=== PATIENT | female | born 1935 | race Caucasian/White ===

== ENCOUNTER 2017-10-01 16:18 | Emergency (ER) | payer MEDICARE, OTHER ==
[2017-10-01 16:29] VITALS: TEMP 97.4
--- NOTE | 2017-10-01 17:11 | RAD ---
PROCEDURE: CHEST RADIOGRAPH, 1 VIEW HISTORY: SOB COMPARISON: Comparison is made to 09/17/2013 FINDINGS: LUNGS: Prominent lung markings is seen. Hyperinflation of the lungs is again noted suspicious for emphysema. PLEURA: No pneumothorax or pleural fluid seen. CARDIOVASCULAR: The cardiac silhouette is mildly enlarged. OSSEOUS STRUCTURES: No significant abnormalities. VISUALIZED UPPER ABDOMEN: Normal. OTHER FINDINGS: None. IMPRESSION: Emphysema versus COPD again noted.
--- NOTE | 2017-10-01 17:12 | RAD ---
PROCEDURE: Radiographs of the Lumbar Spine. HISTORY: LBP s/p slip and fall 3 days ago COMPARISON: No prior. FINDINGS: BONES: Age-indeterminate moderate to severe compression deformity of T12 moderate compression deformity of L2 L4 and L5 are noted. DISC SPACES: Moderate degenerative disc changes associated with multilevel disc is space narrowing and marginal osteophyte formation. OTHER FINDINGS: None. IMPRESSION: Age indeterminate multiple compression deformities in the lumbar spine and lower thoracic spine more prominent at T12, L2, L4 and L5. Moderate degenerative disc changes.
[2017-10-01 17:15] LABS: BASO # 0.1 K/uL (0.0-0.2); BASO % 0.9 % (0.0-2.0); EOS # 0.3 K/uL (0.0-0.7); EOS % 2.6 % (0.0-4.0); HEMOGLOBIN 13.8 g/dL (11.0-16.0); LYMPH # 1.6 K/uL (1.0-4.3); LYMPH % 16.2 % (20.0-40.0); MEAN CELL VOLUME 80.7 fL (81.0-99.0); MEAN CORPUSCULAR HEMOGLOBIN 27.1 pg (27.0-31.0); MEAN CORPUSCULAR HGB CONC 33.6 g/dL (33.0-37.0); MEAN PLATELET VOLUME 8.3 fL (7.2-11.7); MONO # 0.7 K/uL (0.0-0.8); MONO % 6.7 % (0.0-10.0); NEUT # 7.4 K/uL (1.8-7.0); NEUT % 73.6 % (50.0-75.0); NRBC % 0.1 % (0.0-2.0); RBC 5.1 Mil/uL (3.80-5.20); RED CELL DISTRIBUTION WIDTH 14.2 % (11.5-14.5)
[2017-10-01 17:23] LABS: ALB/GLOB RATIO 0.9 (1.0-2.1); ALBUMIN 3.7 g/dL (3.5-5.0); ALT/SGPT 25 U/L (9-52); AST/SGOT 17 U/L (14-36); BLOOD UREA NITROGEN 24 mg/dL (7-17); CALCIUM 9.6 mg/dl (8.6-10.4); GFR AFRICAN-AMERICAN > 60; GFR NON-AFRICAN AMERICAN 53
--- NOTE | 2017-10-01 17:23 | RAD ---
PROCEDURE: Radiographs of the pelvis and bilateral hips HISTORY: R hip pain x 3 days COMPARISON: None. FINDINGS: BONES: Pelvis: No evidence of acute displaced fracture. Right hip:Status post internal fixation through the right femoral neck and shaft likely due to prior intertrochanteric or neck femur fracture. The hardware are seen at appropriate position without evidence of loosening Left hip:Unremarkable. JOINTS: Right hip: Mild osteoarthritic changes Left hip: Mild osteoarthritic changes. Sacroiliac Joints: It arthritic changes. Pubic symphysis: Nxel-[id number] arthritic changes SOFT TISSUES: Normal. OTHER FINDINGS: Diffuse osteopenia noted. IMPRESSION: No evidence of acute displaced fracture.
[2017-10-01] MEDS ORDERED: Sodium Chloride 0.9% 500 ML IV ONE (17:39)
--- NOTE | 2017-10-01 17:41 | C.PDOC ---
History Of Present Illness Patient is an 81 y/o female who presents to the ED with a complaint of right hip pain for the last 3 days. Patient reports she slipped, prompting the onset of the pain, but denies falling. Admits to applying heating pad, worsening pain. Patient has a Hx of right hip surgery with hardware. No other physical complaints at this time. Time Seen by Provider: 10/01/17 16:26 Chief Complaint (Nursing): Lower Extremity Problem/Injury History Per: Patient History/Exam Limitations: no limitations Onset/Duration Of Symptoms: Days (3 days) Current Symptoms Are (Timing): Still Present Recent travel outside of the [place]: No - Hip Description Of Injury: Other (slipped). denies: Fell Past Medical History Reviewed: Historical Data, Nursing Documentation, Vital Signs Vital Signs: Last Vital Signs Temp 97.4 F L 10/01/17 16:26 Pulse 79 10/01/17 19:57 Resp 18 10/01/17 19:57 BP 174/70 H 10/01/17 19:57 Pulse Ox 99 10/01/17 23:44 - Medical History PMH: No Chronic Diseases Other Surgeries: right hip surgery with hardware Family History: States: No Known Family Hx Review Of Systems Except As Marked, All Systems Reviewed And Found Negative. Musculoskeletal: Positive for: Other (right hip pain) Physical Exam - Physical Exam Appears: Well, Non-toxic, In Acute Distress (moderate) Skin: Normal Color, Warm, Dry Head: Atraumatic, Normacephalic Oral Mucosa: Moist Chest: Symmetrical Cardiovascular: Rhythm Regular, No Murmur Respiratory: Normal Breath Sounds, No Rales, No Rhonchi, No Wheezing Back: Normal Inspection, No Vertebral Tenderness, No Paraspinal Tenderness, Other (negative pain in mid spine or lower back) Extremity: Other (pain to right hip ) Neurological/Psych: Oriented x3, Normal Speech, Normal Cognition, Normal Motor, Normal Sensation, Normal Reflexes, Other (no focal deficits) ED Course And Treatment - Laboratory Results Result Diagrams: 10/01/17 17:05 10/01/17 17:05 Lab Interpretation: Abnormal (+ mild hyponatremia) ECG: Interpreted By Me ECG Rhythm: Atrial Fibrillation ECG Interpretation: No Changes From Prior Rate From EC O2 Sat by Pulse Oximetry: 99 Pulse Ox Interpretation: Normal - Radiology CXR: Interpreted by Me, Viewed By Me CXR Interpretation: Yes: Other (IMPRESSION: emphysema veresus COPD again noted. ) - Other Rad LS spine X-Ray: Interpreted by Me, Viewed By Me Interpretation: IMPRESSION: Age indeterminate multiple compression deformities in the lumbar spine and lower thoracic spine more prominent at T12, L2, L4, and L5. Moderate degenerateive disc changes. Hip w/ pelvis gurmeet X-Ray: Interpreted by Me, Viewed By Me Interpretation: IMPRESSION: No evidence of acute displaced fracture. - CT Scan/US CT LS Spine Other Rad Studies (CT/US): Radiology Report Reviewed (Comp Fx's T12, L2, L4, L5 , no sig neurologcal pathology.) Progress Note: ice packs, toradol, Tramadol Reevaluation Time: 19:12 Reassessment Condition: Improved - Physician Consult Information Outcome Of Conversation: 1630 and 1900:d/w Dr. Sharon Stanley, ok to d/c home. Medical Decision Making Medical Decision Making: Lumbar spine CT, EKG, and UA ordered. Toradol, Ultram, and IV fluids administered. R hip strain/sprain w h/o old fx with internal hardware, no new fx., prob strain /sprain 3 days ago, worse with heat therapies, and now improved with ice, NSAIDS , Tramadol. Improved gait, ok for d/c per PMD Mild hyponatramia improved with IVF and should improved with better nutrition. Atrial Fibrillation- chronic- PMD following. Eliquis 2.5 ordered and prescribed. Disposition Doctor Will See Patient In The: Office Counseled Patient/Family Regarding: Studies Performed, Diagnosis - Disposition Referrals: Jelena Stanley MD [Staff Provider] - Disposition: HOME/ ROUTINE Disposition Time: 19:14 Condition: GOOD Additional Instructions: ice therapy 1/2 hour per hour, nothing hot Motrin 400-600 mg every 6 hours as needed Tramadol 50 mg (narcotic pain reliever) 1 tablet every 6 hours as needed Follow-up with Orthopedics or Dr. Sharon Stanley as needed Atrial Fibrillation: Eliquis 2.5 mg tab twice a day. Prescriptions: Apixaban [Eliquis] 2.5 mg PO BID #60 tablet traMADol [Ultram] 50 mg PO Q6H PRN #20 tab PRN Reason: pain Instructions: Atrial Fibrillation (ED), Vertebral Compression Fracture (ED), Arthralgia (ED) Forms: [employer] (Bel[place]ian) - Clinical Impression Clinical Impression: Right hip pain, Chronic lower back pain - Scribe Statement The provider has reviewed the documentation as recorded by the Scribe Charlee Moe All medical record entries made by the Scribe were at my direction and personally dictated by me. I have reviewed the chart and agree that the record accurately reflects my personal performance of the history, physical exam, medical decision making, and the department course for this patient. I have also personally directed, reviewed, and agree with the discharge instructions and disposition.
--- NOTE | 2017-10-01 19:05 | CT ---
EXAM: CT Lumbar Spine Without Intravenous Contrast EXAM DATE/TIME: 10/01/2017 5:39 PM CLINICAL HISTORY: 81 years old, female; Pain; Low back pain; Additional info: T12, l2, l4, l5 comp fx's TECHNIQUE: Axial computed tomography images of the lumbar spine without intravenous contrast. All CT scans at this facility use one or more dose reduction techniques, viz.: automated exposure control; ma/kV adjustment per patient size (including targeted exams where dose is matched to indication; i.e. head); or iterative reconstruction technique. Coronal and sagittal reformatted images were created and reviewed. COMPARISON: There are no prior studies for comparison. FINDINGS: Vertebrae: Bony structures are osteopenic. There are degenerative changes at all levels. There is a mild convex left curve. There degenerative osteophytes at all levels. There is compression fracture of T12 with deformity of superior and inferior endplates. There is associated deformity of the T11-T12 and T12-L1 disc spaces. There are anterior bridging osteophytes T11-T12 and T12-L1. L1 vertebral body is normal in height. There is a compression fracture of L2 with endplate deformity greatest superiorly there is posterior disc space narrowing L1-L2 and L2-L3. There is mild disc bulging L2-L3.. There is mild bowing of the inferior endplate. L3 is normal in height. There is compression fracture of L4 with deformity of superior endplate. There is deformity of the L3-L4 disc space. Compression fracture L5 with deformity of superior endplate. There is L4-L5 disc space narrowing greatest posteriorly. There is L5-S1 disc space narrowing greatest posteriorly. There are no sacral fractures.Posterior elements are intact at all levels. There is degenerative facet disease.Spinous processes align in the expected fashion. Sacroiliac joints are patent. Discs/spinal canal/neural foramina: See above. Soft tissues: Psoas and paraspinous muscles are symmetric. Vasculature: There are vascular calcifications. Stomach and bowel: There is diverticulosis. There is a fecal ball within the rectum. IMPRESSION: Compression fractures T12, L 2, L4 and L5, correlate with history provided; osteopenia degenerative change
[2017-10-01 19:15] LABS: SQUAMOUS EPITHIAL 4 /hpf (0-5); URINE BILIRUBIN NEGATIVE (NEGATIVE); URINE BLOOD NEGATIVE (NEGATIVE); URINE CLARITY Clear (Clear); URINE COLOR Yellow (YELLOW); URINE GLUCOSE (UA) NORMAL (Normal); URINE LEUKOCYTE ESTERASE NEG Leu/uL (Negative); URINE NITRATE NEGATIVE (NEGATIVE); URINE PROTEIN NEGATIVE (NEGATIVE); URINE UROBILINOGEN NORMAL mg/dL (0.2-1.0)
[2017-10-01 19:58] VITALS: BP 174/70; PULSE 79; RESP 18
[2017-10-01 23:44] VITALS: O2SAT 99
--- NOTE | 2017-10-04 12:50 | CARD ---
APPROVED REPORT EKG Measurement Heart [id number] <Conclusion> Atrial fibrillation Septal infarct, age undetermined ST & T wave abnormality, consider inferior ischemia ST & T wave abnormality, consider anterolateral ischemia Abnormal ECG
== END 2017-10-01 19:58 | disposition home or self-care (01) ==
LOC: C.ER 16:18
DX: G89.29 Other chronic pain (principal); M54.5 Low back pain; M25.551 Pain in right hip
CPT/HCPCS: 71010; 72100; 72131; 73521; 80053; 81001; 84484; 85025; 93005; 96372; 99285; J1885; J7040

== ENCOUNTER 2017-11-07 13:57 | Inpatient (IN) | payer MEDICARE, OTHER ==
[2017-11-07 14:04] VITALS: BMI 26.4
[2017-11-07] MEDS ORDERED: Morphine 4 MG/ML VIAL ONE (14:28)
[2017-11-07 15:01] LABS: BASO # 0.1 K/uL (0.0-0.2); BASO % 0.8 % (0.0-2.0); EOS # 0.3 K/uL (0.0-0.7); EOS % 2.7 % (0.0-4.0); HEMOGLOBIN 12.2 g/dL (11.0-16.0); LYMPH % 9.8 % (20.0-40.0); MEAN CELL VOLUME 78.9 fL (81.0-99.0); MEAN CORPUSCULAR HEMOGLOBIN 27.1 pg (27.0-31.0); MEAN CORPUSCULAR HGB CONC 34.3 g/dL (33.0-37.0); MEAN PLATELET VOLUME 9.4 fL (7.2-11.7); MONO # 0.6 K/uL (0.0-0.8); NEUT # 7.9 K/uL (1.8-7.0); NEUT % 80.7 % (50.0-75.0); PLATELET COUNT 316 K/uL (130-400); RBC 4.51 Mil/uL (3.80-5.20); WHITE BLOOD COUNT 9.8 K/uL (4.8-10.8)
[2017-11-07 15:07] LABS: INR 1.7; PROTHROMBIN TIME 18.9 SECONDS (9.7-12.2)
[2017-11-07 15:09] LABS: ALB/GLOB RATIO 1.1 (1.0-2.1); ALBUMIN 3.8 g/dL (3.5-5.0); ALT/SGPT 31 U/L (9-52); AST/SGOT 35 U/L (14-36); BLOOD UREA NITROGEN 18 mg/dL (7-17); CALCIUM 8.7 mg/dl (8.6-10.4); GFR AFRICAN-AMERICAN > 60; GFR NON-AFRICAN AMERICAN > 60
[2017-11-07 15:23] LABS: EOSINOPHIL 3 % (0-4); LYMPHOCYTE 12 % (20-40); MONOCYTE 3 % (0-10); NEUTROPHIL 82 % (50-75); TOTAL CELLS COUNTED 100
[2017-11-07 15:25] LABS: PLATELET ESTIMATE NORMAL (NORMAL)
--- NOTE | 2017-11-07 15:40 | RAD ---
HISTORY: s/p fall COMPARISON: Chest x-ray performed 10/01/17 TECHNIQUE: Chest, one view. FINDINGS: LUNGS: Biapical pleural thickening. Right hilar prominence. Please note that chest x-ray has limited sensitivity for the detection of pulmonary masses. PLEURA: No significant pleural effusion identified. No definite pneumothorax . CARDIOVASCULAR: Cardiomegaly. Dense atherosclerotic calcifications of the aortic knob. OSSEOUS STRUCTURES: Osseous demineralization. Degenerative changes. VISUALIZED UPPER ABDOMEN: Unremarkable. OTHER FINDINGS: None. IMPRESSION: Biapical pleural thickening. Right hilar prominence. Cardiomegaly. Dense atherosclerotic calcifications of the aortic knob.
--- NOTE | 2017-11-07 15:43 | RAD ---
PROCEDURE: Radiographs of the Right Shoulder HISTORY: Pain s/p fall COMPARISON: None available. FINDINGS: BONES: Osseous demineralization. Degenerative changes. No acute displaced fracture. The distal clavicle and underlying ribs appear intact. JOINTS: No acute dislocation. SOFT TISSUES: Soft tissues appear unremarkable. No evidence of radiopaque foreign body. Partially imaged dense atherosclerotic calcifications of the aortic knob. Biapical pleural thickening. IMPRESSION: No acute displaced fracture or dislocation evident. If symptoms persist or if there is continued clinical concern, x-ray follow-up in 7-10 days should be considered.
--- NOTE | 2017-11-07 15:52 | RAD ---
Indication: Pain s/p fall, h/o ORIF Right hip with pelvis radiographs Comparison: Bilateral hips with pelvis performed 10/01/17 Findings: Osseous demineralization limits evaluation for acute fracture lines. Status post internal fixation of the right femoral neck with metallic carlos and screw fixation partially imaged. No acute displaced fracture identified. No dislocation identified. Dense vascular calcifications. Extensive degenerative changes of the lower lumbar spine. Nonspecific bowel gas pattern. Mild to moderate constipation partially imaged. Impression: Osseous demineralization. Degenerative changes. Status post fixation right femoral neck. No acute displaced fracture or dislocation evident. If high clinical index of suspicion, suggest cross-sectional imaging for further evaluation. Otherwise, if symptoms persist or if there is continued clinical concern, x-ray follow-up in 7-10 days should be considered.
--- NOTE | 2017-11-07 16:24 | C.PDOC ---
History Of Present Illness Pt has been having generalized weakness for several days and then she fell today. Time Seen by Provider: 11/07/17 14:01 Chief Complaint (Nursing): Trauma History Per: Patient, Family Current Symptoms Are (Timing): Still Present Current Symptoms: Generalized weakness Fall Associated With With Symptoms: Yes, Positive Injury (right side of body) Severity: Moderate Additional History Per: Prior Records - Symptoms Of CVA Recent Head Trauma: No Past Medical History Reviewed: Historical Data, Nursing Documentation, Vital Signs Vital Signs: Last Vital Signs Temp 98.1 F 11/07/17 14:00 Pulse 74 11/07/17 16:06 Resp 18 11/07/17 16:06 BP 150/74 11/07/17 16:06 Pulse Ox 100 11/07/17 16:06 - Medical History PMH: CHF, HTN Other Surgeries: ORIF of right hip Family History: States: Unknown Family Hx - Social History Hx Alcohol Use: No Hx Substance Use: No - Immunization History Hx Tetanus Toxoid Vaccination: No Hx Influenza Vaccination: No Hx Pneumococcal Vaccination: No Review Of Systems Constitutional: Positive for: Weakness. Negative for: Fever Cardiovascular: Negative for: Chest Pain Respiratory: Negative for: Shortness of Breath Gastrointestinal: Negative for: Vomiting, Abdominal Pain Musculoskeletal: Positive for: Shoulder Pain (right). Negative for: Neck Pain Neurological: Negative for: Seizures, Headache Physical Exam - Physical Exam Appears: Chronically Ill Skin: Normal Color, Warm, Dry Head: Atraumatic Eye(s): bilateral: PERRL, EOMI Neck: Normal ROM, No Midline Cervical Tenderness, No Step Off Deformity, Supple Chest: Symmetrical, No Deformity Cardiovascular: Rhythm Irregular Respiratory: Normal Breath Sounds, No Accessory Muscle Use Gastrointestinal/Abdominal: Soft, No Tenderness Extremity: Tenderness (right hip area and right shoulder area), No Deformity Neurological/Psych: Oriented x3, Normal Motor, Normal Sensation ED Course And Treatment - Laboratory Results Result Diagrams: 11/07/17 14:47 11/07/17 14:47 Lab Interpretation: Abnormal Interpretation Of Abnormal: Hyponatremia ECG: Interpreted By Me, Viewed By Me ECG Rhythm: Atrial Flutter, Nonspecific Changes Rate From EC O2 Sat by Pulse Oximetry: 100 Pulse Ox Interpretation: Normal - Radiology CXR: Viewed By Me, Read By Radiologist CXR Interpretation: Yes: No Acute Disease, Cardiomegaly Progress - Interventions Interventions:: Observation - Medications Administered Intravenous: Opiate - Data Reviewed Data Reviewed: Lab, Diagnostic imaging, EKG, Old records - Patient Status Patient status: Partially improved - Continuity of Care Discussed patient case with:: Patient, Family-HIPPA compliant, ED Nurse, PMD - Patient Plan Patient Plan: Admission, Telemetry Disposition Discussed With : Jelena Stanley Comment: He accepted pt on his service. Doctor Will See Patient In The: Hospital Counseled Patient/Family Regarding: Studies Performed, Diagnosis - Disposition Disposition: HOSPITALIZED Disposition Time: 16:26 Condition: GUARDED - Clinical Impression Clinical Impression: Hyponatremia, Fall at home, Generalized weakness
--- NOTE | 2017-11-07 19:34 | CP.PCM.HP ---
Past Patient History - Past Social History Smoking Status: Never Smoked - CARDIAC Hx Congestive Heart Failure: Yes Hx Hypertension: Yes - ENDOCRINE/METABOLIC Hx Endocrine Disorders: Yes Hx Diabetes Mellitus Type 2: Yes - PSYCHIATRIC Hx Substance Use: No - SURGICAL HISTORY Hx Surgeries: Yes Hx Cataract Extraction: Yes Hx Hysterectomy: Yes Meds Allergies/Adverse Reactions: Allergies Allergy/AdvReac Type Severity Reaction Status Date / Time No Known Allergies Allergy Verified 10/01/17 16:28 Physical Exam - Constitutional Appears: Well - Head Exam Head Exam: ATRAUMATIC, NORMAL INSPECTION, NORMOCEPHALIC - Eye Exam Eye Exam: EOMI, Normal appearance, PERRL Pupil Exam: NORMAL ACCOMODATION, PERRL - ENT Exam ENT Exam: Mucous Membranes Moist, Normal Exam - Neck Exam Neck exam: Positive for: Normal Inspection - Respiratory Exam Respiratory Exam: Decreased Breath Sounds - Cardiovascular Exam Cardiovascular Exam: REGULAR RHYTHM, +S1, +S2 - GI/Abdominal Exam GI & Abdominal Exam: Diminished Bowel Sounds, Soft - Rectal Exam Rectal Exam: Deferred Results - Vital Signs Recent Vital Signs: Last Vital Signs Temp 98.1 F 11/07/17 14:00 Pulse 75 11/07/17 18:30 Resp 12 11/07/17 18:30 BP 140/63 11/07/17 18:30 Pulse Ox 97 11/07/17 18:02 - Labs Result Diagrams: 11/07/17 14:47 11/07/17 14:47 Labs: Laboratory Results - last 24 hr 11/07/17 11/07/17 11/07/17 14:47 14:47 14:47 WBC 9.8 RBC 4.51 Hgb 12.2 Hct 35.6 MCV 78.9 L MCH 27.1 MCHC 34.3 RDW 14.0 Plt Count 316 MPV 9.4 Neut % (Auto) 80.7 H Lymph % (Auto) 9.8 L [place] % (Auto) 6.0 Eos % (Auto) 2.7 Baso % (Auto) 0.8 Neut # (Auto) 7.9 H Lymph # (Auto) 1.0 [place] # (Auto) 0.6 Eos # (Auto) 0.3 Baso # (Auto) 0.1 Neutrophils % (Manual) 82 H Lymphocytes % (Manual) 12 L Monocytes % (Manual) 3 Eosinophils % (Manual) 3 Platelet Estimate Normal RBC Morphology Normal PT 18.9 H INR 1.7 APTT 38 H Sodium 117 L* Potassium 3.6 Chloride 79 L Carbon Dioxide 28 Anion Gap 14 BUN 18 H Creatinine 0.8 Est GFR ( Amer) > 60 Est GFR (Non-Af Amer) > 60 Random Glucose 141 H Calcium 8.7 Total Bilirubin 1.0 AST 35 ALT 31 Alkaline Phosphatase 125 Total Protein 7.2 Albumin 3.8 Globulin 3.4 Albumin/Globulin Ratio 1.1 Urine Osmolality 11/07/17 19:23 WBC RBC Hgb Hct MCV MCH MCHC RDW Plt Count MPV Neut % (Auto) Lymph % (Auto) [place] % (Auto) Eos % (Auto) Baso % (Auto) Neut # (Auto) Lymph # (Auto) [place] # (Auto) Eos # (Auto) Baso # (Auto) Neutrophils % (Manual) Lymphocytes % (Manual) Monocytes % (Manual) Eosinophils % (Manual) Platelet Estimate RBC Morphology PT INR APTT Sodium Potassium Chloride Carbon Dioxide Anion Gap BUN Creatinine Est GFR ( Amer) Est GFR (Non-Af Amer) Random Glucose Calcium Total Bilirubin AST ALT Alkaline Phosphatase Total Protein Albumin Globulin Albumin/Globulin Ratio Urine Osmolality 204 L
[2017-11-07] MEDS: (Novolog) Insulin Aspart, Recombinant 100 u/ml 10 ml vial SC SCH (23:06)
[2017-11-08] MEDS: Morphine 4 MG/ML VIAL IVP PRN ×2 (01:08→21:08)
[2017-11-08 06:34] LABS: BASO # 0.1 K/uL (0.0-0.2); BASO % 1.4 % (0.0-2.0); EOS # 0.4 K/uL (0.0-0.7); EOS % 4.7 % (0.0-4.0); HEMOGLOBIN 12.2 g/dL (11.0-16.0); LYMPH # 1.3 K/uL (1.0-4.3); LYMPH % 15.6 % (20.0-40.0); MEAN CORPUSCULAR HEMOGLOBIN 27.1 pg (27.0-31.0); MEAN CORPUSCULAR HGB CONC 34.3 g/dL (33.0-37.0); MEAN PLATELET VOLUME 9.3 fL (7.2-11.7); MONO # 0.6 K/uL (0.0-0.8); MONO % 7.5 % (0.0-10.0); NEUT # 5.9 K/uL (1.8-7.0); NEUT % 70.8 % (50.0-75.0); NRBC % 0.1 % (0.0-2.0); RBC 4.49 Mil/uL (3.80-5.20); RED CELL DISTRIBUTION WIDTH 14.5 % (11.5-14.5); WHITE BLOOD COUNT 8.3 K/uL (4.8-10.8)
[2017-11-08] MEDS: (Novolog) Insulin Aspart, Recombinant 100 u/ml 10 ml vial SC SCH ×4 (07:13→21:13)
[2017-11-08 07:41] LABS: ALB/GLOB RATIO 1.1 (1.0-2.1); ALBUMIN 3.5 g/dL (3.5-5.0); ALT/SGPT 25 U/L (9-52); AST/SGOT 25 U/L (14-36); BLOOD UREA NITROGEN 14 mg/dL (7-17); CALCIUM 8.7 mg/dl (8.6-10.4); GFR AFRICAN-AMERICAN > 60; GFR NON-AFRICAN AMERICAN > 60
[2017-11-08] MEDS: Metoprolol Succinate 12.5 mg XL PO SCH (09:31)
[2017-11-08] MEDS: Enoxaparin 40 mg Syringe SC SCH (09:31)
[2017-11-08] MEDS: Pantoprazole 40 mg EC Tab PO SCH (09:31)
[2017-11-08] MEDS: Lidocaine 5% Patch TD SCH (11:25)
[2017-11-08 11:26] LABS: URINE BACTERIA RARE (<OCC); URINE BILIRUBIN NEGATIVE (NEGATIVE); URINE BLOOD NEGATIVE (NEGATIVE); URINE CLARITY Clear (Clear); URINE COLOR Straw (YELLOW); URINE GLUCOSE (UA) NORMAL (Normal); URINE LEUKOCYTE ESTERASE NEG Leu/uL (Negative); URINE NITRATE NEGATIVE (NEGATIVE); URINE PROTEIN NEGATIVE (NEGATIVE); URINE UROBILINOGEN NORMAL mg/dL (0.2-1.0)
--- NOTE | 2017-11-08 12:00 | CARD ---
APPROVED REPORT EKG Measurement Heart [id number] NM P-70 [id number] <Conclusion> Atrial flutter with variable AV block ST & T wave abnormality, consider inferior ischemia Abnormal ECG
--- NOTE | 2017-11-08 16:40 | CP.PCM.PN ---
Subjective - Date & Time of Evaluation Date of Evaluation: 11/08/17 Time of Evaluation: 13:00 - Subjective Subjective: clinically same Objective - Vital Signs/Intake and Output Vital Signs (last 24 hours): Temp Pulse Resp BP Pulse Ox 97.6 F 110 H 20 99/63 L 98 11/08/17 15:58 11/08/17 15:58 11/08/17 15:58 11/08/17 15:58 11/08/17 15:58 Intake and Output: 11/08/17 11/08/17 06:59 18:59 Intake Total 540 Output Total 400 Balance 140 - Medications Medications: Current Medications Cyclobenzaprine HCl (Flexeril) 10 mg PO DAILY [facility] Last Admin: 11/08/17 09:31 Dose: 10 mg Enoxaparin Sodium (Lovenox) 40 mg SC DAILY [facility] Last Admin: 11/08/17 09:31 Dose: 40 mg Insulin Aspart (Novolog) 0 unit SC [facility] PRN Reason: Protocol Last Admin: 11/08/17 12:23 Dose: Not Given Lidocaine (Lidoderm) 2 ea TD DAILY [facility] Last Admin: 11/08/17 11:25 Dose: 2 ea Metformin HCl (Glucophage) 500 mg PO BID [facility] Last Admin: 11/08/17 09:31 Dose: 500 mg Metoprolol Succinate (Toprol Xl) 12.5 mg PO DAILY [facility] Last Admin: 11/08/17 09:31 Dose: 12.5 mg Montelukast Sodium (Singulair) 10 mg PO HS [facility] Last Admin: 11/07/17 21:20 Dose: 10 mg Morphine Sulfate (Morphine) 2 mg IVP Q4 PRN PRN Reason: Pain, moderate (4-7) Last Admin: 11/08/17 01:08 Dose: 2 mg Pantoprazole Sodium (Protonix Ec Tab) 40 mg PO DAILY [facility] Last Admin: 11/08/17 09:31 Dose: 40 mg Pneumococcal Polyvalent Vaccine (Pneumovax 23 Vaccine) 0.5 ml IM .ONCE ONE Stop: 11/09/17 10:01 Rosuvastatin Calcium (Crestor) 10 mg PO HS [facility] Last Admin: 11/07/17 21:20 Dose: 10 mg Sitagliptin Phosphate (Januvia) 50 mg PO DAILY [facility] Last Admin: 11/08/17 09:31 Dose: 50 mg Sodium Chloride (Sodium Chloride Tab) 1 gm PO BID [facility] Last Admin: 11/08/17 09:31 Dose: 1 gm - Labs Labs: 11/08/17 06:21 11/08/17 06:21 PT 18.9 SECONDS (9.7-12.2) H 11/07/17 14:47 INR 1.7 11/07/17 14:47 APTT 38 SECONDS (21-34) H 11/07/17 14:47 - Constitutional Appears: Well - Head Exam Head Exam: ATRAUMATIC, NORMAL INSPECTION, NORMOCEPHALIC - Eye Exam Eye Exam: EOMI, Normal appearance, PERRL Pupil Exam: NORMAL ACCOMODATION, PERRL - ENT Exam ENT Exam: Mucous Membranes Moist, Normal Exam - Neck Exam Neck Exam: Full ROM, Normal Inspection. absent: Lymphadenopathy - Respiratory Exam Respiratory Exam: Decreased Breath Sounds - Cardiovascular Exam Cardiovascular Exam: REGULAR RHYTHM, +S1, +S2 - GI/Abdominal Exam GI & Abdominal Exam: Soft, Diminished Bowel Sounds - Rectal Exam Rectal Exam: Deferred
--- NOTE | 2017-11-08 21:02 | CON ---
DATE: HISTORY OF PRESENT ILLNESS: The patient was admitted by Dr. Danielle Stanley with a diagnosis of hyponatremia, generalized weakness and fall. The patient was seen by me in my office recently. Previously, she had a fracture of the right hip - intertrochanteric fracture, treated with open reduction and internal fixation with intramedullary nail. When she fell, she started complaining of pain in the right hip and right shoulder. She was seen by me recently for severe low back pain. She has evidence of lumbar spinal stenosis. Tenderness from L1 to S1 noted. Bilateral sciatic notch tenderness. Kyphosis deformity noted. PHYSICAL EXAMINATION: EXTREMITIES: Examination of the right shoulder reveals tenderness over the anterior aspect of the shoulder. No crepitus noted. Range of motion in shoulder is painful. Tenderness also noted over the acromioclavicular joint. Examination of the right tip revealed a well healed surgical scars. Prominence noted below the greater trochanter. The range of motion of the hip is painful in the extremes. No evidence of loosening of the intramedullary fixation noted. RADIOLOGIC DATA: X-rays of the right shoulder revealed degenerative joint disease changes. No evidence of fractures or dislocations noted. X-rays of the right hip revealed intramedullary carlos in place with prominence of the lag screw. DIAGNOSES: 1. Contusion of the right hip status post open reduction and internal fixation with intramedullary carlos. 2. Contusion of the right shoulder and sprain of the right shoulder. 3. Lumbar spinal stenosis. PLAN: 1. The patient was supposed to get lumbar epidural injection, but could not be get them due to insurance issues and she being on anticoagulants. Currently, the anticoagulants will be discontinued. We will try to administer lumbar epidural injection in [facility]3]. 2. We will start the patient on physical therapy. Ambulation and weightbearing as tolerated. 3. Lidoderm patches to be applied to the right shoulder and right hip 12 hours a day. We will follow the patient. Case was discussed with Dr. Danielle Stanley. Wale Martinez MD
--- NOTE | 2017-11-09 02:24 | CON ---
DATE: 11/08/2017 REFERRING PHYSICIAN: Danielle Stanley MD HISTORY OF PRESENT ILLNESS: An 81-year-old female, who was brought in with a history of fall, hurt her back and hip. The patient has been seen and evaluated by orthopedic Dr. Martinez and Dr. Sharon Stanley. The patient is scheduled for epidural in coming few days. The patient has a history of diabetes, hypertension, high cholesterol, atrial fibrillation. She came in after a fall, so essentially she is bed to chair ridden. HOME MEDICATIONS: She was maintained on digoxin 0.125, metformin 750, Januvia, metoprolol 25 mg p.o. daily, and simvastatin. PERSONAL HISTORY: Does not smoke. Does not drink. ALLERGIES: DENIED. PAST SURGICAL HISTORY: Cataract surgery, hysterectomy, right hip surgery for replacement, also fracture of right wrist. FAMILY HISTORY: Positive for hypertension. REVIEW OF SYSTEMS: CONSTITUTIONAL: Generalized weakness is noted, SKIN: No rashes. HEAD: No headaches. EYES: No visual disturbances. NECK: No swollen glands. PULMONARY: Denies any cough. Shortness of breath is noted. CARDIAC: She does have occasional chest discomfort, shortness of breath, history of hypertension, history of atrial fibrillation on Xarelto, which was started about two days ago. GI: Negative for abdominal pain. : Negative for dysuria. MUSCULOSKELETAL: Severe back pain and multiple joint pains. NEUROLOGICALLY: Dizziness is noted, questionable syncope. PHYSICAL EXAMINATION: GENERAL: Shows elderly female, chronically sick, in no acute distress. VITAL SIGNS: She is 5 feet, weighs 135 pounds. Her blood pressure is 108/75, heart rate of 88, AFib on the monitor, respiratory rate of 20, temperature of 97.6, O2 sat is 98 on room air. HEENT: Head is normocephalic. Eyes; no pallor, no icterus. Mouth, absence of multiple teeth. LUNGS: Clear to auscultation bilaterally. HEART: PMI is not localized. S1 and S2 is distant and irregular. Grade 2/6 holosystolic murmur mitral. ABDOMEN: Soft and nontender. EXTREMITIES: No cyanosis, clubbing or edema. Distal pulses are intact. LABORATORY DATA: Hemoglobin is 12.2, platelet counts are normal, Sodium was 117, today is 122. EKG has atrial fibrillation, nonspecific ST-T changes. Telemetry has AFib. ASSESSMENT: An 81-year-old female with history of hypertension, history of diabetes, has presented with severe back pains. The patient recommendation is the patient to be off Xarelto and all blood thinners for 5 days prior to epidural intervention. We will continue with beta-blockers to control the heart rate along with digoxin 0.125 1 a day. We will obtain echocardiogram with Doppler studies to evaluate the left ventricular size and function. We will follow as needed. I thank you kindly. Lopez Alejandro MD
[2017-11-09 06:35] LABS: INR 1.1; PROTHROMBIN TIME 12.4 SECONDS (9.7-12.2)
[2017-11-09] MEDS: (Novolog) Insulin Aspart, Recombinant 100 u/ml 10 ml vial SC SCH ×4 (07:47→22:31)
[2017-11-09] MEDS ORDERED: Pneumococcal 23-Valent Vaccine IM ONE (10:00)
[2017-11-09] MEDS: Lidocaine 5% Patch TD SCH (10:35)
[2017-11-09] MEDS: Enoxaparin 40 mg Syringe SC SCH (10:36)
[2017-11-09] MEDS: Pantoprazole 40 mg EC Tab PO SCH (10:37)
[2017-11-09] MEDS: Metoprolol Succinate 12.5 mg XL PO SCH ×2 (10:38→18:28)
[2017-11-09] MEDS ORDERED: Influenza Vaccine 60 mcg/0.5 mL SYR (4YR UP) IM ONE (12:00)
--- NOTE | 2017-11-09 12:14 | CARD ---
APPROVED REPORT EXAM: Two-dimensional and M-mode echocardiogram with Doppler and color Doppler. Other Information Quality : [employer] : INDICATION Atrial Fibrillation M-Mode DIMENSIONS RVDd1.25 (2.1-3.2cm)Left Atrium (MM)3.94 (2.5-4.0cm) IVSd1.17 (0.7-1.1cm)Aortic Root2.96 (2.2-3.7cm) LVDd4.11 (4.0-5.6cm)Aortic Cusp Exc.1.43 (1.5-2.0cm) PWd1.17 (0.7-1.1cm)FS (%) 28 % LVDs2.97 (2.0-3.8cm)LVEF (%)54 (>50%) Mitral Valve MV E Tgadwwxb68.1cm/sMV A Lpokefeq42.5cm/sE/A ratio2.5 TDI E/Lateral E'0.0E/Medial E'0.0 Tricuspid Valve TR Peak [id number]/sTR Peak Gr.[id number] <Conclusion> pt appears in a,fib. normal size lv,ra & rv. la is mildly dilated. lvh with lvef of 30-35%. probably normal lv diastolic funciton. normal mitral,aortic,tv & pv. mild mr,tr with normal pulmonary systolic pressures of 32 mm of hg. normal size sclerotic aortic root. no pericardial effusion.
--- NOTE | 2017-11-09 12:42 | CP.PCM.PN ---
Subjective - Date & Time of Evaluation Date of Evaluation: 11/09/17 Time of Evaluation: 12:40 - Subjective Subjective: pains all over. rapid a,fib.vital noted. Objective - Vital Signs/Intake and Output Vital Signs (last 24 hours): Temp Pulse Resp BP Pulse Ox 97.8 F 115 H 20 130/78 99 11/09/17 08:19 11/09/17 08:19 11/09/17 08:19 11/09/17 08:19 11/09/17 08:19 Intake and Output: 11/09/17 11/09/17 06:59 18:59 Intake Total 240 Balance 240 - Medications Medications: Current Medications Cyclobenzaprine HCl (Flexeril) 10 mg PO DAILY [facility] Last Admin: 11/09/17 10:35 Dose: 10 mg Digoxin (Lanoxin) 0.125 mg PO DAILY@1800 [facility] Enoxaparin Sodium (Lovenox) 40 mg SC DAILY [facility] Last Admin: 11/09/17 10:36 Dose: 40 mg Insulin Aspart (Novolog) 0 unit SC [facility] PRN Reason: Protocol Last Admin: 11/09/17 07:47 Dose: Not Given Lidocaine (Lidoderm) 2 ea TD DAILY [facility] Last Admin: 11/09/17 10:35 Dose: 2 ea Metformin HCl (Glucophage) 500 mg PO BID [facility] Last Admin: 11/09/17 10:35 Dose: 500 mg Metoprolol Succinate (Toprol Xl) 12.5 mg PO BID [facility] Montelukast Sodium (Singulair) 10 mg PO HS [facility] Last Admin: 11/08/17 21:24 Dose: Not Given Morphine Sulfate (Morphine) 2 mg IVP Q4 PRN PRN Reason: Pain, moderate (4-7) Last Admin: 11/08/17 21:08 Dose: 2 mg Pantoprazole Sodium (Protonix Ec Tab) 40 mg PO DAILY [facility] Last Admin: 11/09/17 10:37 Dose: 40 mg Rosuvastatin Calcium (Crestor) 10 mg PO HS [facility] Last Admin: 11/08/17 21:23 Dose: 10 mg Sitagliptin Phosphate (Januvia) 50 mg PO DAILY [facility] Last Admin: 11/09/17 10:35 Dose: 50 mg Sodium Chloride (Sodium Chloride Tab) 1 gm PO BID [facility] Last Admin: 11/09/17 10:37 Dose: 1 gm - Labs Labs: 11/08/17 06:21 11/08/17 06:21 PT 12.4 SECONDS (9.7-12.2) H D 11/09/17 06:20 INR 1.1 D 11/09/17 06:20 APTT 38 SECONDS (21-34) H 11/07/17 14:47 - Constitutional Appears: Chronically Ill - Head Exam Head Exam: NORMOCEPHALIC - Eye Exam Eye Exam: Normal appearance - Respiratory Exam Respiratory Exam: Clear to Ausculation Bilateral - Cardiovascular Exam Cardiovascular Exam: Tachycardia, Irregular Rhythm - GI/Abdominal Exam GI & Abdominal Exam: Soft - Extremities Exam Extremities Exam: absent: Pedal Edema - Neurological Exam Neurological Exam: Alert, Oriented x3 Assessment and Plan - Assessment and Plan (Free Text) Assessment: echo noted.lvef of 30-345%. will increase toprol bid.add dig.inr noted.
--- NOTE | 2017-11-09 13:03 | CP.PCM.PN ---
Subjective - Date & Time of Evaluation Date of Evaluation: 11/16/17 Time of Evaluation: 10:40 - Subjective Subjective: clinically same Objective - Vital Signs/Intake and Output Vital Signs (last 24 hours): Temp Pulse Resp BP Pulse Ox 97.8 F 115 H 20 130/78 99 11/09/17 08:19 11/09/17 08:19 11/09/17 08:19 11/09/17 08:19 11/09/17 08:19 Intake and Output: 11/09/17 11/09/17 06:59 18:59 Intake Total 240 Balance 240 - Medications Medications: Current Medications Cyclobenzaprine HCl (Flexeril) 10 mg PO DAILY [facility] Last Admin: 11/09/17 10:35 Dose: 10 mg Digoxin (Lanoxin) 0.125 mg PO DAILY@1800 [facility] Enoxaparin Sodium (Lovenox) 40 mg SC DAILY [facility] Last Admin: 11/09/17 10:36 Dose: 40 mg Insulin Aspart (Novolog) 0 unit SC [facility] PRN Reason: Protocol Last Admin: 11/09/17 07:47 Dose: Not Given Lidocaine (Lidoderm) 2 ea TD DAILY [facility] Last Admin: 11/09/17 10:35 Dose: 2 ea Metformin HCl (Glucophage) 500 mg PO BID [facility] Last Admin: 11/09/17 10:35 Dose: 500 mg Metoprolol Succinate (Toprol Xl) 12.5 mg PO BID [facility] Montelukast Sodium (Singulair) 10 mg PO HS [facility] Last Admin: 11/08/17 21:24 Dose: Not Given Morphine Sulfate (Morphine) 2 mg IVP Q4 PRN PRN Reason: Pain, moderate (4-7) Last Admin: 11/08/17 21:08 Dose: 2 mg Pantoprazole Sodium (Protonix Ec Tab) 40 mg PO DAILY [facility] Last Admin: 11/09/17 10:37 Dose: 40 mg Rosuvastatin Calcium (Crestor) 10 mg PO HS [facility] Last Admin: 11/08/17 21:23 Dose: 10 mg Sitagliptin Phosphate (Januvia) 50 mg PO DAILY [facility] Last Admin: 11/09/17 10:35 Dose: 50 mg Sodium Chloride (Sodium Chloride Tab) 1 gm PO BID [facility] Last Admin: 11/09/17 10:37 Dose: 1 gm - Labs Labs: 11/08/17 06:21 11/08/17 06:21 PT 12.4 SECONDS (9.7-12.2) H D 11/09/17 06:20 INR 1.1 D 11/09/17 06:20 APTT 38 SECONDS (21-34) H 11/07/17 14:47 - Constitutional Appears: Well - Head Exam Head Exam: ATRAUMATIC, NORMAL INSPECTION, NORMOCEPHALIC - Eye Exam Eye Exam: EOMI, Normal appearance, PERRL Pupil Exam: NORMAL ACCOMODATION, PERRL - ENT Exam ENT Exam: Mucous Membranes Moist, Normal Exam - Neck Exam Neck Exam: Full ROM, Normal Inspection. absent: Lymphadenopathy - Respiratory Exam Respiratory Exam: Decreased Breath Sounds - Cardiovascular Exam Cardiovascular Exam: REGULAR RHYTHM, +S1, +S2 - GI/Abdominal Exam GI & Abdominal Exam: Soft, Diminished Bowel Sounds - Rectal Exam Rectal Exam: Deferred
--- NOTE | 2017-11-09 17:19 | CT ---
PROCEDURE: CT Cervical Spine without contrast HISTORY: Upper neck pain COMPARISON: None available. TECHNIQUE: Axial computed tomography images were obtained of the cervical spine without the use of intravenous contrast. Coronal and sagittal reformatted images were created and reviewed. Radiation dose: Total exam DLP = 290.45 mGy-cm. This CT exam was performed using one or more of the following dose reduction techniques: Automated exposure control, adjustment of the mA and/or kV according to patient size, and/or use of iterative reconstruction technique. FINDINGS: VERTEBRAE: No evidence of acute fracture or destructive bony lesion. Normal alignment of the cervical vertebrae without evidence of significant subluxation. DISCS/SPINAL CANAL/NEURAL FORAMINA: There are advanced degenerative changes at the cervical spine associated with large bridging anterior osteophyte formation. There are multilevel posterior osteophyte lipping and osteophyte disc bulge complex more prominent at C4-C5 C6-C7 and C7-T1. There is large partially calcified soft tissue density posterior to the dental process likely represent advanced arthritic and hypertrophic arthritic changes. PARASPINAL SOFT TISSUES: Unremarkable. OTHER FINDINGS: None. IMPRESSION: No evidence of acute fracture or subluxation. No evidence of destructive bony lesion. Advanced disc and endplate changes associated with large osteophyte formation. Multilevel posterior osteophyte disc bulge complex more prominent at C4-C5, C6-7 and C7-T1 which resulting in multilevel spinal and neural foraminal narrowing. Advanced arthritic changes at the C1-C2 articulation with partially calcified density posterior to the indolent toilet process which resulting in mild upper spine stenosis. If indicated further assessment by MRI may be obtained.
[2017-11-09] MEDS: Digoxin 125 mcg (0.125 mg) Tab PO SCH (17:32)
--- NOTE | 2017-11-09 17:58 | CT ---
PROCEDURE: CT Thoracic Spine without contrast HISTORY: upper neck pain COMPARISON: Comparison is made with the previous CT of the chest dated 01/18/2014 TECHNIQUE: Axial computed tomography images were obtained of the thoracic spine without intravenous contrast. Coronal and sagittal reformatted images were created and reviewed. Radiation dose: Total exam DLP = 402.88 mGy-cm. This CT exam was performed using one or more of the following dose reduction techniques: Automated exposure control, adjustment of the mA and/or kV according to patient size, and/or use of iterative reconstruction technique. FINDINGS: VERTEBRAE: There is a moderate to mildly severe compression deformity of T12 vertebral body. Diffuse osteopenia is noted. There is also moderate compression deformity of L2 vertebral body. DISCS/SPINAL CANAL/NEURAL FORAMINA: Vswb-fm-xhwuitty degenerative disc changes. Bony retropulsion at T12 associated with fmvx-ma-vzaceivo spinal stenosis.. PARASPINAL SOFT TISSUES: Unremarkable. OTHER FINDINGS: Subacute or chronic fracture at the posterior aspect of right 9th rib. There is adjacent heterogeneous sclerotic changes at the posterior portion of the right 9th rib of uncertain etiology.. IMPRESSION: Moderate to mildly severe compression deformity of T12 vertebral body associated with bony retropulsion and gllf-bj-soehanzo spinal stenosis at this level. Moderate compression deformity of L2 vertebral body. Subacute or old right 9th rib fracture. Abnormal appearing of the visualized portion of the right 9th rib and the possibility of infiltrative neoplasm process is not totally excluded.
--- NOTE | 2017-11-09 18:19 | RAD ---
PROCEDURE: Radiographs of the Right Shoulder HISTORY: right shoulder pain COMPARISON: No prior. FINDINGS: BONES: No radiographic evidence of acute displaced fracture. Diffuse osteopenia JOINTS: Normal. Glenohumeral and acromioclavicular joints preserved. No osteoarthritis. SOFT TISSUES: Normal. OTHER FINDINGS: None. IMPRESSION: No radiographic evidence of acute fracture or dislocation.
[2017-11-10] MEDS: (Novolog) Insulin Aspart, Recombinant 100 u/ml 10 ml vial SC SCH ×4 (07:32→21:48)
[2017-11-10 08:38] LABS: BLOOD UREA NITROGEN 13 mg/dL (7-17); GFR AFRICAN-AMERICAN > 60; GFR NON-AFRICAN AMERICAN 60
[2017-11-10 08:39] LABS: ALB/GLOB RATIO 1.1 (1.0-2.1); ALBUMIN 3.3 g/dL (3.5-5.0); ALT/SGPT 26 U/L (9-52); AST/SGOT 19 U/L (14-36); CALCIUM 8.8 mg/dl (8.6-10.4)
[2017-11-10 08:50] LABS: HEMOGLOBIN 11.4 g/dL (11.0-16.0); MEAN CORPUSCULAR HEMOGLOBIN 27.2 pg (27.0-31.0); MEAN CORPUSCULAR HGB CONC 33.5 g/dL (33.0-37.0); MEAN PLATELET VOLUME 9.7 fL (7.2-11.7); RBC 4.19 Mil/uL (3.80-5.20); RED CELL DISTRIBUTION WIDTH 14.1 % (11.5-14.5)
[2017-11-10 08:52] LABS: MEAN CELL VOLUME 81.3 fL (81.0-99.0)
[2017-11-10] MEDS: Enoxaparin 40 mg Syringe SC SCH (09:23)
[2017-11-10] MEDS: Lidocaine 5% Patch TD SCH (09:24)
[2017-11-10] MEDS: Pantoprazole 40 mg EC Tab PO SCH (09:24)
[2017-11-10] MEDS: Metoprolol Succinate 12.5 mg XL PO SCH ×2 (09:24→17:41)
--- NOTE | 2017-11-10 13:13 | CP.PCM.PN ---
Subjective - Date & Time of Evaluation Date of Evaluation: 11/10/17 Time of Evaluation: 13:12 - Subjective Subjective: pain.a,fib.v rate is controlled. Objective - Vital Signs/Intake and Output Vital Signs (last 24 hours): Temp Pulse Resp BP Pulse Ox 97.6 F 69 20 140/89 99 11/10/17 08:09 11/10/17 08:09 11/10/17 08:09 11/10/17 08:09 11/10/17 08:09 Intake and Output: 11/10/17 11/10/17 06:59 18:59 Intake Total 240 Output Total 2 Balance 238 - Medications Medications: Current Medications Cyclobenzaprine HCl (Flexeril) 10 mg PO DAILY [facility] Last Admin: 11/10/17 09:24 Dose: 10 mg Digoxin (Lanoxin) 0.125 mg PO DAILY@1800 [facility] Last Admin: 11/09/17 17:32 Dose: 0.125 mg Enoxaparin Sodium (Lovenox) 40 mg SC DAILY [facility] Last Admin: 11/10/17 09:23 Dose: 40 mg Insulin Aspart (Novolog) 0 unit SC [facility] PRN Reason: Protocol Last Admin: 11/10/17 12:15 Dose: 2 unit Lidocaine (Lidoderm) 2 ea TD DAILY [facility] Last Admin: 11/10/17 09:24 Dose: 2 ea Metformin HCl (Glucophage) 500 mg PO BID [facility] Last Admin: 11/10/17 09:24 Dose: 500 mg Metoprolol Succinate (Toprol Xl) 12.5 mg PO BID [facility] Last Admin: 11/10/17 09:24 Dose: 12.5 mg Morphine Sulfate (Morphine) 2 mg IVP Q4 PRN PRN Reason: Pain, moderate (4-7) Last Admin: 11/10/17 01:16 Dose: 2 mg Pantoprazole Sodium (Protonix Ec Tab) 40 mg PO DAILY [facility] Last Admin: 11/10/17 09:24 Dose: 40 mg Rosuvastatin Calcium (Crestor) 10 mg PO HS [facility] Last Admin: 11/09/17 21:45 Dose: 10 mg Sitagliptin Phosphate (Januvia) 50 mg PO DAILY [facility] Last Admin: 11/10/17 09:24 Dose: 50 mg Sodium Chloride (Sodium Chloride Tab) 1 gm PO BID [facility] Last Admin: 11/10/17 09:24 Dose: 1 gm - Labs Labs: 02/08/18 08:02 11/10/17 08:02 PT 12.4 SECONDS (9.7-12.2) H D 11/09/17 06:20 INR 1.1 D 11/09/17 06:20 APTT 38 SECONDS (21-34) H 11/07/17 14:47 - Constitutional Appears: Chronically Ill - Head Exam Head Exam: NORMOCEPHALIC - Neck Exam Neck Exam: Normal Inspection - Respiratory Exam Respiratory Exam: Clear to Ausculation Bilateral - Cardiovascular Exam Cardiovascular Exam: Irregular Rhythm, REGULAR RHYTHM, Murmur - GI/Abdominal Exam GI & Abdominal Exam: Soft - Extremities Exam Extremities Exam: absent: Pedal Edema - Neurological Exam Neurological Exam: Alert, Oriented x3 Assessment and Plan - Assessment and Plan (Free Text) Assessment: a.,fib.off xarelto .ok for epidural after 5 days off.
--- NOTE | 2017-11-10 14:45 | CP.PCM.PN ---
Subjective - Date & Time of Evaluation Date of Evaluation: 11/10/17 Time of Evaluation: 14:43 - Subjective Subjective: PT TO BE SEEN BY DR. Terrie BERNSTEIN DURING ROUNDS. DR. BERNSTEIN REQUESTING A CONSULT WITH DR. Andrew BRITTON FOR EPIDURAL TOMORROW MORNING. PER DR BERNSTEIN PT TO BE NPO PAST MIDNIGHT FOR EPIDURAL TOMORROW MORNING. HOLD LOVENOX. NOTIFIED PRIMARY RN. NO FURTHER ORDERS. Objective - Vital Signs/Intake and Output Vital Signs (last 24 hours): Temp Pulse Resp BP Pulse Ox 97.6 F 69 20 140/89 99 11/10/17 08:09 11/10/17 08:09 11/10/17 08:09 11/10/17 08:09 11/10/17 08:09 Intake and Output: 11/10/17 11/10/17 06:59 18:59 Intake Total 240 Output Total 2 Balance 238 - Medications Medications: Current Medications Cyclobenzaprine HCl (Flexeril) 10 mg PO DAILY [facility] Last Admin: 11/10/17 09:24 Dose: 10 mg Digoxin (Lanoxin) 0.125 mg PO DAILY@1800 [facility] Last Admin: 11/09/17 17:32 Dose: 0.125 mg Insulin Aspart (Novolog) 0 unit SC ACHS [facility] PRN Reason: Protocol Last Admin: 11/10/17 12:15 Dose: 2 unit Lidocaine (Lidoderm) 2 ea TD DAILY [facility] Last Admin: 11/10/17 09:24 Dose: 2 ea Metformin HCl (Glucophage) 500 mg PO BID [facility] Last Admin: 11/10/17 09:24 Dose: 500 mg Metoprolol Succinate (Toprol Xl) 12.5 mg PO BID [facility] Last Admin: 11/10/17 09:24 Dose: 12.5 mg Morphine Sulfate (Morphine) 2 mg IVP Q4 PRN PRN Reason: Pain, moderate (4-7) Last Admin: 11/10/17 01:16 Dose: 2 mg Pantoprazole Sodium (Protonix Ec Tab) 40 mg PO DAILY [facility] Last Admin: 11/10/17 09:24 Dose: 40 mg Rosuvastatin Calcium (Crestor) 10 mg PO HS [facility] Last Admin: 11/09/17 21:45 Dose: 10 mg Sitagliptin Phosphate (Januvia) 50 mg PO DAILY [facility] Last Admin: 11/10/17 09:24 Dose: 50 mg Sodium Chloride (Sodium Chloride Tab) 1 gm PO BID [facility] Last Admin: 11/10/17 09:24 Dose: 1 gm - Labs Labs: 11/10/17 08:02 11/10/17 08:02 PT 12.4 SECONDS (9.7-12.2) H D 11/09/17 06:20 INR 1.1 D 11/09/17 06:20 APTT 38 SECONDS (21-34) H 11/07/17 14:47
[2017-11-10] MEDS: Digoxin 125 mcg (0.125 mg) Tab PO SCH (17:41)
--- NOTE | 2017-11-10 18:32 | CP.PCM.PN ---
Subjective - Date & Time of Evaluation Date of Evaluation: 11/10/17 Time of Evaluation: 11:20 - Subjective Subjective: clinically same Objective - Vital Signs/Intake and Output Vital Signs (last 24 hours): Temp Pulse Resp BP Pulse Ox 97.8 F 102 H 20 118/72 96 11/10/17 16:00 11/10/17 16:17 11/10/17 16:00 11/10/17 16:00 11/10/17 16:00 Intake and Output: 11/10/17 11/10/17 06:59 18:59 Intake Total 240 480 Output Total 2 Balance 238 480 - Medications Medications: Current Medications Cyclobenzaprine HCl (Flexeril) [address] [facility] Last Admin: 11/10/17 09:24 Dose: 10 mg Digoxin (Lanoxin) 0.125 mg PO DAILY@1800 [facility] Last Admin: 11/10/17 17:41 Dose: 0.125 mg Insulin Aspart (Novolog) [address] [facility] PRN Reason: Protocol Last Admin: 11/10/17 17:19 Dose: Not Given Lidocaine (Lidoderm) [address] [facility] Last Admin: 11/10/17 09:24 Dose: 2 ea Metformin HCl (Glucophage) [address] [facility] Last Admin: 11/10/17 17:40 Dose: 500 mg Metoprolol Succinate (Toprol Xl) 12.[address] [facility] Last Admin: 11/10/17 17:41 Dose: 12.5 mg Morphine Sulfate (Morphine) 2 mg IVP Q4 PRN PRN Reason: Pain, moderate (4-7) Last Admin: 11/10/17 01:16 Dose: 2 mg Pantoprazole Sodium (Protonix Ec Tab) [address] [facility] Last Admin: 11/10/17 09:24 Dose: 40 mg Rosuvastatin Calcium (Crestor) [address] [facility] Last Admin: 11/09/17 21:45 Dose: 10 mg Sitagliptin Phosphate (Januvia) [address] [facility] Last Admin: 11/10/17 09:24 Dose: 50 mg Sodium Chloride (Sodium Chloride Tab) [address] [facility] Last Admin: 11/10/17 17:41 Dose: 1 gm - Labs Labs: 11/10/17 08:02 11/10/17 08:02 PT 12.4 SECONDS (9.7-12.2) H D 11/09/17 06:20 INR 1.1 D 11/09/17 06:20 APTT 38 SECONDS (21-34) H 11/07/17 14:47 - Constitutional Appears: Well - Head Exam Head Exam: ATRAUMATIC, NORMAL INSPECTION, NORMOCEPHALIC - Eye Exam Eye Exam: EOMI, Normal appearance, PERRL Pupil Exam: NORMAL ACCOMODATION, PERRL - ENT Exam ENT Exam: Mucous Membranes Moist, Normal Exam - Neck Exam Neck Exam: Full ROM, Normal Inspection. absent: Lymphadenopathy - Respiratory Exam Respiratory Exam: Decreased Breath Sounds - Cardiovascular Exam Cardiovascular Exam: REGULAR RHYTHM, +S1, +S2 - GI/Abdominal Exam GI & Abdominal Exam: Soft, Diminished Bowel Sounds - Rectal Exam Rectal Exam: Deferred
--- NOTE | 2017-11-10 20:24 | CT ---
EXAM: CT Lumbar Spine Without Intravenous Contrast CLINICAL HISTORY: 81 years old, female; Pain; Low back pain; Additional info: Chronic back pain TECHNIQUE: Axial computed tomography images of the lumbar spine without intravenous contrast. All CT scans at this facility use one or more dose reduction techniques, viz.: automated exposure control; ma/kV adjustment per patient size (including targeted exams where dose is matched to indication; i.e. head); or iterative reconstruction technique. Coronal and sagittal reformatted images were created and reviewed. COMPARISON: CT - LUMBAR SPINE W/O CONTRAST 2017-10-01 18:04 FINDINGS: Vertebrae: Moderate to severe compression fracture T12, L2 vertebral bodies, chronic. Moderate compression fracture L4 vertebral body, chronic. Severe compression fracture L5 vertebral body, acute or subacute. Mild levoscoliosis. Facet osteoarthrosis. Sacrum/coccyx: Mildly displaced sacral fracture, acute or subacute. Discs/spinal canal/neural foramina: Mild degenerative disc disease throughout lumbar spine. Moderate indentation thecal sac/cord upper lumbar spine. Severe indentation thecal sac/cord mid lumbar spine. Severe indentation thecal sac/cord lower lumbar spine. Neuroforaminal narrowing within lower lumbar spine. Other bones/joints: Mild degenerative changes of sacroiliac joints. Soft tissues: Unremarkable. Vasculature: Extensive atherosclerotic disease. Lungs: Few calcified granulomas. Mild atelectasis/scarring. Kidneys and ureters: Lobulation/scarring of kidneys. Few small vascular calcifications vs calculi within left kidney. Stomach and bowel: Moderate to large stool within rectum. Colonic diverticula. Bladder: Bladder distention. Reproductive: Hysterectomy. IMPRESSION: 1. L5 compression fracture, acute or subacute. 2. Sacral fracture, acute or subacute. 3. Incidental/non-acute findings are described above.
[2017-11-11] MEDS: (Novolog) Insulin Aspart, Recombinant 100 u/ml 10 ml vial SC SCH ×4 (08:06→21:48)
[2017-11-11] MEDS: Lidocaine 5% Patch TD SCH (10:04)
[2017-11-11] MEDS: Pantoprazole 40 mg EC Tab PO SCH (10:05)
[2017-11-11] MEDS: Metoprolol Succinate 12.5 mg XL PO SCH ×2 (10:05→17:30)
[2017-11-11] MEDS ORDERED: Triamcinolone Acetonide 40 mg/mL Inj ONE (11:23)
[2017-11-11] MEDS ORDERED: Bupivacaine HCl 0.25% PF (10 ml) Inj ONE ×2 (11:23)
[2017-11-11] MEDS ORDERED: MethylPREDNISolone Depo 40 mg/ml Inj ONE (11:23)
[2017-11-11] MEDS ORDERED: Lidocaine 1% Inj (20ml) ONE (11:24)
[2017-11-11] MEDS ORDERED: Iohexol 240 (50 ml) ONE (11:24)
--- NOTE | 2017-11-11 11:46 | CP.PCM.PN ---
Subjective - Date & Time of Evaluation Date of Evaluation: 11/11/17 Time of Evaluation: 11:45 - Subjective Subjective: back pains & pains all over.for epidural. Objective - Vital Signs/Intake and Output Vital Signs (last 24 hours): Temp Pulse Resp BP Pulse Ox 98.1 F 98 H 20 135/70 98 11/11/17 08:36 11/11/17 08:36 11/11/17 08:36 11/11/17 08:36 11/11/17 08:36 - Medications Medications: Current Medications Cyclobenzaprine HCl (Flexeril) 10 mg PO DAILY [facility] Last Admin: 11/11/17 10:04 Dose: Not Given Digoxin (Lanoxin) 0.125 mg PO DAILY@1800 [facility] Last Admin: 11/10/17 17:41 Dose: 0.125 mg Insulin Aspart (Novolog) 0 unit SC ACHS [facility] PRN Reason: Protocol Last Admin: 11/11/17 08:06 Dose: Not Given Lactulose (Enulose) 20 gm PO HS [facility] Last Admin: 11/10/17 22:31 Dose: 20 gm Lidocaine (Lidoderm) 2 ea TD DAILY [facility] Last Admin: 11/11/17 10:04 Dose: Not Given Metformin HCl (Glucophage) 500 mg PO BID [facility] Last Admin: 11/11/17 10:04 Dose: Not Given Metoprolol Succinate (Toprol Xl) 12.5 mg PO BID [facility] Last Admin: 11/11/17 10:05 Dose: Not Given Morphine Sulfate (Morphine) 1 mg IVP Q4 PRN PRN Reason: Pain, moderate (4-7) Morphine Sulfate (Morphine) 1 mg IVP Q10M PRN PRN Reason: Pain, moderate (4-7) Stop: 11/11/17 13:09 Pantoprazole Sodium (Protonix Ec Tab) 40 mg PO DAILY [facility] Last Admin: 11/11/17 10:05 Dose: Not Given Rosuvastatin Calcium (Crestor) 10 mg PO HS [facility] Last Admin: 11/10/17 21:26 Dose: 10 mg Sitagliptin Phosphate (Januvia) 50 mg PO DAILY [facility] Last Admin: 11/11/17 10:04 Dose: Not Given Sodium Chloride (Sodium Chloride Tab) 1 gm PO BID [facility] Last Admin: 11/11/17 10:05 Dose: Not Given - Labs Labs: 11/10/17 08:02 11/10/17 08:02 PT 12.4 SECONDS (9.7-12.2) H D 11/09/17 06:20 INR 1.1 D 11/09/17 06:20 APTT 38 SECONDS (21-34) H 11/07/17 14:47 - Constitutional Appears: Chronically Ill - Head Exam Head Exam: NORMOCEPHALIC - Respiratory Exam Respiratory Exam: Clear to Ausculation Bilateral - Cardiovascular Exam Cardiovascular Exam: Irregular Rhythm, Murmur - GI/Abdominal Exam GI & Abdominal Exam: Soft - Extremities Exam Extremities Exam: absent: Pedal Edema - Neurological Exam Neurological Exam: Alert, Oriented x3 Assessment and Plan - Assessment and Plan (Free Text) Assessment: a,fib,chf both controlled.
[2017-11-11] MEDS ORDERED: Lactated Ringer's 1,000 ML IV ONE (12:00)
[2017-11-11] MEDS: Digoxin 125 mcg (0.125 mg) Tab PO SCH (17:28)
--- NOTE | 2017-11-11 17:55 | CP.PCM.PN ---
Subjective - Date & Time of Evaluation Date of Evaluation: 11/11/17 Time of Evaluation: 12:40 - Subjective Subjective: clinically same Objective - Vital Signs/Intake and Output Vital Signs (last 24 hours): Temp Pulse Resp BP Pulse Ox 98.1 F 110 H 20 151/79 H 100 11/11/17 15:00 11/11/17 16:26 11/11/17 15:00 11/11/17 15:00 11/11/17 15:00 Intake and Output: 11/11/17 11/11/17 06:59 18:59 Intake Total 120 Balance 120 - Medications Medications: Current Medications Cyclobenzaprine HCl (Flexeril) 10 mg PO DAILY [facility] Last Admin: 11/11/17 10:04 Dose: Not Given Digoxin (Lanoxin) 0.125 mg PO DAILY@1800 [facility] Last Admin: 11/11/17 17:28 Dose: 0.125 mg Insulin Aspart (Novolog) 0 unit SC ACHS [facility] PRN Reason: Protocol Last Admin: 11/11/17 17:30 Dose: Not Given Lactulose (Enulose) 20 gm PO HS [facility] Last Admin: 11/10/17 22:31 Dose: 20 gm Lidocaine (Lidoderm) 2 ea TD DAILY [facility] Last Admin: 11/11/17 10:04 Dose: Not Given Metformin HCl (Glucophage) 500 mg PO BID [facility] Last Admin: 11/11/17 17:29 Dose: 500 mg Metoprolol Succinate (Toprol Xl) 12.5 mg PO BID [facility] Last Admin: 11/11/17 17:30 Dose: 12.5 mg Morphine Sulfate (Morphine) 1 mg IVP Q4 PRN PRN Reason: Pain, moderate (4-7) Pantoprazole Sodium (Protonix Ec Tab) 40 mg PO DAILY [facility] Last Admin: 11/11/17 10:05 Dose: Not Given Rosuvastatin Calcium (Crestor) 10 mg PO HS [facility] Last Admin: 11/10/17 21:26 Dose: 10 mg Sitagliptin Phosphate (Januvia) 50 mg PO DAILY [facility] Last Admin: 11/11/17 10:04 Dose: Not Given Sodium Chloride (Sodium Chloride Tab) 1 gm PO BID [facility] Last Admin: 11/11/17 17:30 Dose: 1 gm - Labs Labs: 11/10/17 08:02 11/10/17 08:02 PT 12.4 SECONDS (9.7-12.2) H D 11/09/17 06:20 INR 1.1 D 11/09/17 06:20 APTT 38 SECONDS (21-34) H 11/07/17 14:47 - Constitutional Appears: Well - Head Exam Head Exam: ATRAUMATIC, NORMAL INSPECTION, NORMOCEPHALIC - Eye Exam Eye Exam: EOMI, Normal appearance, PERRL Pupil Exam: NORMAL ACCOMODATION, PERRL - ENT Exam ENT Exam: Mucous Membranes Moist, Normal Exam - Neck Exam Neck Exam: Full ROM, Normal Inspection. absent: Lymphadenopathy - Respiratory Exam Respiratory Exam: Decreased Breath Sounds - Cardiovascular Exam Cardiovascular Exam: REGULAR RHYTHM, +S1, +S2 - GI/Abdominal Exam GI & Abdominal Exam: Soft, Diminished Bowel Sounds - Rectal Exam Rectal Exam: Deferred Assessment and Plan (1) Fall at home Status: Acute (2) Generalized weakness Status: Acute (3) Hyponatremia Status: Acute (4) Chronic lower back pain Status: Acute (5) Right hip pain Status: Acute - Assessment and Plan (Free Text) Plan: Patient seen and discuss with the staff and the family at length more than 1 hour spent with the patient All the films reviewed with Dr. gan the pain management doctor who is going to give you outpatient epidural patient received epidural today patient is much much better patient at best patient is significantly reduced pain Patient may need a kyphoplasty Deborah Discussed with skills auditor Chip Blevins We will resume the Lovenox from tomorrow CBC CMP to check the sodium Continue same Management as ordered
[2017-11-12 06:56] LABS: BASO # 0.1 K/uL (0.0-0.2); BASO % 0.7 % (0.0-2.0); EOS # 0.1 K/uL (0.0-0.7); EOS % 0.9 % (0.0-4.0); HEMOGLOBIN 11.5 g/dL (11.0-16.0); LYMPH % 10.3 % (20.0-40.0); MEAN CELL VOLUME 80.7 fL (81.0-99.0); MEAN CORPUSCULAR HGB CONC 33.5 g/dL (33.0-37.0); MEAN PLATELET VOLUME 9.4 fL (7.2-11.7); MONO # 0.6 K/uL (0.0-0.8); MONO % 5.6 % (0.0-10.0); NEUT # 8.4 K/uL (1.8-7.0); NEUT % 82.5 % (50.0-75.0); RBC 4.26 Mil/uL (3.80-5.20); RED CELL DISTRIBUTION WIDTH 14.2 % (11.5-14.5); WHITE BLOOD COUNT 10.2 K/uL (4.8-10.8)
[2017-11-12 07:13] LABS: ALBUMIN 3.3 g/dL (3.5-5.0); ALT/SGPT 17 U/L (9-52); AST/SGOT 15 U/L (14-36); BLOOD UREA NITROGEN 11 mg/dL (7-17); CALCIUM 9.1 mg/dl (8.6-10.4); GFR AFRICAN-AMERICAN > 60; GFR NON-AFRICAN AMERICAN > 60; MAGNESIUM 1.6 mg/dL (1.6-2.3)
[2017-11-12] MEDS: (Novolog) Insulin Aspart, Recombinant 100 u/ml 10 ml vial SC SCH ×4 (08:46→22:00)
[2017-11-12] MEDS: Metoprolol Succinate 12.5 mg XL PO SCH ×2 (10:28→19:02)
[2017-11-12] MEDS: Lidocaine 5% Patch TD SCH (10:28)
[2017-11-12] MEDS: Pantoprazole 40 mg EC Tab PO SCH (10:28)
[2017-11-12] MEDS: Enoxaparin 40 mg Syringe SC SCH (10:31)
--- NOTE | 2017-11-12 14:53 | CP.PCM.PN ---
Subjective - Date & Time of Evaluation Date of Evaluation: 11/12/17 Time of Evaluation: 14:52 - Subjective Subjective: pains much less.s/p epidural. Objective - Vital Signs/Intake and Output Vital Signs (last 24 hours): Temp Pulse Resp BP Pulse Ox 97.9 F 112 H 18 135/72 98 11/12/17 08:57 11/12/17 08:57 11/12/17 08:57 11/12/17 08:57 11/12/17 08:57 Intake and Output: 11/12/17 11/12/17 06:59 18:59 Intake Total 600 Output Total 300 500 Balance -300 100 - Medications Medications: Current Medications Cyclobenzaprine HCl (Flexeril) 10 mg PO DAILY [facility] Last Admin: 11/12/17 10:28 Dose: 10 mg Digoxin (Lanoxin) 0.125 mg PO DAILY@1800 [facility] Last Admin: 11/11/17 17:28 Dose: 0.125 mg Enoxaparin Sodium (Lovenox) 40 mg SC DAILY [facility] Last Admin: 11/12/17 10:31 Dose: 40 mg Insulin Aspart (Novolog) 0 unit SC [facility] PRN Reason: Protocol Last Admin: 11/12/17 12:22 Dose: Not Given Lactulose (Enulose) 20 gm PO HS PRN PRN Reason: Constipation Lidocaine (Lidoderm) 2 ea TD DAILY [facility] Last Admin: 11/12/17 10:28 Dose: 2 ea Metformin HCl (Glucophage) 500 mg PO BID [facility] Last Admin: 11/12/17 10:28 Dose: 500 mg Metoprolol Succinate (Toprol Xl) 12.5 mg PO BID [facility] Last Admin: 11/12/17 10:28 Dose: 12.5 mg Morphine Sulfate (Morphine) 1 mg IVP Q4 PRN PRN Reason: Pain, moderate (4-7) Pantoprazole Sodium (Protonix Ec Tab) 40 mg PO DAILY [facility] Last Admin: 11/12/17 10:28 Dose: 40 mg Rosuvastatin Calcium (Crestor) 10 mg PO HS [facility] Last Admin: 11/11/17 21:46 Dose: 10 mg Sitagliptin Phosphate (Januvia) 50 mg PO DAILY [facility] Last Admin: 11/12/17 10:27 Dose: 50 mg Sodium Chloride (Sodium Chloride Tab) 1 gm PO BID [facility] Last Admin: 11/12/17 10:27 Dose: 1 gm - Labs Labs: 11/12/17 06:37 11/12/17 06:37 PT 12.4 SECONDS (9.7-12.2) H D 11/09/17 06:20 INR 1.1 D 11/09/17 06:20 APTT 38 SECONDS (21-34) H 11/07/17 14:47 - Constitutional Appears: Chronically Ill - Eye Exam Eye Exam: Normal appearance - Neck Exam Neck Exam: Normal Inspection - Respiratory Exam Respiratory Exam: Clear to Ausculation Bilateral - Cardiovascular Exam Cardiovascular Exam: Irregular Rhythm, Murmur - GI/Abdominal Exam GI & Abdominal Exam: Soft - Neurological Exam Neurological Exam: Alert, Oriented x3 Assessment and Plan - Assessment and Plan (Free Text) Assessment: a,fib.rate controlled.chf better.cpm
--- NOTE | 2017-11-12 16:35 | CP.PCM.PN ---
Subjective - Date & Time of Evaluation Date of Evaluation: 11/12/17 Time of Evaluation: 10:20 - Subjective Subjective: clinically same Objective - Vital Signs/Intake and Output Vital Signs (last 24 hours): Temp Pulse Resp BP Pulse Ox 97.9 F 112 H 18 135/72 98 11/12/17 08:57 11/12/17 08:57 11/12/17 08:57 11/12/17 08:57 11/12/17 08:57 Intake and Output: 11/12/17 11/12/17 06:59 18:59 Intake Total 600 Output Total 300 500 Balance -300 100 - Medications Medications: Current Medications Cyclobenzaprine HCl (Flexeril) 10 mg PO DAILY [facility] Last Admin: 11/12/17 10:28 Dose: 10 mg Digoxin (Lanoxin) 0.125 mg PO DAILY@1800 [facility] Last Admin: 11/11/17 17:28 Dose: 0.125 mg Enoxaparin Sodium (Lovenox) 40 mg SC DAILY [facility] Last Admin: 11/12/17 10:31 Dose: 40 mg Insulin Aspart (Novolog) 0 unit SC [facility] PRN Reason: Protocol Last Admin: 11/12/17 12:22 Dose: Not Given Lactulose (Enulose) 20 gm PO HS PRN PRN Reason: Constipation Lidocaine (Lidoderm) 2 ea TD DAILY [facility] Last Admin: 11/12/17 10:28 Dose: 2 ea Metformin HCl (Glucophage) 500 mg PO BID [facility] Last Admin: 11/12/17 10:28 Dose: 500 mg Metoprolol Succinate (Toprol Xl) 12.5 mg PO BID [facility] Last Admin: 11/12/17 10:28 Dose: 12.5 mg Morphine Sulfate (Morphine) 1 mg IVP Q4 PRN PRN Reason: Pain, moderate (4-7) Pantoprazole Sodium (Protonix Ec Tab) 40 mg PO DAILY [facility] Last Admin: 11/12/17 10:28 Dose: 40 mg Rosuvastatin Calcium (Crestor) 10 mg PO HS [facility] Last Admin: 11/11/17 21:46 Dose: 10 mg Sitagliptin Phosphate (Januvia) 50 mg PO DAILY [facility] Last Admin: 11/12/17 10:27 Dose: 50 mg Sodium Chloride (Sodium Chloride Tab) 1 gm PO BID [facility] Last Admin: 11/12/17 10:27 Dose: 1 gm - Labs Labs: 11/12/17 06:37 11/12/17 06:37 PT 12.4 SECONDS (9.7-12.2) H D 11/09/17 06:20 INR 1.1 D 11/09/17 06:20 APTT 38 SECONDS (21-34) H 11/07/17 14:47 - Constitutional Appears: Well - Head Exam Head Exam: ATRAUMATIC, NORMAL INSPECTION, NORMOCEPHALIC - Eye Exam Eye Exam: EOMI, Normal appearance, PERRL Pupil Exam: NORMAL ACCOMODATION, PERRL - ENT Exam ENT Exam: Mucous Membranes Moist, Normal Exam - Neck Exam Neck Exam: Full ROM, Normal Inspection. absent: Lymphadenopathy - Respiratory Exam Respiratory Exam: Decreased Breath Sounds - Cardiovascular Exam Cardiovascular Exam: REGULAR RHYTHM, +S1, +S2 - GI/Abdominal Exam GI & Abdominal Exam: Soft, Diminished Bowel Sounds - Rectal Exam Rectal Exam: Deferred Assessment and Plan (1) Fall at home Status: Acute (2) Generalized weakness Status: Acute (3) Hyponatremia Status: Acute (4) Chronic lower back pain Status: Acute (5) Right hip pain Status: Acute
[2017-11-12] MEDS: Digoxin 125 mcg (0.125 mg) Tab PO SCH (18:58)
[2017-11-13] MEDS: (Novolog) Insulin Aspart, Recombinant 100 u/ml 10 ml vial SC SCH ×4 (07:59→22:24)
[2017-11-13] MEDS: Pantoprazole 40 mg EC Tab PO SCH (10:27)
[2017-11-13] MEDS: Metoprolol Succinate 12.5 mg XL PO SCH ×2 (10:27→19:12)
[2017-11-13] MEDS: Enoxaparin 40 mg Syringe SC SCH (10:27)
[2017-11-13] MEDS: Lidocaine 5% Patch TD SCH (10:29)
--- NOTE | 2017-11-13 14:34 | CP.PCM.PN ---
Subjective - Date & Time of Evaluation Date of Evaluation: 11/13/17 Time of Evaluation: 11:00 - Subjective Subjective: clinically same Objective - Vital Signs/Intake and Output Vital Signs (last 24 hours): Temp Pulse Resp BP Pulse Ox 98.2 F 115 H 18 136/75 97 11/13/17 09:00 11/13/17 09:00 11/13/17 09:00 11/13/17 09:00 11/13/17 09:00 - Medications Medications: Current Medications Cyclobenzaprine HCl (Flexeril) 10 mg PO DAILY [facility] Last Admin: 11/13/17 10:27 Dose: 10 mg Digoxin (Lanoxin) 0.125 mg PO DAILY@1800 [facility] Last Admin: 11/12/17 18:58 Dose: 0.125 mg Enoxaparin Sodium (Lovenox) 40 mg SC DAILY [facility] Last Admin: 11/13/17 10:27 Dose: 40 mg Insulin Aspart (Novolog) 0 unit SC [facility] PRN Reason: Protocol Last Admin: 11/13/17 12:30 Dose: 1 unit Lactulose (Enulose) 20 gm PO HS PRN PRN Reason: Constipation Lidocaine (Lidoderm) 2 ea TD DAILY [facility] Last Admin: 11/13/17 10:29 Dose: 2 ea Metformin HCl (Glucophage) 500 mg PO BID [facility] Last Admin: 11/13/17 10:27 Dose: 500 mg Metoprolol Succinate (Toprol Xl) 12.5 mg PO BID [facility] Last Admin: 11/13/17 10:27 Dose: 12.5 mg Morphine Sulfate (Morphine) 1 mg IVP Q4 PRN PRN Reason: Pain, moderate (4-7) Pantoprazole Sodium (Protonix Ec Tab) 40 mg PO DAILY [facility] Last Admin: 11/13/17 10:27 Dose: 40 mg Rosuvastatin Calcium (Crestor) 10 mg PO HS [facility] Last Admin: 11/12/17 21:47 Dose: 10 mg Sitagliptin Phosphate (Januvia) 50 mg PO DAILY [facility] Last Admin: 11/13/17 10:27 Dose: 50 mg Sodium Chloride (Sodium Chloride Tab) 1 gm PO BID [facility] Last Admin: 11/13/17 10:27 Dose: 1 gm - Labs Labs: 11/12/17 06:37 11/12/17 06:37 PT 12.4 SECONDS (9.7-12.2) H D 11/09/17 06:20 INR 1.1 D 11/09/17 06:20 APTT 38 SECONDS (21-34) H 11/07/17 14:47 - Constitutional Appears: Well - Head Exam Head Exam: ATRAUMATIC, NORMAL INSPECTION, NORMOCEPHALIC - Eye Exam Eye Exam: EOMI, Normal appearance, PERRL Pupil Exam: NORMAL ACCOMODATION, PERRL - ENT Exam ENT Exam: Mucous Membranes Moist, Normal Exam - Neck Exam Neck Exam: Full ROM, Normal Inspection. absent: Lymphadenopathy - Respiratory Exam Respiratory Exam: Decreased Breath Sounds - Cardiovascular Exam Cardiovascular Exam: REGULAR RHYTHM, +S1, +S2 - GI/Abdominal Exam GI & Abdominal Exam: Soft, Diminished Bowel Sounds - Rectal Exam Rectal Exam: Deferred Assessment and Plan (1) Fall at home Status: Acute (2) Generalized weakness Status: Acute (3) Hyponatremia Status: Acute (4) Chronic lower back pain Status: Acute (5) Right hip pain Status: Acute
[2017-11-13] MEDS: Digoxin 125 mcg (0.125 mg) Tab PO SCH (19:10)
[2017-11-14] MEDS: (Novolog) Insulin Aspart, Recombinant 100 u/ml 10 ml vial SC SCH ×4 (07:48→21:37)
[2017-11-14] MEDS: Pantoprazole 40 mg EC Tab PO SCH (10:15)
[2017-11-14] MEDS: Metoprolol Succinate 12.5 mg XL PO SCH ×2 (10:15→17:50)
[2017-11-14] MEDS: Enoxaparin 40 mg Syringe SC SCH (10:15)
[2017-11-14] MEDS: Lidocaine 5% Patch TD SCH (12:19)
--- NOTE | 2017-11-14 13:21 | CP.PCM.PN ---
Subjective - Date & Time of Evaluation Date of Evaluation: 11/14/17 Time of Evaluation: 13:20 - Subjective Subjective: much better with pains. Objective - Vital Signs/Intake and Output Vital Signs (last 24 hours): Temp Pulse Resp BP Pulse Ox 97.0 F L 114 H 20 161/95 H 96 11/14/17 08:20 11/14/17 12:00 11/14/17 08:20 11/14/17 10:14 11/14/17 08:20 - Medications Medications: Current Medications Cyclobenzaprine HCl (Flexeril) 10 mg PO DAILY [facility] Last Admin: 11/14/17 10:15 Dose: 10 mg Digoxin (Lanoxin) 0.125 mg PO DAILY@1800 [facility] Last Admin: 11/13/17 19:10 Dose: 0.125 mg Enoxaparin Sodium (Lovenox) 40 mg SC DAILY [facility] Last Admin: 11/14/17 10:15 Dose: 40 mg Insulin Aspart (Novolog) 0 unit SC [facility] PRN Reason: Protocol Last Admin: 11/14/17 11:34 Dose: Not Given Lactulose (Enulose) 20 gm PO HS PRN PRN Reason: Constipation Lidocaine (Lidoderm) 2 ea TD DAILY [facility] Last Admin: 11/14/17 12:19 Dose: 2 ea Metformin HCl (Glucophage) 500 mg PO BID [facility] Last Admin: 11/14/17 10:15 Dose: 500 mg Metoprolol Succinate (Toprol Xl) 12.5 mg PO BID [facility] Last Admin: 11/14/17 10:15 Dose: 12.5 mg Morphine Sulfate (Morphine) 1 mg IVP Q4 PRN PRN Reason: Pain, moderate (4-7) Pantoprazole Sodium (Protonix Ec Tab) 40 mg PO DAILY [facility] Last Admin: 11/14/17 10:15 Dose: 40 mg Rosuvastatin Calcium (Crestor) 10 mg PO HS [facility] Last Admin: 11/13/17 22:29 Dose: 10 mg Sitagliptin Phosphate (Januvia) 50 mg PO DAILY [facility] Last Admin: 11/14/17 10:15 Dose: 50 mg Sodium Chloride (Sodium Chloride Tab) 1 gm PO BID [facility] Last Admin: 11/14/17 10:15 Dose: 1 gm - Labs Labs: 11/12/17 06:37 11/12/17 06:37 PT 12.4 SECONDS (9.7-12.2) H D 11/09/17 06:20 INR 1.1 D 11/09/17 06:20 APTT 38 SECONDS (21-34) H 11/07/17 14:47 - Constitutional Appears: No Acute Distress, Chronically Ill - Head Exam Head Exam: NORMOCEPHALIC - Neck Exam Neck Exam: Normal Inspection - Respiratory Exam Respiratory Exam: Clear to Ausculation Bilateral - Cardiovascular Exam Cardiovascular Exam: Irregular Rhythm - GI/Abdominal Exam GI & Abdominal Exam: Soft - Extremities Exam Extremities Exam: absent: Pedal Edema - Neurological Exam Neurological Exam: Alert, Oriented x3 Assessment and Plan - Assessment and Plan (Free Text) Assessment: a,fib.chf.stable overall.if needs or cleared at high risk.ct mediical rx pre op.
[2017-11-14] MEDS: Digoxin 125 mcg (0.125 mg) Tab PO SCH (17:50)
--- NOTE | 2017-11-14 19:32 | CP.PCM.PN ---
Subjective - Date & Time of Evaluation Date of Evaluation: 11/14/17 Time of Evaluation: 09:40 - Subjective Subjective: clinically same Objective - Vital Signs/Intake and Output Vital Signs (last 24 hours): Temp Pulse Resp BP Pulse Ox 97.2 F L 94 H 20 133/84 98 11/14/17 16:00 11/14/17 16:00 11/14/17 16:00 11/14/17 16:00 11/14/17 16:00 Intake and Output: 11/14/17 11/15/17 18:59 06:59 Intake Total 300 Balance 300 - Medications Medications: Current Medications Cyclobenzaprine HCl (Flexeril) 10 mg PO DAILY [facility] Last Admin: 11/14/17 10:15 Dose: 10 mg Digoxin (Lanoxin) 0.125 mg PO DAILY@1800 [facility] Last Admin: 11/14/17 17:50 Dose: 0.125 mg Enoxaparin Sodium (Lovenox) 40 mg SC DAILY [facility] Last Admin: 11/14/17 10:15 Dose: 40 mg Insulin Aspart (Novolog) 0 unit SC [facility] PRN Reason: Protocol Last Admin: 11/14/17 16:52 Dose: Not Given Lactulose (Enulose) 20 gm PO HS PRN PRN Reason: Constipation Lidocaine (Lidoderm) 2 ea TD DAILY [facility] Last Admin: 11/14/17 12:19 Dose: 2 ea Metformin HCl (Glucophage) 500 mg PO BID [facility] Last Admin: 11/14/17 17:52 Dose: Not Given Metoprolol Succinate (Toprol Xl) 12.5 mg PO BID [facility] Last Admin: 11/14/17 17:50 Dose: 12.5 mg Morphine Sulfate (Morphine) 1 mg IVP Q4 PRN PRN Reason: Pain, moderate (4-7) Pantoprazole Sodium (Protonix Ec Tab) 40 mg PO DAILY [facility] Last Admin: 11/14/17 10:15 Dose: 40 mg Rosuvastatin Calcium (Crestor) 10 mg PO HS [facility] Last Admin: 11/13/17 22:29 Dose: 10 mg Sitagliptin Phosphate (Januvia) 50 mg PO DAILY [facility] Last Admin: 11/14/17 10:15 Dose: 50 mg Sodium Chloride (Sodium Chloride Tab) 1 gm PO BID [facility] Last Admin: 11/14/17 17:51 Dose: 1 gm - Labs Labs: 11/12/17 06:37 02/10/18 06:37 PT 12.4 SECONDS (9.7-12.2) H D 11/09/17 06:20 INR 1.1 D 11/09/17 06:20 APTT 38 SECONDS (21-34) H 11/07/17 14:47 Assessment and Plan (1) Fall at home Status: Acute (2) Generalized weakness Status: Acute (3) Hyponatremia Status: Acute (4) Chronic lower back pain Status: Acute (5) Right hip pain Status: Acute
[2017-11-15 07:03] LABS: ALBUMIN 3.4 g/dL (3.5-5.0); ALT/SGPT 17 U/L (9-52); AST/SGOT 14 U/L (14-36); BLOOD UREA NITROGEN 16 mg/dL (7-17); CALCIUM 9.3 mg/dl (8.6-10.4); GFR AFRICAN-AMERICAN > 60; GFR NON-AFRICAN AMERICAN > 60
[2017-11-15 07:20] LABS: BASO # 0.1 K/uL (0.0-0.2); BASO % 1.4 % (0.0-2.0); EOS # 0.4 K/uL (0.0-0.7); EOS % 4.9 % (0.0-4.0); HEMOGLOBIN 12.3 g/dL (11.0-16.0); LYMPH # 1.4 K/uL (1.0-4.3); LYMPH % 16.2 % (20.0-40.0); MEAN CELL VOLUME 80.3 fL (81.0-99.0); MEAN CORPUSCULAR HEMOGLOBIN 27.2 pg (27.0-31.0); MEAN CORPUSCULAR HGB CONC 33.9 g/dL (33.0-37.0); MEAN PLATELET VOLUME 8.9 fL (7.2-11.7); MONO # 0.6 K/uL (0.0-0.8); MONO % 6.9 % (0.0-10.0); NEUT # 6.2 K/uL (1.8-7.0); NEUT % 70.6 % (50.0-75.0); NRBC % 0.1 % (0.0-2.0); RBC 4.52 Mil/uL (3.80-5.20); RED CELL DISTRIBUTION WIDTH 14.1 % (11.5-14.5); WHITE BLOOD COUNT 8.8 K/uL (4.8-10.8)
[2017-11-15] MEDS: (Novolog) Insulin Aspart, Recombinant 100 u/ml 10 ml vial SC SCH ×4 (07:35→22:01)
[2017-11-15] MEDS: Pantoprazole 40 mg EC Tab PO SCH (10:06)
[2017-11-15] MEDS: Metoprolol Succinate 12.5 mg XL PO SCH ×2 (10:07→18:01)
[2017-11-15] MEDS: Enoxaparin 40 mg Syringe SC SCH (10:07)
[2017-11-15] MEDS: Lidocaine 5% Patch TD SCH (10:08)
--- NOTE | 2017-11-15 13:43 | CP.PCM.PN ---
Subjective - Date & Time of Evaluation Date of Evaluation: 11/15/17 Time of Evaluation: 13:41 - Subjective Subjective: pains are better.not going for or/. Objective - Vital Signs/Intake and Output Vital Signs (last 24 hours): Temp Pulse Resp BP Pulse Ox 98.8 F 101 H 20 132/84 100 11/15/17 08:11 11/15/17 10:06 11/15/17 08:11 11/15/17 10:06 11/15/17 08:11 Intake and Output: 11/15/17 11/15/17 06:59 18:59 Intake Total 600 Balance 600 - Medications Medications: Current Medications Acetaminophen (Tylenol 325mg Tab) 650 mg PO Q6 PRN PRN Reason: Pain, Mild (1-3) Cyclobenzaprine HCl (Flexeril) 10 mg PO DAILY [facility] Last Admin: 11/15/17 10:07 Dose: 10 mg Digoxin (Lanoxin) 0.125 mg PO DAILY@1800 [facility] Last Admin: 11/14/17 17:50 Dose: 0.125 mg Enoxaparin Sodium (Lovenox) 40 mg SC DAILY [facility] Last Admin: 11/15/17 10:07 Dose: 40 mg Insulin Aspart (Novolog) 0 unit SC ACHS [facility] PRN Reason: Protocol Last Admin: 11/15/17 11:59 Dose: 1 unit Lactulose (Enulose) 20 gm PO HS PRN PRN Reason: Constipation Lidocaine (Lidoderm) 2 ea TD DAILY [facility] Last Admin: 11/15/17 10:08 Dose: 2 ea Metformin HCl (Glucophage) 500 mg PO BID [facility] Last Admin: 11/15/17 10:07 Dose: 500 mg Metoprolol Succinate (Toprol Xl) 12.5 mg PO BID [facility] Last Admin: 11/15/17 10:07 Dose: 12.5 mg Morphine Sulfate (Morphine) 1 mg IVP Q4 PRN PRN Reason: Pain, moderate (4-7) Pantoprazole Sodium (Protonix Ec Tab) 40 mg PO DAILY [facility] Last Admin: 11/15/17 10:06 Dose: 40 mg Rosuvastatin Calcium (Crestor) 10 mg PO HS [facility] Last Admin: 11/14/17 21:14 Dose: 10 mg Sitagliptin Phosphate (Januvia) 50 mg PO DAILY [facility] Last Admin: 11/15/17 10:07 Dose: 50 mg Sodium Chloride (Sodium Chloride Tab) 1 gm PO BID [facility] Last Admin: 11/15/17 10:06 Dose: 1 gm - Labs Labs: 11/15/17 06:45 11/15/17 06:45 PT 12.4 SECONDS (9.7-12.2) H D 11/09/17 06:20 INR 1.1 D 11/09/17 06:20 APTT 38 SECONDS (21-34) H 11/07/17 14:47 - Constitutional Appears: No Acute Distress, Chronically Ill - Head Exam Head Exam: NORMOCEPHALIC - ENT Exam ENT Exam: Normal Exam - Respiratory Exam Respiratory Exam: Clear to Ausculation Bilateral - Cardiovascular Exam Cardiovascular Exam: Irregular Rhythm - GI/Abdominal Exam GI & Abdominal Exam: Soft - Neurological Exam Neurological Exam: Alert, Oriented x3 Assessment and Plan - Assessment and Plan (Free Text) Assessment: a,fib,controlled.chf stable. ct medical rx., will sign off. thanks
--- NOTE | 2017-11-15 14:49 | RAD ---
PROCEDURE: Intraoperative Fluoroscopy. HISTORY: LUMBAR RADICULOPATHY FINDINGS: Fluoroscopic assistance was provided Total fluoroscopic time (continuous mode) utilized during the procedure: 18.3 seconds. Please refer to the operative report from MAXINE Burns, , MD JACQUI.
--- NOTE | 2017-11-15 16:53 | CP.PCM.PN ---
Subjective - Date & Time of Evaluation Date of Evaluation: 11/15/17 Time of Evaluation: 09:40 - Subjective Subjective: clinically same Objective - Vital Signs/Intake and Output Vital Signs (last 24 hours): Temp Pulse Resp BP Pulse Ox 97.7 F 102 H 20 135/87 100 11/15/17 15:00 11/15/17 16:00 11/15/17 15:00 11/15/17 15:00 11/15/17 15:00 Intake and Output: 11/15/17 11/15/17 06:59 18:59 Intake Total 600 300 Balance 600 300 - Medications Medications: Current Medications Acetaminophen (Tylenol 325mg Tab) 650 mg PO Q6 PRN PRN Reason: Pain, Mild (1-3) Cyclobenzaprine HCl (Flexeril) 10 mg PO DAILY [facility] Last Admin: 11/15/17 10:07 Dose: 10 mg Digoxin (Lanoxin) 0.125 mg PO DAILY@1800 [facility] Last Admin: 11/14/17 17:50 Dose: 0.125 mg Enoxaparin Sodium (Lovenox) 40 mg SC DAILY [facility] Last Admin: 11/15/17 10:07 Dose: 40 mg Insulin Aspart (Novolog) 0 unit SC ACHS [facility] PRN Reason: Protocol Last Admin: 11/15/17 11:59 Dose: 1 unit Lactulose (Enulose) 20 gm PO HS PRN PRN Reason: Constipation Lidocaine (Lidoderm) 2 ea TD DAILY [facility] Last Admin: 11/15/17 10:08 Dose: 2 ea Metformin HCl (Glucophage) 500 mg PO BID [facility] Last Admin: 11/15/17 10:07 Dose: 500 mg Metoprolol Succinate (Toprol Xl) 12.5 mg PO BID [facility] Last Admin: 11/15/17 10:07 Dose: 12.5 mg Morphine Sulfate (Morphine) 1 mg IVP Q4 PRN PRN Reason: Pain, moderate (4-7) Pantoprazole Sodium (Protonix Ec Tab) 40 mg PO DAILY [facility] Last Admin: 11/15/17 10:06 Dose: 40 mg Rosuvastatin Calcium (Crestor) 10 mg PO HS [facility] Last Admin: 11/14/17 21:14 Dose: 10 mg Sitagliptin Phosphate (Januvia) 50 mg PO DAILY [facility] Last Admin: 11/15/17 10:07 Dose: 50 mg Sodium Chloride (Sodium Chloride Tab) 1 gm PO BID [facility] Last Admin: 11/15/17 10:06 Dose: 1 gm - Labs Labs: 11/15/17 06:45 11/15/17 06:45 PT 12.4 SECONDS (9.7-12.2) H D 11/09/17 06:20 INR 1.1 D 11/09/17 06:20 APTT 38 SECONDS (21-34) H 11/07/17 14:47 - Constitutional Appears: Well - Head Exam Head Exam: ATRAUMATIC, NORMAL INSPECTION, NORMOCEPHALIC - Eye Exam Eye Exam: EOMI, Normal appearance, PERRL Pupil Exam: NORMAL ACCOMODATION, PERRL - ENT Exam ENT Exam: Mucous Membranes Moist, Normal Exam - Neck Exam Neck Exam: Full ROM, Normal Inspection. absent: Lymphadenopathy - Respiratory Exam Respiratory Exam: Decreased Breath Sounds - Cardiovascular Exam Cardiovascular Exam: REGULAR RHYTHM, +S1, +S2 - GI/Abdominal Exam GI & Abdominal Exam: Soft, Diminished Bowel Sounds - Rectal Exam Rectal Exam: Deferred Assessment and Plan (1) Fall at home Status: Acute (2) Generalized weakness Status: Acute (3) Hyponatremia Status: Acute (4) Chronic lower back pain Status: Acute (5) Right hip pain Status: Acute
[2017-11-15] MEDS: Digoxin 125 mcg (0.125 mg) Tab PO SCH (18:01)
--- NOTE | 2017-11-16 07:02 | CON ---
DATE: HISTORY OF PRESENT ILLNESS: This is an 81-year-old lady admitted to the hospital for various reasons, started to have some low back pain. CT was performed of the thoracolumbar spine, which showed multiple chronic compression fractures at various degrees including a probably new one at the L5-1 level. PAST MEDICAL HISTORY, MEDICATIONS, ALLERGIES: Reviewed in the chart. Speaking with her today, she really report almost no pain. She is actually sitting upright in the chair. No discomfort. I interviewed her with an hose turner. PHYSICAL EXAMINATION: She does demonstrate 5/5 strength in the lower extremities. Sensory exam is grossly intact. She really has minimal with any pain to palpation along the thoracolumbar spine. CT again shows multiple various compression fractures at L5, probably is an acute to subacute fracture, but there is no significant instability or canal compromise. IMPRESSION AND PLAN: The patient really did not have any pain. I would not even recommend a TLSO brace. I would recommend mobilizing her and physiotherapy. If and only if she has severe incapacitating pain upon ambulation, would I order a TLSO brace. Blane Santiago MD
[2017-11-16] MEDS ORDERED: Lidocaine Hydrochloride 5 ML INJ ONE (07:23)
[2017-11-16] MEDS ORDERED: Iohexol 240 (50 ml) ONE (07:23)
[2017-11-16] MEDS ORDERED: Propofol 10 mg/ml Inj (20 ML) ONE (07:41)
[2017-11-16] MEDS: (Novolog) Insulin Aspart, Recombinant 100 u/ml 10 ml vial SC SCH ×3 (07:44→21:47)
[2017-11-16] MEDS: Bupivacaine HCl 0.25% PF (10 ml) Inj ONE ×2 (08:05→08:12)
[2017-11-16] MEDS: MethylPREDNISolone Depo 40 mg/ml Inj ONE ×2 (08:05→08:12)
[2017-11-16] MEDS ORDERED: Labetalol 25mg/5ml Syringe ONE (08:09)
[2017-11-16] MEDS: Metoprolol Succinate 12.5 mg XL PO SCH ×2 (10:18→20:40)
[2017-11-16] MEDS: Pantoprazole 40 mg EC Tab PO SCH (10:19)
[2017-11-16] MEDS: Lidocaine 5% Patch TD SCH (10:19)
--- NOTE | 2017-11-16 13:05 | OP ---
PROCEDURE DATE: 11/11/2017. PREOPERATIVE DIAGNOSIS: Lumbar radiculopathy. POSTOPERATIVE DIAGNOSIS: Lumbar radiculopathy. PROCEDURE: Lumber epidural steroid injection L4-L5. SURGEON: Eloise Suarez MD COMPLICATIONS: None. BLOOD LOSS: 1 mL. ANESTHESIA: Local MAC sedation. 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 PROCEDURE IN DETAIL: The patient was given informed consent with the patient's son. The patient was brought back to the operating room, placed in prone position. Routine monitors were applied. She was prepped and draped in sterile fashion. X-ray guidance was used to identify the L4-L5 interlaminar space. Skin was injected with lidocaine 1% 2 mL to anesthetize the overlying entry area. Subsequently, a Tuohy needle 18-gauge, 3.5 inch was entered into the L4-L5 interlaminar space. Loss of resistance technique was used to identify epidural space using air. IV contrast was injected 1 mL showing good epidurogram into the L4-L5 and L5-S1 interspace. Subsequently, 80 mg Depo-Medrol mixed with bupivacaine 0.25% total volume of 4 mL was injected with negative intermittent aspiration. No heme or CSF was aspirated throughout. No paresthesias were elicited throughout. The patient tolerated the procedure well. Vital signs remained stable. Epidurogram showed good sterile IV contrast dye into the L4-L5, L5-S1, and L3-L4 interspace showing some slight bulging at the L4-L5 disc as well as the L5-S1 disc. Foramens were patent but stenotic. DISPOSITION: Patient was brought back to the recovery room in stable condition. Was sent back to the floor and will be followed up later in few days. The patient may return for a repeat injection and lumbar medial branch blocks later next week. Eloise Suarez MD
--- NOTE | 2017-11-16 13:47 | RAD ---
PROCEDURE: Intraoperative Fluoroscopy. HISTORY: LUMBAR SPONDYLOSIS FINDINGS: Fluoroscopic assistance was provided for lumbar block. Please refer to the operative report from MIMA Cheng. Total fluoroscopic time (continuous mode) utilized during the procedure: 27.2 seconds. Submitted images from the current procedure: 4.0. Total exam DLP: 2.29 (mGy)
--- NOTE | 2017-11-16 18:35 | CP.PCM.PN ---
Subjective - Date & Time of Evaluation Date of Evaluation: 11/16/17 Time of Evaluation: 13:20 - Subjective Subjective: clinically same Objective - Vital Signs/Intake and Output Vital Signs (last 24 hours): Temp Pulse Resp BP Pulse Ox 97.8 F 88 21 124/72 100 11/16/17 15:16 11/16/17 15:16 11/16/17 15:16 11/16/17 15:16 11/16/17 15:16 Intake and Output: 11/16/17 11/16/17 06:59 18:59 Intake Total 400 205 Balance 400 205 - Medications Medications: Current Medications Acetaminophen (Tylenol 325mg Tab) 650 mg PO Q6 PRN PRN Reason: Pain, Mild (1-3) Cyclobenzaprine HCl (Flexeril) 10 mg PO DAILY [facility] Last Admin: 11/16/17 10:19 Dose: 10 mg Digoxin (Lanoxin) 0.125 mg PO DAILY@1800 [facility] Last Admin: 11/15/17 18:01 Dose: 0.125 mg Insulin Aspart (Novolog) 0 unit SC ACHS [facility] PRN Reason: Protocol Last Admin: 11/16/17 17:53 Dose: Not Given Lactulose (Enulose) 20 gm PO HS PRN PRN Reason: Constipation Lidocaine (Lidoderm) 2 ea TD DAILY [facility] Last Admin: 11/16/17 10:19 Dose: 2 ea Metformin HCl (Glucophage) 500 mg PO BID [facility] Last Admin: 11/16/17 10:19 Dose: 500 mg Metoprolol Succinate (Toprol Xl) 12.5 mg PO BID [facility] Last Admin: 11/16/17 10:18 Dose: 12.5 mg Morphine Sulfate (Morphine) 1 mg IVP Q4 PRN PRN Reason: Pain, moderate (4-7) Pantoprazole Sodium (Protonix Ec Tab) 40 mg PO DAILY [facility] Last Admin: 11/16/17 10:19 Dose: 40 mg Rosuvastatin Calcium (Crestor) 10 mg PO HS [facility] Last Admin: 11/15/17 21:06 Dose: 10 mg Sitagliptin Phosphate (Januvia) 50 mg PO DAILY [facility] Last Admin: 11/16/17 10:19 Dose: 50 mg Sodium Chloride (Sodium Chloride Tab) 1 gm PO BID [facility] Last Admin: 11/16/17 10:18 Dose: 1 gm - Labs Labs: 11/15/17 06:45 11/15/17 06:45 PT 12.4 SECONDS (9.7-12.2) H D 11/09/17 06:20 INR 1.1 D 11/09/17 06:20 APTT 38 SECONDS (21-34) H 11/07/17 14:47 - Constitutional Appears: Well - Head Exam Head Exam: ATRAUMATIC, NORMAL INSPECTION, NORMOCEPHALIC - Eye Exam Eye Exam: EOMI, Normal appearance, PERRL Pupil Exam: NORMAL ACCOMODATION, PERRL - ENT Exam ENT Exam: Mucous Membranes Moist, Normal Exam - Neck Exam Neck Exam: Full ROM, Normal Inspection. absent: Lymphadenopathy - Respiratory Exam Respiratory Exam: Decreased Breath Sounds - Cardiovascular Exam Cardiovascular Exam: REGULAR RHYTHM, +S1, +S2 - GI/Abdominal Exam GI & Abdominal Exam: Soft, Diminished Bowel Sounds - Rectal Exam Rectal Exam: Deferred Assessment and Plan (1) Fall at home Status: Acute (2) Generalized weakness Status: Acute (3) Hyponatremia Status: Acute (4) Chronic lower back pain Status: Acute (5) Right hip pain Status: Acute
[2017-11-16] MEDS ORDERED: Morphine 4 MG/ML VIAL IVP PRN (20:00)
[2017-11-16] MEDS: Digoxin 125 mcg (0.125 mg) Tab PO SCH (20:39)
--- NOTE | 2017-11-17 07:29 | OP ---
PROCEDURE DATE: 11/16/2017 PREOPERATIVE DIAGNOSES: 1. Lumbar spondylosis without myelopathy. 2. Myalgias. POSTOPERATIVE DIAGNOSES: 1. Lumbar spondylosis without myelopathy. 2. Myalgias. PROCEDURE: 1. Lumbar medial branch block T12-L1, L3-L4, L4-L5, L5-S1 bilateral. 2. Trigger point injections. X-RAY: [id number], fluoroscopy of the spine. ANESTHESIA: MAC/local. SURGEON: Eloise Suaerz MD COMPLICATIONS: None. BLOOD LOSS: 2 mL. INDICATION: On physical exam, this patient's pain was made worse by side bending toward the affected side or extending the spine (backward bending). The patient's back will generally feel stiff in the morning, and prolonged inactivity such as sitting, standing for prolonged periods causes the axial pain to refer to the mid lower back. This pain is intractable and unresponsive to conservative management. The pain is adversely affecting quality of life and activities of daily living. TECHNIQUE: After comprehensive informed consent was obtained, the risks of the procedure explained and questions answered. The patient was placed prone on the operating table in a comfortable position. Confirmation of the procedure to be performed was obtained from the patient. The skin overlying the area to be injected was confirmed and cleaned in a strict sterile fashion using chlorhexidine. Sterile drape was placed around the area to be injected. The area to be injected was superficially anesthetized with 1 mL of 1% lidocaine using a 27-gauge, 1.25-inch needle at each level noted above. Under fluoroscopic guidance, a curved 22-gauge, 3.5-inch spinal needle was advanced until the tip of the needle was ventro-medial to position the tip adjacent to the articular pillar, in contact with bone midway between the zygapophyseal joints above and below. The patient experienced no paresthesia during needle placement. The bone was contacted, and the C-arm was rotated laterally to confirm proper needle placement. The patient experienced no paresthesias in the upper extremities during needle placement. After negative aspiration for blood, 0.5 mL of non-ionic contrast was injected to outline the medial branch nerve. Then, 1 mL of a mixture of 0.25% Marcaine and 80 mg of Depo-Medrol was slowly injected at each level. The needle was removed, and a Band-Aid was placed over the puncture site. The fluoroscopic image was stored for the medical record. Trigger Point Injections: A 27-gauge needle was used to inject trigger point areas in paralumbar muscles, parathoracic muscles, and upper gluteal muscles. Needle was redirected to sciatic nerve branches. Total volume of 12 mL of 0.25% Marcaine mixed with 40 mg Kenalog. Intermittent aspiration was done throughout with no heme or CSF aspirated throughout. Patient tolerated procedure well. ASSESSMENT: Upon discharge, the patient noted more than 80% relief in the affected painful area. The patient was given a pain diary to utilize over the next 4 hours while performing activities that are normally aggravating. 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 The patient understands that this block is diagnostic and temporary. If there is significant pain relief during the next 4 hours, we will schedule for radiofrequency ablation of the offending pain fibers around the affected facet joints to help provide long-term relief. DISPOSITION: Patient was given instructions to follow up in two weeks and was discharged in stable condition. No events or complications. Eloise Suarez MD
[2017-11-17] MEDS: (Novolog) Insulin Aspart, Recombinant 100 u/ml 10 ml vial SC SCH ×3 (07:54→22:16)
[2017-11-17] MEDS: Pantoprazole 40 mg EC Tab PO SCH (09:37)
[2017-11-17] MEDS: Lidocaine 5% Patch TD SCH (09:38)
[2017-11-17] MEDS: Metoprolol Succinate 12.5 mg XL PO SCH ×2 (09:38→17:57)
--- NOTE | 2017-11-17 12:58 | CP.PCM.PN ---
Subjective - Date & Time of Evaluation Date of Evaluation: 11/17/17 Time of Evaluation: 13:13 - Subjective Subjective: PGY2 Medicine note for Dr. Terrie Stanley; all management as per Dr. Terrie Stanley patient seen and examined at bedside this AM; denies any complaints with son at bedside translating for her. she is ambulating with the PT staff during exam and was not having any problem walking around the unit with a walker. pain is well controlled. Denies all other symptoms. Objective - Vital Signs/Intake and Output Vital Signs (last 24 hours): Temp Pulse Resp BP Pulse Ox 97.3 F L 86 20 145/78 100 11/17/17 09:01 11/17/17 09:01 11/17/17 09:01 11/17/17 09:01 11/17/17 09:01 Intake and Output: 11/17/17 11/17/17 06:59 18:59 Intake Total 120 Balance 120 - Medications Medications: Current Medications Acetaminophen (Tylenol 325mg Tab) 650 mg PO Q6 PRN PRN Reason: Pain, Mild (1-3) Cyclobenzaprine HCl (Flexeril) 10 mg PO DAILY [facility] Last Admin: 11/17/17 09:37 Dose: 10 mg Digoxin (Lanoxin) 0.125 mg PO DAILY@1800 [facility] Last Admin: 11/16/17 20:39 Dose: 0.125 mg Insulin Aspart (Novolog) 0 unit SC ACHS [facility] PRN Reason: Protocol Last Admin: 11/17/17 07:54 Dose: Not Given Lactulose (Enulose) 20 gm PO HS PRN PRN Reason: Constipation Lidocaine (Lidoderm) 2 ea TD DAILY [facility] Last Admin: 11/17/17 09:38 Dose: 2 ea Metformin HCl (Glucophage) 500 mg PO BID [facility] Last Admin: 11/17/17 09:37 Dose: 500 mg Metoprolol Succinate (Toprol Xl) 12.5 mg PO BID [facility] Last Admin: 11/17/17 09:38 Dose: 12.5 mg Morphine Sulfate (Morphine) 1 mg IVP Q4 PRN PRN Reason: Pain, moderate (4-7) Pantoprazole Sodium (Protonix Ec Tab) 40 mg PO DAILY [facility] Last Admin: 11/17/17 09:37 Dose: 40 mg Rosuvastatin Calcium (Crestor) 10 mg PO HS [facility] Last Admin: 11/16/17 21:00 Dose: 10 mg Sitagliptin Phosphate (Januvia) 50 mg PO DAILY [facility] Last Admin: 11/17/17 09:37 Dose: 50 mg Sodium Chloride (Sodium Chloride Tab) 1 gm PO BID [facility] Last Admin: 11/17/17 09:38 Dose: 1 gm - Labs Labs: 11/15/17 06:45 11/15/17 06:45 PT 12.4 SECONDS (9.7-12.2) H D 11/09/17 06:20 INR 1.1 D 11/09/17 06:20 APTT 38 SECONDS (21-34) H 11/07/17 14:47 - Constitutional Appears: Non-toxic - Head Exam Head Exam: ATRAUMATIC - ENT Exam ENT Exam: Mucous Membranes Moist - Neck Exam Neck Exam: absent: Lymphadenopathy - Respiratory Exam Respiratory Exam: absent: Rales - GI/Abdominal Exam GI & Abdominal Exam: Soft - Extremities Exam Extremities Exam: Full ROM. absent: Calf Tenderness - Back Exam Back Exam: absent: CVA tenderness (L), CVA tenderness (R) - Neurological Exam Neurological Exam: Alert, Awake. absent: Normal Gait (patient walks with limited gait with walker but is able to ambulate around unit with assistance without much pain) - Psychiatric Exam Psychiatric exam: Normal Affect - Skin Skin Exam: Warm Assessment and Plan - Assessment and Plan (Free Text) Assessment: 81yo F here for fall with L5 subacute fracture L5 Subacute Fx -as per ortho; TLSO brace only recommended during the day if patient in significant amount of pain which she is not here -OOB as tolerated and frequent PT/OT to rehabilitate patient; patient was ambulating through 6T today with assistance doing well -pain control and non surgical management indicated at this time DM2 Chronic -c/w sitagliptin and RISS -accuchecks ACHS Chronic systolic HF -c/w digoxin and metoprolol -asymptomatic at this time and does not need any change in management Proph -lovenox protonix chronic constipation; on lactulose patient will likely need placement into [facility] for PT/PT for fracture healing all management as per Dr. Terrie Stanley
[2017-11-17 14:01] LABS: BASO # 0.1 K/uL (0.0-0.2); BASO % 0.8 % (0.0-2.0); EOS # 0.1 K/uL (0.0-0.7); HEMOGLOBIN 11.8 g/dL (11.0-16.0); LYMPH # 1.3 K/uL (1.0-4.3); LYMPH % 10.2 % (20.0-40.0); MEAN CELL VOLUME 81.2 fL (81.0-99.0); MEAN CORPUSCULAR HEMOGLOBIN 27.1 pg (27.0-31.0); MEAN CORPUSCULAR HGB CONC 33.4 g/dL (33.0-37.0); MEAN PLATELET VOLUME 8.8 fL (7.2-11.7); MONO # 0.6 K/uL (0.0-0.8); MONO % 5.1 % (0.0-10.0); NEUT # 10.2 K/uL (1.8-7.0); NEUT % 82.9 % (50.0-75.0); RBC 4.34 Mil/uL (3.80-5.20); RED CELL DISTRIBUTION WIDTH 14.2 % (11.5-14.5); WHITE BLOOD COUNT 12.3 K/uL (4.8-10.8)
[2017-11-17 14:27] LABS: ALB/GLOB RATIO 1.1 (1.0-2.1); ALBUMIN 3.5 g/dL (3.5-5.0); ALT/SGPT 10 U/L (9-52); AST/SGOT 17 U/L (14-36); BLOOD UREA NITROGEN 21 mg/dL (7-17); CALCIUM 9.4 mg/dl (8.6-10.4); GFR AFRICAN-AMERICAN > 60; GFR NON-AFRICAN AMERICAN > 60
[2017-11-17] MEDS: Digoxin 125 mcg (0.125 mg) Tab PO SCH (17:57)
[2017-11-18 02:54] VITALS: RESP 20
[2017-11-18 07:46] LABS: BASO # 0.1 K/uL (0.0-0.2); BASO % 1.3 % (0.0-2.0); EOS # 0.2 K/uL (0.0-0.7); EOS % 2.1 % (0.0-4.0); HEMOGLOBIN 11.8 g/dL (11.0-16.0); LYMPH # 1.4 K/uL (1.0-4.3); LYMPH % 13.9 % (20.0-40.0); MEAN CELL VOLUME 81.2 fL (81.0-99.0); MEAN CORPUSCULAR HEMOGLOBIN 27.3 pg (27.0-31.0); MEAN CORPUSCULAR HGB CONC 33.6 g/dL (33.0-37.0); MEAN PLATELET VOLUME 8.8 fL (7.2-11.7); MONO # 0.5 K/uL (0.0-0.8); MONO % 5.2 % (0.0-10.0); NEUT % 77.5 % (50.0-75.0); NRBC % 0.1 % (0.0-2.0); RBC 4.32 Mil/uL (3.80-5.20); RED CELL DISTRIBUTION WIDTH 14.4 % (11.5-14.5); WHITE BLOOD COUNT 10.3 K/uL (4.8-10.8)
[2017-11-18] MEDS: (Novolog) Insulin Aspart, Recombinant 100 u/ml 10 ml vial SC SCH ×2 (07:49→17:36)
[2017-11-18 08:17] LABS: ALB/GLOB RATIO 1.1 (1.0-2.1); ALBUMIN 3.4 g/dL (3.5-5.0); ALT/SGPT 15 U/L (9-52); AST/SGOT 32 U/L (14-36); BLOOD UREA NITROGEN 21 mg/dL (7-17); CALCIUM 9.3 mg/dl (8.6-10.4); GFR AFRICAN-AMERICAN > 60; GFR NON-AFRICAN AMERICAN > 60
--- NOTE | 2017-11-18 08:49 | CP.PCM.PN ---
Subjective - Date & Time of Evaluation Date of Evaluation: 11/18/17 Time of Evaluation: 07:23 - Subjective Subjective: PGY2 Medicine note for Dr. Terrie Stanley Patient seen and examined at bedside this AM; Reports she is feeling well. She ambulates with the PT staff is able to ambulate on the medical floor with a walker. She denies any f/c, pain, n/v, d/c, or any additional complaints. Objective - Vital Signs/Intake and Output Vital Signs (last 24 hours): Temp Pulse Resp BP Pulse Ox 98.1 F 95 H 20 135/85 96 11/18/17 08:40 11/18/17 08:40 11/18/17 08:40 11/18/17 08:40 11/18/17 08:40 Intake and Output: 11/18/17 11/18/17 06:59 18:59 Intake Total 120 Balance 120 - Medications Medications: Current Medications Acetaminophen (Tylenol 325mg Tab) 650 mg PO Q6 PRN PRN Reason: Pain, Mild (1-3) Cyclobenzaprine HCl (Flexeril) 10 mg PO DAILY [facility] Last Admin: 11/17/17 09:37 Dose: 10 mg Digoxin (Lanoxin) 0.125 mg PO DAILY@1800 [facility] Last Admin: 11/17/17 17:57 Dose: 0.125 mg Insulin Aspart (Novolog) 0 unit SC ACHS [facility] PRN Reason: Protocol Last Admin: 11/18/17 07:49 Dose: Not Given Lactulose (Enulose) 20 gm PO HS PRN PRN Reason: Constipation Lidocaine (Lidoderm) 2 ea TD DAILY [facility] Last Admin: 11/17/17 09:38 Dose: 2 ea Metformin HCl (Glucophage) 500 mg PO BID [facility] Last Admin: 11/17/17 17:57 Dose: 500 mg Metoprolol Succinate (Toprol Xl) 12.5 mg PO BID [facility] Last Admin: 11/17/17 17:57 Dose: 12.5 mg Morphine Sulfate (Morphine) 1 mg IVP Q4 PRN PRN Reason: Pain, moderate (4-7) Pantoprazole Sodium (Protonix Ec Tab) 40 mg PO DAILY [facility] Last Admin: 11/17/17 09:37 Dose: 40 mg Rosuvastatin Calcium (Crestor) 10 mg PO HS [facility] Last Admin: 11/17/17 22:16 Dose: Not Given Sitagliptin Phosphate (Januvia) 50 mg PO DAILY [facility] Last Admin: 11/17/17 09:37 Dose: 50 mg Sodium Chloride (Sodium Chloride Tab) 1 gm PO BID [facility] Last Admin: 11/17/17 17:57 Dose: 1 gm - Labs Labs: 11/18/17 07:04 11/18/17 07:04 PT 12.4 SECONDS (9.7-12.2) H D 11/09/17 06:20 INR 1.1 D 11/09/17 06:20 APTT 38 SECONDS (21-34) H 11/07/17 14:47 - Additional Findings Additional findings: - Constitutional Appears: Non-toxic - Head Exam Head Exam: ATRAUMATIC - ENT Exam ENT Exam: Mucous Membranes Moist - Neck Exam Neck Exam: absent: Lymphadenopathy - Respiratory Exam Respiratory Exam: absent: Rales - GI/Abdominal Exam GI & Abdominal Exam: Soft - Extremities Exam Extremities Exam: Full ROM. absent: Calf Tenderness - Back Exam Back Exam: absent: CVA tenderness (L), CVA tenderness (R) - wearing TLSO brace - Neurological Exam Neurological Exam: Alert, Awake. absent: Normal Gait (patient walks with limited gait with walker but is able to ambulate around unit with assistance without much pain) - Psychiatric Exam Psychiatric exam: Normal Affect - Skin Skin Exam: Warm Assessment and Plan - Assessment and Plan (Free Text) Assessment: 81yo F here for fall with L5 subacute fracture L5 Subacute Fx 11/18: PT recommends [facility]. -as per ortho; TLSO brace only recommended during the day if patient in significant amount of pain which she is not here -OOB as tolerated and frequent PT/OT to rehabilitate patient; patient was ambulating through 6T today with assistance doing well -pain control and non surgical management indicated at this time DM2 Chronic -c/w sitagliptin and RISS -accuchecks ACHS Chronic systolic HF -c/w digoxin and metoprolol -asymptomatic at this time and does not need any change in management Proph -lovenox protonix chronic constipation; on lactulose Disposition: patient will likely need placement into [facility] for PT/PT for fracture healing all management as per Dr. Terrie Stanley
[2017-11-18] MEDS: Lidocaine 5% Patch TD SCH (10:22)
[2017-11-18] MEDS: Pantoprazole 40 mg EC Tab PO SCH (10:22)
[2017-11-18 17:07] VITALS: BP 139/75; PULSE 104; TEMP 97.8; O2SAT 99
[2017-11-18] MEDS: Digoxin 125 mcg (0.125 mg) Tab PO SCH (17:35)
[2017-11-18] MEDS: Metoprolol Succinate 12.5 mg XL PO SCH (17:35)
[2017-11-18 17:36] VITALS: PULSE 104
--- NOTE | 2017-11-18 18:48 | CP.PCM.PN ---
Subjective - Date & Time of Evaluation Date of Evaluation: 11/18/17 Time of Evaluation: 11:20 - Subjective Subjective: clinically same Objective - Vital Signs/Intake and Output Vital Signs (last 24 hours): Temp Pulse Resp BP Pulse Ox 97.8 F 104 H 20 139/75 99 11/18/17 15:20 11/18/17 15:20 11/18/17 15:20 11/18/17 15:20 11/18/17 15:20 Intake and Output: 11/18/17 11/18/17 06:59 18:59 Intake Total 120 Balance 120 - Medications Medications: Current Medications Acetaminophen (Tylenol 325mg Tab) 650 mg PO Q6 PRN PRN Reason: Pain, Mild (1-3) Cyclobenzaprine HCl (Flexeril) 10 mg PO DAILY [facility] Last Admin: 11/18/17 10:22 Dose: 10 mg Digoxin (Lanoxin) 0.125 mg PO DAILY@1800 [facility] Last Admin: 11/18/17 17:35 Dose: 0.125 mg Insulin Aspart (Novolog) 0 unit SC ACHS [facility] PRN Reason: Protocol Last Admin: 11/18/17 17:36 Dose: Not Given Lactulose (Enulose) 20 gm PO HS PRN PRN Reason: Constipation Lidocaine (Lidoderm) 2 ea TD DAILY [facility] Last Admin: 11/18/17 10:22 Dose: 2 ea Metformin HCl (Glucophage) 500 mg PO BID [facility] Last Admin: 11/18/17 17:35 Dose: 500 mg Metoprolol Succinate (Toprol Xl) 12.5 mg PO BID [facility] Last Admin: 11/18/17 17:35 Dose: 12.5 mg Morphine Sulfate (Morphine) 1 mg IVP Q4 PRN PRN Reason: Pain, moderate (4-7) Pantoprazole Sodium (Protonix Ec Tab) 40 mg PO DAILY [facility] Last Admin: 11/18/17 10:22 Dose: 40 mg Rosuvastatin Calcium (Crestor) 10 mg PO HS [facility] Last Admin: 11/17/17 22:16 Dose: Not Given Sitagliptin Phosphate (Januvia) 50 mg PO DAILY [facility] Last Admin: 11/18/17 10:22 Dose: 50 mg Sodium Chloride (Sodium Chloride Tab) 1 gm PO BID [facility] Last Admin: 11/18/17 17:35 Dose: 1 gm - Labs Labs: 11/18/17 07:04 11/18/17 07:04 PT 12.4 SECONDS (9.7-12.2) H D 11/09/17 06:20 INR 1.1 D 11/09/17 06:20 APTT 38 SECONDS (21-34) H 11/07/17 14:47 - Constitutional Appears: Well - Head Exam Head Exam: ATRAUMATIC, NORMAL INSPECTION, NORMOCEPHALIC - Eye Exam Eye Exam: EOMI, Normal appearance, PERRL Pupil Exam: NORMAL ACCOMODATION, PERRL - ENT Exam ENT Exam: Mucous Membranes Moist, Normal Exam - Neck Exam Neck Exam: Full ROM, Normal Inspection. absent: Lymphadenopathy - Respiratory Exam Respiratory Exam: Decreased Breath Sounds - Cardiovascular Exam Cardiovascular Exam: REGULAR RHYTHM, +S1, +S2 - GI/Abdominal Exam GI & Abdominal Exam: Soft, Diminished Bowel Sounds - Rectal Exam Rectal Exam: Deferred Assessment and Plan (1) Fall at home Status: Acute (2) Generalized weakness Status: Acute (3) Hyponatremia Status: Acute (4) Chronic lower back pain Status: Acute (5) Right hip pain Status: Acute
== END 2017-11-18 20:22 | DRG 552 ==
LOC: C.ER 13:57 → C.9E 16:27 → C.6T 19:32
PROVIDERS: ADMIT Internal Medicine Nephrology; ATTEND Internal Medicine Nephrology
PROC: 3E0R3BZ Introduction of Anesthetic Agent into Spinal Canal, Percutaneous Approach (ICD-10-PCS; 2017-11-16)
PROC: 3E0233Z Introduction of Anti-inflammatory into Muscle, Percutaneous Approach (ICD-10-PCS; 2017-11-16)
PROC: 3E023BZ Introduction of Anesthetic Agent into Muscle, Percutaneous Approach (ICD-10-PCS; 2017-11-16)
PROC: 3E0R33Z Introduction of Anti-inflammatory into Spinal Canal, Percutaneous Approach (ICD-10-PCS; principal; 2017-11-16 07:45)
DX: S32.029A Unspecified fracture of second lumbar vertebra, initial encounter for closed fracture (principal); S22.089A Unspecified fracture of T11-T12 vertebra, initial encounter for closed fracture; I48.91 Unspecified atrial fibrillation; I50.22 Chronic systolic (congestive) heart failure; E87.1 Hypo-osmolality and hyponatremia; I11.0 Hypertensive heart disease with heart failure; M47.26 Other spondylosis with radiculopathy, lumbar region; M48.061 Spinal stenosis, lumbar region without neurogenic claudication; S40.011A Contusion of right shoulder, initial encounter; S43.401A Unspecified sprain of right shoulder joint, initial encounter; E11.9 Type 2 diabetes mellitus without complications; E78.00 Pure hypercholesterolemia, unspecified; G89.29 Other chronic pain; K59.09 Other constipation; M40.205 Unspecified kyphosis, thoracolumbar region; W19.XXXA Unspecified fall, initial encounter; Y92.009 Unspecified place in unspecified non-institutional (private) residence as the place of occurrence of the external cause; Z90.710 Acquired absence of both cervix and uterus

== ENCOUNTER 2018-11-03 18:12 | Inpatient (IN) | payer MEDICARE, OTHER ==
[2018-11-03 18:35] VITALS: BMI 29.2
--- NOTE | 2018-11-03 20:11 | C.PDOC ---
History Of Present Illness 82 year old female is brought to the ED for evaluation after a mechanical fall. Patient reports that while leaving her bathroom her walker swept under her and she fell forwards injuring her left shoulder, wrist and forehead. Patient reports she is currently taking eliquis. Patient denies LOC, headache, visual changes, symptoms previous to the fall, CP, SOB, nausea, vomit, weakness, numbness. - HPI Time Seen by Provider: 11/03/18 18:19 Chief Complaint (Nursing): Trauma History Per: Patient History/Exam Limitations: no limitations Onset/Duration Of Symptoms: Hrs Injury Occurred (Timing): Just Before Arrival Location Of Injury: Left: Face, Head, Shoulder Recent travel outside of the [place]: No Additional History Per: Patient - Fall Fall:Prior To Injury: Slipped Past Medical History Reviewed: Historical Data, Nursing Documentation, Vital Signs Vital Signs: Last Vital Signs Temp 97.5 F L 11/03/18 18:44 Pulse 78 11/03/18 19:24 Resp 16 11/03/18 19:24 BP 209/99 H 11/03/18 19:24 Pulse Ox 99 11/03/18 19:24 - Medical History PMH: CHF, HTN Surgical History: No Surg Hx - [facility] Procedures INTRODUCE OF LOCAL ANESTH INTO SPINAL CANAL, PERC APPROACH (11/07/17) INTRODUCTION OF ANTI-INFLAM INTO SPINAL CANAL, PERC APPROACH (11/07/17) INTRODUCTION OF ANTI-INFLAMMATORY INTO MUSCLE, PERC APPROACH (11/07/17) INTRODUCTION OF LOCAL ANESTHETIC INTO MUSCLE, PERC APPROACH (11/07/17) Family History: States: Unknown Family Hx - Social History Hx Alcohol Use: No Hx Substance Use: No - Immunization History Hx Tetanus Toxoid Vaccination: No Hx Influenza Vaccination: No Hx Pneumococcal Vaccination: No Review Of Systems Constitutional: Negative for: Fever, Chills Eyes: Negative for: Vision Change Cardiovascular: Negative for: Chest Pain, Palpitations Respiratory: Negative for: Shortness of Breath Gastrointestinal: Negative for: Nausea, Vomiting, Abdominal Pain Musculoskeletal: Positive for: Shoulder Pain, Hand Pain Skin: Positive for: Other (abrasion) Neurological: Positive for: Headache. Negative for: Weakness, Numbness, Dizziness Physical Exam - Physical Exam Appears: Non-toxic, No Acute Distress Skin: Normal Color, Warm, Dry, Ecchymosis (left wrist and left 5th digit) Head: Normacephalic, Abrasion (left sided forehead) Eye(s): bilateral: Normal Inspection, PERRL, EOMI Oral Mucosa: Moist Neck: Normal ROM, Paracervical Tenderness (diffuse), Supple Chest: Symmetrical Cardiovascular: Rhythm Regular, Murmur (systolic) Respiratory: Normal Breath Sounds, No Rales, No Rhonchi, No Wheezing Gastrointestinal/Abdominal: Soft, No Tenderness, No Guarding, No Rebound Extremity: Normal ROM, Tenderness (posterior left shoulder), Capillary Refill (< 2 seconds), No Swelling Pulses: Left Radial: Normal, Right Radial: Normal Neurological/Psych: Oriented x3, Normal Speech, Normal Cognition Gait: With Assistance (walker) ED Course And Treatment - Laboratory Results Result Diagrams: 11/03/18 21:23 11/03/18 20:56 ECG: Interpreted By Me, Viewed By Me ECG Rhythm: Atrial Fibrillation Rate From EC (BPM) O2 Sat by Pulse Oximetry: 99 (On RA) Pulse Ox Interpretation: Normal - Other Rad Left wrist X-Ray X-Ray: Read By Radiologist Interpretation: EXAM: CR left Wrist, 3 View. CLINICAL HISTORY: Patient fell. COMPARISON: None provided. FINDINGS: BONES: There is an old fracture with healing reaction deformity left distal radius. An old avulsion type fracture of the ulnar styloid process noted.. 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 SOFT TISSUES: Advanced atherosclerotic changes with calcification noted. IMPRESSION: Old fracture deformity distal radius. 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 Advanced atherosclerotic changes. Cl inical correlation advised. . Electronically signed on Nov 03, 2018 7:43:19 PM EST by: Miguel Lazcano M.D., Certified by ABR, Diagnostic Radiology Left shoulder X-ray X-Ray: Read By Radiologist Interpretation: EXAM: CR left Shoulder, 3 View. CLINICAL HISTORY: PATIENT FELL. COMPARISON: None provided. FINDINGS: BONES: No acute fracture or aggressive appearing osseous lesion. JOINTS: There is moderate osteoarthritic change involving the shoulder. SOFT TISSUES: The soft tissues are unremarkable. IMPRESSION: No acute fracture. Moderate osteoarthritic changes left shoulder. . Electronically signed on Nov 03, 2018 9:03:44 PM EST by: Miguel Lazcano M.D., Certified by ABR, Diagnostic Radiology Ct c spine X-Ray: Read By Radiologist Interpretation: EXAM: CT Cervical Spine Without IV contrast. CLINICAL HISTORY: NECK INJURY. TECHNIQUE: Axial computed tomography images of the cervical spine without intravenous contrast. Sagittal and coronal reformatted images were generated. COMPARISON: None provided. FINDINGS: ALIGNMENT: Bony alignment is anatomic. DEGENERATIVE CHANGES: No significant canal stenosis or neural foraminal narrowing evident. There is evidence of degenerative disc disease at C6-7, C7-T1. Vertebral planus deformity is seen to involve the C5-C6-C7 vertebrae. Advanced degenerative arthritis is noted in the atlanto-dens interval. Right apophyseal facet arthropathy is seen at C4-5. Advanced bilateral local vertebral facet arthropathy is noted at C6-7, C7-T1. SOFT TISSUES: The prevertebral soft tissues are within normal limits. BONES: No acute fracture or aggressive appearing osseous lesion. Anterior hyperostotic spurring arises f rom the C2-T2 vertebrae which could be consistent with Forestier's disease or DISH. VASCULAR: Dense atherosclerotic vascular plaquing is present within the carotid bulbs and vertebral arteries bilaterally. IMPRESSION: 1. No acute cervical spine abnormality. 2. Hyperostotic spurring arises from the C2-T2 vertebrae thought consistent with Forestier's disease or DISH. 3. There is evidence of degenerative disc disease at C6-7 and C7-T1. 4. Advanced degenerative arthritis is noted within the atlanto-dens interval. 5. Additional nonacute findings as described above. . Electronically signed on Nov 03, 2018 8:46:38 PM EST by: Israel Ervin M.D., AUNDREA Certified By ABR & CBCCT. Fellowship Trained MRI and CT Specialist - CT Scan/US Ct head Other Rad Studies (CT/US): Read By Radiologist, Radiology Report Reviewed CT/US Interpretation: EXAM: CT Head without Intravenous Contrast. CLINICAL HISTORY: HEAD INJURY. S/P FALL. TECHNIQUE: Axial computed tomography images of the head/brain without intravenous contrast. 0.00 mGy-cm. COMPARISON: None provided. FINDINGS: BRAIN. There is no acute hemorrhage. There is mild periventricular white matter ischemic change. Small infarct is seen at the righ t occipital region. VENTRICLES: No hydrocephalus. ORBITS: The orbits are unremarkable. SINUSES AND MASTOIDS: The paranasal sinuses and mastoid air cells are clear. BONES: No fracture. SOFT TISSUES: There is soft tissue swelling in the left frontal region. A small subcutaneous calcification is seen at the left parietal region. IMPRESSION: Periventricular white matter ischemic changes. Small infarct right occipital region. Clinical correlation advised. Soft tissue swelling left frontal region. Subcutaneous calcification seen in the left parietal region. . Electronically signed on Nov 03, 2018 9:03:56 PM EST by: Miguel Lazcano M.D., Certified by ABR, Diagnostic Radiology CT orbits Other Rad Studies (CT/US): Read By Radiologist, Radiology Report Reviewed CT/US Interpretation: EXAM: CT Maxillofacial without Intravenous Contrast. CLINICAL HISTORY: FACIAL INJURY. TECHNIQUE: Axial computed tomography images of the face without intravenous contrast. Sagittal and coronal reformatted images were generated. 719 mGy-cm. CONTRAST: Without. COMPARISON: None provided. FINDINGS: BONES: No acute fracture or aggressive appearing osseous lesion. The mandible is intact. SOFT TISSUES: Left forehead swelling/hematoma is seen. SINUSES: Bilateral ethmoid and maxillary sinusitis. ORBITS: The orbits are normal. No retrobulbar hematoma or mass. IMPRESSION: 1. Bilateral ethmoid and maxillary sinusitis. 2. Left forehead swelling/hematoma is seen. . Electronically signed on Nov 03, 2018 8:48:53 PM EST by: Israel Ervin M.D., AUNDREA Certified By ABR & CBCCT. Fellowship Trained MRI and CT Specialist Orthopedic Time Out: Side verified, Site verified, Patient ID confirmed, Sterile procedures obs. Procedure: Splint Other:: gutter Location: Finger Consent obtained: Verbal Performed by: Mid-level Provider (checked by me) Diagnosis: Fracture Bone: 5th Capillary refill: Normal Distal Sensation: Normal Distal Motor Function: Normal Capillary Refill: Normal Compartment: Normal Distal Sensation: Normal Distal Motor Function: Normal Patient tolerated procedure: Well Medical Decision Making Medical Decision Making: Plan: * CT head * CT C-spine * CT orbits * EKG * Labs * Left wrist X-Ray * Left hand X-Ray * Left shoulder X-Ray * Aspirin 325 mg PO * Toradol 15 mg IVP spoke to the radiologist at [facility] about the head CT reading, as per reading reports "infarct" which can be old or possibly related to the fall unsure about it. Patient remained stable in the ED, patient to be admitted to telemetry, Patient's PMD was in the ED and saw patient. Ulnar gutter splint was placed for left 5th digit fracture. Disposition - Disposition Disposition: HOSPITALIZED Disposition Time: 21:40 Condition: STABLE - Clinical Impression Clinical Impression: Fracture of bone, Near syncope - Scribe Statement The provider has reviewed the documentation as recorded by the Scribe Wilnre Zhu All medical record entries made by the Scribe were at my direction and personally dictated by me. I have reviewed the chart and agree that the record accurately reflects my personal performance of the history, physical exam, medical decision making, and the department course for this patient. I have also personally directed, reviewed, and agree with the discharge instructions and disposition.
[2018-11-03 21:11] LABS: ALB/GLOB RATIO 1.3 (1.0-2.1); ALBUMIN 4.5 g/dL (3.5-5.0); ALT/SGPT 7 U/L (9-52); AST/SGOT 36 U/L (14-36); BLOOD UREA NITROGEN 11 mg/dL (7-17); CALCIUM 9.4 mg/dl (8.6-10.4); GFR NON-AFRICAN AMERICAN > 60
[2018-11-03] MEDS ORDERED: Aspirin 325 mg EC Tablets PO ONE (21:12)
[2018-11-03 21:27] LABS: BASO # 0.1 K/uL (0.0-0.2); EOS # 0.2 K/uL (0.0-0.7); EOS % 2.5 % (0.0-4.0); LYMPH # 1.1 K/uL (1.0-4.3); MEAN CELL VOLUME 79.9 fL (81.0-99.0); MEAN CORPUSCULAR HEMOGLOBIN 25.3 pg (27.0-31.0); MEAN CORPUSCULAR HGB CONC 31.7 g/dL (33.0-37.0); MEAN PLATELET VOLUME 8.6 fL (7.2-11.7); MONO # 0.5 K/uL (0.0-0.8); MONO % 5.1 % (0.0-10.0); NEUT # 7.1 K/uL (1.8-7.0); NEUT % 79.4 % (50.0-75.0); RBC 5.58 Mil/uL (3.80-5.20); RED CELL DISTRIBUTION WIDTH 14.8 % (11.5-14.5); WHITE BLOOD COUNT 8.9 K/uL (4.8-10.8)
[2018-11-03 21:37] LABS: HEMOGLOBIN 14.2 g/dL (11.0-16.0)
--- NOTE | 2018-11-03 23:19 | CP.PCM.HP ---
Past Patient History - Past Medical History & Family History Past Medical History?: Yes - Past Social History Smoking Status: Never Smoked - CARDIAC Hx Congestive Heart Failure: Yes Hx Hypertension: Yes - ENDOCRINE/METABOLIC Hx Endocrine Disorders: Yes Hx Diabetes Mellitus Type 2: Yes - MUSCULOSKELETAL/RHEUMATOLOGICAL Hx Falls: Yes - PSYCHIATRIC Hx Substance Use: No - SURGICAL HISTORY Hx Surgeries: Yes Hx Cataract Extraction: Yes Hx Hysterectomy: Yes - ANESTHESIA Hx Anesthesia: Yes Hx Anesthesia Reactions: No Meds Allergies/Adverse Reactions: Allergies Allergy/AdvReac Type Severity Reaction Status Date / Time No Known Allergies Allergy Verified 11/03/18 18:33 Results - Vital Signs Recent Vital Signs: Last Vital Signs Temp 97.7 F 11/03/18 22:35 Pulse 78 11/03/18 22:35 Resp 16 11/03/18 22:35 BP 178/92 H 11/03/18 22:35 Pulse Ox 100 11/03/18 22:35 - Labs Result Diagrams: 11/03/18 21:23 11/03/18 20:56 Labs: Laboratory Results - last 24 hr 11/03/18 11/03/18 11/03/18 18:34 20:56 21:23 WBC 8.9 RBC 5.58 H Hgb 14.2 D Hct 44.6 MCV 79.9 L MCH 25.3 L MCHC 31.7 L RDW 14.8 H Plt Count 250 MPV 8.6 Neut % (Auto) 79.4 H Lymph % (Auto) 12.0 L Routt % (Auto) 5.1 Eos % (Auto) 2.5 Baso % (Auto) 1.0 Neut # (Auto) 7.1 H Lymph # (Auto) 1.1 Routt # (Auto) 0.5 Eos # (Auto) 0.2 Baso # (Auto) 0.1 Sodium 137 Potassium 4.2 Chloride 99 Carbon Dioxide 27 Anion Gap 15 BUN 11 Creatinine 0.8 Est GFR ( Amer) > 60 Est GFR (Non-Af Amer) > 60 POC Glucose (mg/dL) 211 H Random Glucose 164 H D Calcium 9.4 Total Bilirubin 1.0 AST 36 ALT 7 L D Alkaline Phosphatase 109 Troponin I < 0.0120 Total Protein 7.8 Albumin 4.5 Globulin 3.4 Albumin/Globulin Ratio 1.3
[2018-11-03] MEDS ORDERED: Glucagon Recombinant 1 mg Inj IM PRN (23:27)
[2018-11-03] MEDS ORDERED: Dextrose 50% SYRINGE Inj (50 ml) IV PRN (23:27)
[2018-11-04] MEDS: (Novolog) Insulin Aspart, Recombinant 100 u/ml 10 ml vial SC SCH ×6 (08:30→21:15)
[2018-11-04] MEDS: Pantoprazole 40 mg EC Tab PO SCH (09:24)
--- NOTE | 2018-11-04 09:32 | RAD ---
PROCEDURE: Left Hand Radiographs. HISTORY: s/p fall r/o fx COMPARISON: None. FINDINGS: BONES: Diffuse osteopenia suggests osteoporosis. No acute fracture or destructive bony lesion identified. Old healed Colles fracture identified at the distal left radius JOINTS: Degenerative joint space narrowing and articular cortical sclerosis appreciate throughout the digits of the hand diffusely but particularly the basal joint at the wrist. SOFT TISSUES: Extensive vascular calcifications are seen at the forearm and wrist. OTHER FINDINGS: None. IMPRESSION: No acute fracture dislocation. Advanced degenerative joint disease appreciated at the wrist, moderate throughout the hand. Old healed fracture distal left radius.
--- NOTE | 2018-11-04 09:47 | RAD ---
Date of service: 11/03/2018 PROCEDURE: Left Wrist Radiographs. HISTORY: s/p fall r/o fx COMPARISON: None. FINDINGS: BONES: Will distal left radial fracture identified with mild deformity remaining. Avulsion fracture of left ulna styloid appreciated. No acute carpal bone fracture identified. No destructive bony lesion appreciated. JOINTS: Degenerative cortical sclerosis is is seen diffusely throughout the left wrist joints including radiocarpal joints and is seen worst at the basal joint laterally with limited inferolateral subluxation of the 1st metatarsal bone. SOFT TISSUES: Vascular calcifications in the wrist and distal forearm soft tissues. OTHER FINDINGS: None. IMPRESSION: Old healed distal right left radial fracture as well as ulnar styloid fracture. No acute fracture, subluxation or dislocation left wrist.
--- NOTE | 2018-11-04 10:34 | RAD ---
Date of service: 11/03/2018 PROCEDURE: Radiographs of the Left Shoulder HISTORY: s/p fall r/o fx COMPARISON: No prior. FINDINGS: BONES: Diffuse osteopenia suggests osteoporosis. No acute fracture or destructive bony lesion identified. JOINTS: No subluxation or dislocation. However, cortical sclerosis is appreciated at the acromioclavicular and glenohumeral joints compatible degenerative joint disease. SOFT TISSUES: Normal. OTHER FINDINGS: None. IMPRESSION: Degenerative changes left acromioclavicular and glenohumeral joints. No fracture or dislocation identified.
[2018-11-04] MEDS: Metoprolol Succinate 12.5 mg XL Tab PO SCH ×2 (10:43→17:40)
--- NOTE | 2018-11-04 11:38 | CT ---
Date of service: 11/03/2018 PROCEDURE: CT HEAD WITHOUT CONTRAST. HISTORY: s/p fall r/o fx and ICH COMPARISON: Noncontrast head CT 05/27/2014. TECHNIQUE: Axial computed tomography images were obtained through the head/brain without intravenous contrast. Radiation dose: Total exam DLP = 1063.4 mGy-cm. This CT exam was performed using one or more of the following dose reduction techniques: Automated exposure control, adjustment of the mA and/or kV according to patient size, and/or use of iterative reconstruction technique. FINDINGS: HEMORRHAGE: No intracranial hemorrhage. BRAIN: Diffuse cerebral atrophy chronic microangiopathy reiterated in the interval. Chronic lobar infarction at the right occipital lobe reiterated. No definite acute intracranial findings or mass effect. No suspicious extra-axial collection VENTRICLES: Unremarkable. No hydrocephalus. CALVARIUM: Unremarkable. PARANASAL SINUSES: No destructive bony lesion or displaced fracture identified including through the skullbase. MASTOID AIR CELLS: Unremarkable as visualized. No inflammatory changes. OTHER FINDINGS: Left frontal scalp hematoma noted. IMPRESSION: Stable limited age-related neuro degenerative changes are identified as well as chronic lobar infarction right occipital lobe. Interval small left frontal scalp hematoma noted. No fracture or intracranial hemorrhage appreciable. Concordant preliminary report from [facility], 11/03/2018, 9:03 p.m..
--- NOTE | 2018-11-04 11:44 | CT ---
Date of service: 11/03/2018 PROCEDURE: CT ORBITS WITHOUT CONTRAST. HISTORY: s/p fall r/o fx COMPARISON: None available. TECHNIQUE: Axial CT images of the orbits were obtained. Coronal and sagittal reformats were generated. Radiation dose: Total exam DLP = 719.49 mGy-cm. This CT exam was performed using one or more of the following dose reduction techniques: Automated exposure control, adjustment of the mA and/or kV according to patient size, and/or use of iterative reconstruction technique. FINDINGS: RIGHT ORBIT: RIGHT BONY ORBIT: Normal. RIGHT INTRAORBITAL STRUCTURES: Globe: Normal. Extraocular muscles: Normal. Post septal space: Normal. Optic Nerve: Normal. Lacrimal Apparatus: Normal. RIGHT PRESEPTAL SOFT TISSUES: Normal. LEFT ORBIT: LEFT BONY ORBIT: Normal. LEFT INTRAORBITAL STRUCTURES: Globe: Normal. Extraocular muscles: Normal. Post septal space: Normal Optic Nerve: Normal. . Lacrimal Apparatus: Normal. LEFT PRESEPTAL SOFT TISSUES: Normal. OTHER: Moderate bifrontal scalp hematoma. No frontal or facial bone fracture appreciated otherwise. IMPRESSION: Unremarkable non contrast enhanced CT of the orbits. Bifrontal scalp hematoma appears moderate. Concordant preliminary report from [facility], 11/03/2018 8:48 p.m..
--- NOTE | 2018-11-04 11:51 | CT ---
Date of service: 11/03/2018 PROCEDURE: CT Cervical Spine without contrast HISTORY: s/p fall r/o fx COMPARISON: None available. TECHNIQUE: Axial computed tomography images were obtained of the cervical spine without the use of intravenous contrast. Coronal and sagittal reformatted images were created and reviewed. Radiation dose: Total exam DLP = 159.28 mGy-cm. This CT exam was performed using one or more of the following dose reduction techniques: Automated exposure control, adjustment of the mA and/or kV according to patient size, and/or use of iterative reconstruction technique. FINDINGS: VERTEBRAE: No fracture. Normal alignment. No destructive bony lesion. DISCS/SPINAL CANAL/NEURAL FORAMINA: Gross multilevel cervical spondylosis predominantly anterior affects all levels including C1-2. Multilevel facet joint degenerative arthropathy identified. C1 to degenerative pannus is identified posterior to the dens. No severe spinal stenosis appreciated. Circumferential disc osteophyte complex combines with uncovertebral and facet joint degenerative arthropathy to cause moderate bilateral neural foraminal stenosis and borderline central stenosis at C6-7 with similar pattern at C7-T1. PARASPINAL SOFT TISSUES: Unremarkable. OTHER FINDINGS: None. IMPRESSION: No fracture or spondylolisthesis appreciable. There is advanced multilevel diffuse spondylosis throughout the cervical spine predominantly anterior in development rather than posterior. Moderate bilateral neural foraminal stenosis seen at C6-7 and C7-T1 on a degenerative basis with borderline central canal stenoses accompanying these levels. Preliminary report provided by [facility], 11/03/2018, 8:46 p.m..
--- NOTE | 2018-11-04 15:40 | CP.PCM.PN ---
Subjective - Date & Time of Evaluation Date of Evaluation: 11/04/18 Time of Evaluation: 10:00 - Subjective Subjective: clinically same Objective - Vital Signs/Intake and Output Vital Signs (last 24 hours): Temp Pulse Resp BP Pulse Ox 98.0 F 72 20 157/78 H 98 11/04/18 07:00 11/04/18 10:43 11/04/18 07:00 11/04/18 10:43 11/04/18 08:00 - Medications Medications: Current Medications Apixaban (Eliquis) 2.5 mg PO BID [facility] Last Admin: 11/04/18 09:24 Dose: 2.5 mg Artificial Tears (Artificial Tears Refresh Celluvisc) 0.4 ml OU BID [facility] Dextrose (Dextrose 50% Inj) 0 ml IV STAT PRN; Protocol PRN Reason: Hypoglycemia Protocol Dextrose (Glutose 15) 0 gm PO ONCE PRN; Protocol PRN Reason: Hypoglycemia Protocol Digoxin (Digoxin) 0.125 mg PO DAILY@1800 [facility] Glucagon (Glucagen Diagnostic Kit) 0 mg IM STAT PRN; Protocol PRN Reason: Hypoglycemia Protocol Dextrose (Dextrose 5% In Water 1000 Ml) 1,000 mls @ 0 mls/hr IV .Q0M PRN; Protocol PRN Reason: Hypoglycemia Protocol Influenza Virus Vaccine (Flucelvax Quad [id number] Syr) 60 mcg IM .ONCE ONE Stop: 11/05/18 14:01 Insulin Aspart (Novolog) 1 unit SC [facility]; Protocol Last Admin: 11/04/18 11:45 Dose: Not Given Insulin Aspart (Novolog) 0 unit SC [facility]; Protocol Last Admin: 11/04/18 11:45 Dose: Not Given Ketorolac Tromethamine (Toradol) 15 mg IVP TID PRN PRN Reason: Pain, moderate (4-7) Metformin HCl (Glucophage) 500 mg PO BID [facility] Last Admin: 11/04/18 09:23 Dose: 500 mg Metoprolol Succinate (Toprol Xl) 12.5 mg PO BID [facility] Last Admin: 11/04/18 10:43 Dose: 12.5 mg Pantoprazole Sodium (Protonix Ec Tab) 40 mg PO DAILY [facility] Last Admin: 11/04/18 09:24 Dose: 40 mg Rosuvastatin Calcium (Crestor) [address] [facility] Sitagliptin Phosphate (Januvia) 50 mg PO DAILY [facility] Last Admin: 11/04/18 09:23 Dose: 50 mg - Labs Labs: 11/03/18 21:23 11/03/18 20:56 - Constitutional Appears: Well - Head Exam Head Exam: ATRAUMATIC, NORMAL INSPECTION, NORMOCEPHALIC - Eye Exam Eye Exam: EOMI, Normal appearance, PERRL Pupil Exam: NORMAL ACCOMODATION, PERRL - ENT Exam ENT Exam: Mucous Membranes Moist, Normal Exam - Neck Exam Neck Exam: Full ROM, Normal Inspection. absent: Lymphadenopathy - Respiratory Exam Respiratory Exam: Decreased Breath Sounds - Cardiovascular Exam Cardiovascular Exam: REGULAR RHYTHM, +S1, +S2 - GI/Abdominal Exam GI & Abdominal Exam: Soft, Diminished Bowel Sounds - Rectal Exam Rectal Exam: Deferred
[2018-11-04] MEDS: Digoxin 125 mcg (0.125 mg) Tab PO SCH (17:40)
[2018-11-04] MEDS ORDERED: Carboxymethylcellulose 1% Ophth Soln OU SCH (18:00)
[2018-11-04] MEDS: Aritificial Tears (15ml) OU SCH (18:19)
[2018-11-05] MEDS: (Novolog) Insulin Aspart, Recombinant 100 u/ml 10 ml vial SC SCH ×4 (08:28→22:47)
[2018-11-05] MEDS: Pantoprazole 40 mg EC Tab PO SCH (09:18)
[2018-11-05] MEDS: Metoprolol Succinate 12.5 mg XL Tab PO SCH ×2 (09:18→22:46)
[2018-11-05] MEDS: Aritificial Tears (15ml) OU SCH ×2 (09:19→18:41)
[2018-11-05] MEDS ORDERED: Influenza Vaccine 60 mcg/0.5 mL SYR (4YR UP) IM ONE (14:00)
--- NOTE | 2018-11-05 17:08 | CP.PCM.PN ---
Subjective - Date & Time of Evaluation Date of Evaluation: 11/05/18 Time of Evaluation: 11:00 - Subjective Subjective: clinically same Objective - Vital Signs/Intake and Output Vital Signs (last 24 hours): Temp Pulse Resp BP Pulse Ox 98.0 F 75 18 157/78 H 94 L 11/05/18 07:00 11/05/18 11:09 11/05/18 07:00 11/05/18 07:00 11/05/18 12:00 Intake and Output: 11/05/18 11/05/18 06:59 18:59 Intake Total 320 Balance 320 - Medications Medications: Current Medications Apixaban (Eliquis) 2.5 mg PO BID [facility] Last Admin: 11/05/18 09:18 Dose: 2.5 mg Artificial Tears (Artificial Tears) 0.4 ml OU BID [facility] Last Admin: 11/05/18 09:19 Dose: 1 drop Dextrose (Dextrose 50% Inj) 0 ml IV STAT PRN; Protocol PRN Reason: Hypoglycemia Protocol Dextrose (Glutose 15) 0 gm PO ONCE PRN; Protocol PRN Reason: Hypoglycemia Protocol Digoxin (Digoxin) 0.125 mg PO DAILY@1800 [facility] Last Admin: 11/04/18 17:40 Dose: 0.125 mg Glucagon (Glucagen Diagnostic Kit) 0 mg IM STAT PRN; Protocol PRN Reason: Hypoglycemia Protocol Dextrose (Dextrose 5% In Water 1000 Ml) 1,000 mls @ 0 mls/hr IV .Q0M PRN; Pro tocol PRN Reason: Hypoglycemia Protocol Insulin Aspart (Novolog) 0 unit SC [facility]; Protocol Last Admin: 11/05/18 12:38 Dose: Not Given Ketorolac Tromethamine (Toradol) 15 mg IVP TID PRN PRN Reason: Pain, moderate (4-7) Last Admin: 11/05/18 11:00 Dose: 15 mg Metformin HCl (Glucophage) 500 mg PO BID [facility] Last Admin: 11/05/18 09:18 Dose: 500 mg Metoprolol Succinate (Toprol Xl) 12.5 mg PO BID [facility] Last Admin: 11/05/18 09:18 Dose: 12.5 mg Mupirocin (Bactroban Ointment) 1 gm TOP DAILY [facility] Pantoprazole Sodium (Protonix Ec Tab) 40 mg PO DAILY [facility] Last Admin: 11/05/18 09:18 Dose: 40 mg Rosuvastatin Calcium (Crestor) 10 mg PO HS [facility] Last Admin: 11/04/18 21:15 Dose: 10 mg Sitagliptin Phosphate (Januvia) 50 mg PO DAILY [facility] Last Admin: 11/05/18 09:18 Dose: 50 mg - Labs Labs: 11/03/18 21:23 11/03/18 20:56 - Constitutional Appears: Well - Head Exam Head Exam: ATRAUMATIC, NORMAL INSPECTION, NORMOCEPHALIC - Eye Exam Eye Exam: EOMI, Normal appearance, PERRL Pupil Exam: NORMAL ACCOMODATION, PERRL - ENT Exam ENT Exam: Mucous Membranes Moist, Normal Exam - Neck Exam Neck Exam: Full ROM, Normal Inspection. absent: Lymphadenopathy - Respiratory Exam Respiratory Exam: Decreased Breath Sounds - Cardiovascular Exam Cardiovascular Exam: REGULAR RHYTHM, +S1, +S2 - GI/Abdominal Exam GI & Abdominal Exam: Soft, Diminished Bowel Sounds - Rectal Exam Rectal Exam: Deferred
[2018-11-05] MEDS: Digoxin 125 mcg (0.125 mg) Tab PO SCH (18:41)
--- NOTE | 2018-11-06 07:02 | CP.PCM.CON ---
History of Present Illness - History of Present Illness History of Present Illness: CONSULTATION DICTATED POST CONCUSSION SYNDROME ?SEIZURES MRI/EEG FALL PRECAUTION Past Patient History - Past Medical History & Family History Past Medical History?: Yes - Past Social History Smoking Status: Never Smoked - CARDIAC Hx Congestive Heart Failure: Yes Hx Hypertension: Yes - ENDOCRINE/METABOLIC Hx Endocrine Disorders: Yes Hx Diabetes Mellitus Type 2: Yes - MUSCULOSKELETAL/RHEUMATOLOGICAL Hx Falls: Yes - PSYCHIATRIC Hx Substance Use: No - SURGICAL HISTORY Hx Surgeries: Yes Hx Cataract Extraction: Yes Hx Hysterectomy: Yes - ANESTHESIA Hx Anesthesia: Yes Hx Anesthesia Reactions: No Meds Allergies/Adverse Reactions: Allergies Allergy/AdvReac Type Severity Reaction Status Date / Time No Known Allergies Allergy Verified 11/03/18 18:33 - Medications Medications: Current Medications Apixaban (Eliquis) 2.5 mg PO BID [facility] Last Admin: 11/05/18 18:40 Dose: 2.5 mg Artificial Tears (Artificial Tears) 0.4 ml OU BID [facility] Last Admin: 11/05/18 18:41 Dose: 1 drop Dextrose (Dextrose 50% Inj) 0 ml IV STAT PRN; Protocol PRN Reason: Hypoglycemia Protocol Dextrose (Glutose 15) 0 gm PO ONCE PRN; Protocol PRN Reason: Hypoglycemia Protocol Digoxin (Digoxin) 0.125 mg PO DAILY@1800 [facility] Last Admin: 11/05/18 18:41 Dose: 0.125 mg Glucagon (Glucagen Diagnostic Kit) 0 mg IM STAT PRN; Protocol PRN Reason: Hypoglycemia Protocol Dextrose (Dextrose 5% In Water 1000 Ml) 1,000 mls @ 0 mls/hr IV .Q0M PRN; Protocol PRN Reason: Hypoglycemia Protocol Insulin Aspart (Novolog) 0 unit SC ACHS [facility]; Protocol Last Admin: 11/05/18 22:47 Dose: Not Given Ketorolac Tromethamine (Toradol) 15 mg IVP TID PRN PRN Reason: Pain, moderate (4-7) Last Admin: 11/05/18 11:00 Dose: 15 mg Metformin HCl (Glucophage) 500 mg PO BID [facility] Last Admin: 11/05/18 18:41 Dose: 500 mg Metoprolol Succinate (Toprol Xl) 12.5 mg PO BID [facility] Last Admin: 11/05/18 22:46 Dose: 12.5 mg Mupirocin (Bactroban Ointment) 1 gm TOP DAILY [facility] Last Admin: 11/05/18 18:57 Dose: 1 applic Pantoprazole Sodium (Protonix Ec Tab) 40 mg PO DAILY [facility] Last Admin: 11/05/18 09:18 Dose: 40 mg Rosuvastatin Calcium (Crestor) 10 mg PO HS [facility] Last Admin: 11/05/18 22:46 Dose: 10 mg Sitagliptin Phosphate (Januvia) 50 mg PO DAILY [facility] Last Admin: 11/05/18 09:18 Dose: 50 mg Results - Vital Signs Recent Vital Signs: Last Vital Signs Temp 97.6 F 11/05/18 23:50 Pulse 78 11/06/18 01:00 Resp 20 11/05/18 23:50 BP 161/81 H 11/06/18 04:00 Pulse Ox 98 11/06/18 00:00 - Labs Result Diagrams: 11/03/18 21:23 11/03/18 20:56 Labs: Laboratory Results - last 24 hr 11/05/18 11/05/18 11/05/18 12:25 17:29 21:50 POC Glucose (mg/dL) 142 H 122 H 175 H 11/06/18 06:32 POC Glucose (mg/dL) 113 H
[2018-11-06 07:41] LABS: MEAN CELL VOLUME 78.6 fL (81.0-99.0); RBC 4.64 Mil/uL (3.80-5.20); WHITE BLOOD COUNT 7.2 K/uL (4.8-10.8)
[2018-11-06 07:43] LABS: INR 1.6; PROTHROMBIN TIME 17.5 SECONDS (9.7-12.2)
[2018-11-06] MEDS: (Novolog) Insulin Aspart, Recombinant 100 u/ml 10 ml vial SC SCH ×4 (07:57→23:39)
[2018-11-06 08:11] LABS: ALB/GLOB RATIO 1.2 (1.0-2.1); ALBUMIN 3.4 g/dL (3.5-5.0); ALT/SGPT 12 U/L (9-52); AST/SGOT 16 U/L (14-36); BLOOD UREA NITROGEN 18 mg/dL (7-17); CALCIUM 8.7 mg/dl (8.6-10.4); GFR NON-AFRICAN AMERICAN 53; HDL CHOLESTEROL 36 mg/dL (30-70)
[2018-11-06 08:12] LABS: LDL CHOLESTEROL 48 mg/dL (0-129)
[2018-11-06 09:14] LABS: FOLATE 5.9 ng/mL
[2018-11-06] MEDS: Metoprolol Succinate 12.5 mg XL Tab PO SCH ×2 (11:43→19:00)
[2018-11-06] MEDS: Pantoprazole 40 mg EC Tab PO SCH (11:43)
[2018-11-06] MEDS: Aritificial Tears (15ml) OU SCH ×2 (11:43→19:00)
--- NOTE | 2018-11-06 11:44 | MRI ---
Date of service: 11/06/2018 PROCEDURE: MRI BRAIN WITHOUT CONTRAST HISTORY: head trauma COMPARISON: None available. TECHNIQUE: Multiplanar, multisequence MR images of the brain were obtained without intravenous contrast enhancement. FINDINGS: HEMORRHAGE: None DWI: No evidence of an acute or early subacute infarction. BRAIN PARENCHYMA: Good corticomedullary differentiation is seen. Proportional, diffuse expansion of the ventriculosulcal and cisternal spaces is appreciated with white matter lucency compatible with diffuse cerebral atrophy and chronic microangiopathy. No suspicious extra-axial fluid collection is identified and the midline brain anatomy appears grossly nonfocal as imaged. Chronic lacune left cerebellar base. There is no mass effect throughout. VENTRICLES: Unremarkable. No hydrocephalus. CRANIUM: Unremarkable. ORBITS: Grossly unremarkable. PARANASAL SINUSES/MASTOIDS: Small polyp or cyst left maxillary sinus. VASCULAR SYSTEM: Skull base flow voids intact. OTHER FINDINGS: None. IMPRESSION: Age-related degenerative findings are appreciated with a small chronic lacune noted left cerebellar base. No definite acute intracranial findings.
--- NOTE | 2018-11-06 13:37 | VASCLAB ---
Date of service: 11/06/2018 PROCEDURE: Lower Extremity Venous Duplex Exam. HISTORY: DVT PRIORS: None. TECHNIQUE: Bilateral common femoral, femoral, popliteal and posterior tibial, peroneal and great saphenous veins were evaluated. Flow was assessed with color Doppler, compressibility, assessment of phasic flow and augmentation response. Report prepared by ADRIANE Blackwell, RVT FINDINGS: RIGHT: 1. Common Femoral Vein: 1.1. Compressibility - Fully compressible: Thrombus - None : Flow - Phasic: Augmentation -Normal: Reflux - None. 2. Femoral Vein: 2.1. Compressibility - Fully compressible: Thrombus - None : Flow - Phasic: Augmentation -Normal: Reflux - None. 3. Popliteal Vein: 3.1. Compressibility - Fully compressible: Thrombus - None : Flow - Phasic: Augmentation -Normal: Reflux - None. 4. Posterior Tibial Vein: 4.1. Compressibility - Fully compressible: Thrombus - None: Flow - Phasic: Augmentation -Normal: Reflux - None. 5. Peroneal Vein: 5.1. Compressibility - Fully compressible: Thrombus - None: Flow - Phasic: Augmentation -Normal: Reflux - None. 6. Great Saphenous Vein: 6.1. Compressibility - Fully compressible: Thrombus - None: Flow - Phasic: Augmentation - Normal: Reflux - None. LEFT: 1. Common Femoral Vein: 1.1. Compressibility - Fully compressible: Thrombus - None: Flow - Phasic: Augmentation -Normal: Reflux - None. 2. Femoral Vein: 2.1. Compressibility - Fully compressible: Thrombus - None: Flow - Phasic: Augmentation -Normal: Reflux - None. 3. Popliteal Vein: 3.1. Compressibility - Fully compressible: Thrombus - None : Flow - Phasic: Augmentation -Normal: Reflux - None. 4. Posterior Tibial Vein: 4.1. Compressibility - Fully compressible: Thrombus - None: Flow - Phasic: Augmentation -Normal: Reflux - None. 5. Peroneal Vein: 5.1. Compressibility - Fully compressible: Thrombus - None: Flow - Phasic: Augmentation -Normal: Reflux - None. 6. Great Saphenous Vein: 6.1. Compressibility - Fully compressible: Thrombus - None: Flow - Phasic: Augmentation - Normal: Reflux - None. OTHER FINDINGS: Right: None significant. Left: None significant. IMPRESSION: Right: No evidence of deep or superficial vein thrombosis of the right lower extremity. Normal valve function noted of the right side. Left: No evidence of deep or superficial vein thrombosis of the left lower extremity. Normal valve function noted of the left side.
--- NOTE | 2018-11-06 16:23 | CON ---
DATE: 11/06/2018 ATTENDING PHYSICIAN: Danielle Stanley MD LOCATION: The patient is in room number 660, bed B. REASON FOR CONSULTATION: Possible fall and head trauma. CHIEF COMPLAINT: The patient was brought into [facility] by the family members with a history of fall in her bathroom. No clear history how she fell, any preceding symptoms. She uses the walker. She fell on her left side. She bruised her left side of the face, forehead and broke her left-sided little finger. HISTORY OF PRESENT ILLNESS: No history of loss of consciousness. No history of bowel or bladder incontinence. No similar episodes happened in the past. PAST MEDICAL HISTORY: Hypertension, heart failure. PAST SURGICAL HISTORY: No surgical history. ALLERGIES: NO KNOWN ALLERGIES. MEDICATIONS: Crestor, IV fluids, digoxin, Eliquis, Glucagon, Glucophage, insulin, Toradol, Toprol. PHYSICAL EXAMINATION: VITAL SIGNS: Blood pressure 161/81, mean arterial pressure 107, respiratory rate 16, pulse rate 78, regular temperature 97.6. NECK: Supple. No carotid bruit. HEART: Sounds regular. CHEST: Fair air entry, systolic murmur. EXTREMITIES: 1+ pitting edema. NEUROLOGIC: With language barrier, with limited exam. The patient is sitting comfortably, good visual acuity. Cranial nerve examination; respond to visual threat, pupil reactive to light on the right side, left side post-surgical changes noted. No facial sensory deficit. No facial asymmetry. Hearing seems to be intact. She is unable to copy the sign. Both upper extremities against the gravity, no drift noted. She has been able to both lower extremities without any problem. Deep tendon reflexes absent. Plantars are downgoing. Sensory examination; grossly intact, mildly sensory motor neuropathy. Coordination; finger-nose test is intact on the right side. CONCLUSION: As per my neurological examination on reviewing her history, the patient does have postconcussion syndrome, injured her left orbit and ecchymosis manifesting with racoon eye. From the fall, she also fractured her left hand. The patient also showed evidence of bilateral distal symmetrical sensorimotor neuropathy. The reason for the fall is still unexplained, there could be seizure versus ventricular basilar insufficiency. Workup; CT of the head, no acute ischemic process or bleed except left frontal hematoma. CT of the cervical spine showed severe spondylosis and degenerative disc disease stenosis at C6-C7 and C7-T1 region. The wrist x-ray reported old healed distal left radius fracture ulnar. X-ray of the left hand shows advanced degenerative changes appreciated on the wrist, moderate throughout the hand; old healed fracture at the left radius. Blood workup; WBC 8.9, hemoglobin 14.2, hematocrit 44.6, platelet 250. Sodium 137, potassium 4.2, chloride 99, bicarbonate 27, BUN 11, creatinine 0.8, GFR more than 60, glucose 129. RECOMMENDATIONS: 1. MRI of the brain to rule out any postconcussion syndrome manifesting with the contusion or any fresh bleed or ischemic process. 2. EEG to rule out any seizure activities. 3. Dementia workup updated. 4. Fall precaution and physical therapy should be initiated as soon as possible. The patient's condition has been discussed with the family members with language barrier. The patient will be followed closely with you. Octavio Portillo MD
--- NOTE | 2018-11-06 19:11 | CP.PCM.PN ---
Subjective - Date & Time of Evaluation Date of Evaluation: 11/06/18 Time of Evaluation: 11:15 Objective - Vital Signs/Intake and Output Vital Signs (last 24 hours): Temp Pulse Resp BP Pulse Ox 97.7 F 77 20 143/71 100 11/06/18 16:00 11/06/18 16:00 11/06/18 16:00 11/06/18 16:00 11/06/18 16:00 - Medications Medications: Current Medications Apixaban (Eliquis) 2.5 mg PO BID [facility] Last Admin: 11/06/18 11:44 Dose: 2.5 mg Artificial Tears (Artificial Tears) 0.4 ml OU BID [facility] Last Admin: 11/06/18 11:43 Dose: 1 drop Dextrose (Dextrose 50% Inj) 0 ml IV STAT PRN; Protocol PRN Reason: Hypoglycemia Protocol Dextrose (Glutose 15) 0 gm PO ONCE PRN; Protocol PRN Reason: Hypoglycemia Protocol Digoxin (Digoxin) 0.125 mg PO DAILY@1800 [facility] Last Admin: 11/05/18 18:41 Dose: 0.125 mg Glucagon (Glucagen Diagnostic Kit) 0 mg IM STAT PRN; Protocol PRN Reason: Hypoglycemia Protocol Dextrose (Dextrose 5% In Water 1000 Ml) 1,000 mls @ 0 mls/hr IV .Q0M PRN; Protocol PRN Reason: Hypoglycemia Protocol Insulin Aspart (Novolog) 0 unit SC ACHS [facility]; Protocol Last Admin: 11/06/18 13:32 Dose: Not Given Ketorolac Tromethamine (Toradol) 15 mg IVP TID PRN PRN Reason: Pain, moderate (4-7) Last Admin: 11/06/18 17:08 Dose: 15 mg Metformin HCl (Glucophage) 500 mg PO BID [facility] Last Admin: 11/06/18 11:43 Dose: 500 mg Metoprolol Succinate (Toprol Xl) 12.5 mg PO BID [facility] Last Admin: 11/06/18 11:43 Dose: 12.5 mg Mupirocin (Bactroban Ointment) 1 gm TOP DAILY [facility] Last Admin: 11/06/18 11:43 Dose: 1 applic Pantoprazole Sodium (Protonix Ec Tab) 40 mg PO DAILY [facility] Last Admin: 11/06/18 11:43 Dose: 40 mg Rosuvastatin Calcium (Crestor) 10 mg PO HS [facility] Last Admin: 11/05/18 22:46 Dose: 10 mg Sitagliptin Phosphate (Januvia) 50 mg PO DAILY [facility] Last Admin: 11/06/18 11:43 Dose: 50 mg - Labs Labs: 11/06/18 07:29 11/06/18 07:29 PT 17.5 SECONDS (9.7-12.2) H 11/06/18 07:29 INR 1.6 11/06/18 07:29 - Constitutional Appears: Well - Head Exam Head Exam: ATRAUMATIC, NORMAL INSPECTION, NORMOCEPHALIC - Eye Exam Eye Exam: EOMI, Normal appearance, PERRL Pupil Exam: NORMAL ACCOMODATION, PERRL - ENT Exam ENT Exam: Mucous Membranes Moist, Normal Exam - Neck Exam Neck Exam: Full ROM, Normal Inspection. absent: Lymphadenopathy - Respiratory Exam Respiratory Exam: Decreased Breath Sounds - Cardiovascular Exam Cardiovascular Exam: REGULAR RHYTHM, +S1, +S2 - GI/Abdominal Exam GI & Abdominal Exam: Soft, Diminished Bowel Sounds - Rectal Exam Rectal Exam: Deferred
[2018-11-06] MEDS: Digoxin 125 mcg (0.125 mg) Tab PO SCH (20:00)
--- NOTE | 2018-11-07 06:15 | CON ---
DATE: 11/06/2018 HISTORY OF PRESENT ILLNESS: The patient was admitted by Dr. Danielle Stanley with the diagnoses of near syncope and fracture of the left fifth finger. The patient sustained a fall when she fell off a walker and the impact was on the left side. The patient was admitted with diagnosis of syncope. PHYSICAL EXAMINATION: MUSCULOSKELETAL: Examination revealed an 82-year-old female complaining of pain over the left upper extremity. Tenderness over the anterior aspect of the shoulder noted. Range of motion of shoulder is restricted. No crepitus noted. Tenderness over the acromioclavicular joint and anterior aspect of the shoulder noted. Weakness of abduction and flexion noted. Examination of the left hand and wrist revealed ecchymotic areas which are resolving. Deformity of the proximal and distal interphalangeal joints noted. Minimal tenderness over the fifth metacarpal shaft noted. No crepitus noted. Tenderness also noted over the carpal metacarpal joint. X-rays of the left shoulder did not reveal any fractures or dislocations. Severe osteoporosis seen. 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 No definite fractures are seen. DIAGNOSIS: Contusion of the left shoulder, left hand and wrist. PLAN: At this point, the ulnar gutter splint is removed. A compression bandage is applied. At this time, the treatment is symptomatic. Also, the patient will continue occupational therapy. Wale Martinez MD
[2018-11-07] MEDS: (Novolog) Insulin Aspart, Recombinant 100 u/ml 10 ml vial SC SCH ×4 (07:37→21:23)
--- NOTE | 2018-11-07 07:50 | EEG ---
DATE: 11/06/2018 This is a 16 channel electroencephalogram of awake and a confused adult. During the study, photic stimulation was performed. Hyperventilation was not performed. The resting electroencephalogram consists of 20 to 30 microvolt 4 to 6 Hz delta mixed with theta activity seen at parietal and occipital leads. The vertex sharp wave was also noted. The intermittent movement artifact contaminated the background rhythm. The slow activity was continuous, noted from the beginning. The muscle artifact contaminated the background rhythm. The photic stimulation did not evoke driving response noted at 2 to 20 Hz. Diffuse bitemporal delta activities noted. IMPRESSION: This is an abnormal electroencephalogram because of persistent slowing throughout the record suggestive of bilateral cerebral dysfunction. This is probably secondary to metabolic, vascular, or degenerative process. Please correlate the findings with the neurological and radiological studies. Octavio Portillo MD
--- NOTE | 2018-11-07 07:57 | PN ---
DATE: 11/07/2018 TIME OF EVALUATION: 07:15 a.m. NEUROLOGICAL PROBLEM: Syncopal attack. PHYSICAL EXAMINATION: VITAL SIGNS: Blood pressure 145/75, mean arterial pressure of 98, respiratory rate is 18, temperature is 97.3. The patient was seen with family members. She is awake, following commands. Her examination, which is unchanged compared with previous examination. Her workup, EEG, generalized slow activities without any paroxysmal activities. MRI of the brain, no acute process noted. ASSESSMENT AND PLAN: The patient should be out of bed and physical therapy should be initiated. From neurological point of view, the patient can be discharged and should have followup with me as outpatient. Octavio Portillo MD
[2018-11-07] MEDS: Metoprolol Succinate 12.5 mg XL Tab PO SCH ×2 (09:17→17:59)
[2018-11-07] MEDS: Aritificial Tears (15ml) OU SCH ×2 (09:17→17:59)
[2018-11-07] MEDS: Pantoprazole 40 mg EC Tab PO SCH (09:18)
--- NOTE | 2018-11-07 10:06 | CARD ---
APPROVED REPORT Date of service: 11/03/2018 EKG Measurement Heart [id number] <Conclusion> Atrial fibrillation Possible Lateral infarct, age undetermined ST & T wave abnormality, consider inferior ischemia ST & T wave abnormality, consider anterior ischemia Abnormal ECG
--- NOTE | 2018-11-07 14:54 | CP.PCM.PN ---
Subjective - Date & Time of Evaluation Date of Evaluation: 11/07/18 Time of Evaluation: 11:15 - Subjective Subjective: clinically same Objective - Vital Signs/Intake and Output Vital Signs (last 24 hours): Temp Pulse Resp BP Pulse Ox 98 F 76 20 147/86 97 11/07/18 08:00 11/07/18 08:00 11/07/18 08:00 11/07/18 08:00 11/07/18 08:00 - Medications Medications: Current Medications Apixaban (Eliquis) 2.5 mg PO BID [facility] Last Admin: 11/07/18 09:17 Dose: 2.5 mg Artificial Tears (Artificial Tears) 0.4 ml OU BID [facility] Last Admin: 11/07/18 09:17 Dose: 1 drop Dextrose (Dextrose 50% Inj) 0 ml IV STAT PRN; Protocol PRN Reason: Hypoglycemia Protocol Dextrose (Glutose 15) 0 gm PO ONCE PRN; Protocol PRN Reason: Hypoglycemia Protocol Digoxin (Digoxin) 0.125 mg PO DAILY@1800 [facility] Last Admin: 11/06/18 20:00 Dose: 0.125 mg Glucagon (Glucagen Diagnostic Kit) 0 mg IM STAT PRN; Protocol PRN Reason: Hypoglycemia Protocol Insulin Aspart (Novolog) 0 unit SC [facility]; Protocol Last Admin: 11/07/18 14:53 Dose: Not Given Metformin HCl (Glucophage) 500 mg PO BID [facility] Last Admin: 11/07/18 09:17 Dose: 500 mg Metoprolol Succinate (Toprol Xl) 12.5 mg PO BID [facility] Last Admin: 11/07/18 09:17 Dose: 12.5 mg Mupirocin (Bactroban Ointment) 1 gm TOP DAILY [facility] Last Admin: 11/07/18 09:17 Dose: 1 applic Pantoprazole Sodium (Protonix Ec Tab) 40 mg PO DAILY [facility] Last Admin: 11/07/18 09:18 Dose: 40 mg Rosuvastatin Calcium (Crestor) 10 mg PO HS [facility] Last Admin: 11/06/18 23:00 Dose: 10 mg Sitagliptin Phosphate (Januvia) 50 mg PO DAILY [facility] Last Admin: 11/07/18 09:17 Dose: 50 mg - Labs Labs: 11/06/18 07:29 11/06/18 07:29 PT 17.5 SECONDS (9.7-12.2) H 11/06/18 07:29 INR 1.6 11/06/18 07:29 - Constitutional Appears: Well - Head Exam Head Exam: ATRAUMATIC, NORMAL INSPECTION, NORMOCEPHALIC - Eye Exam Eye Exam: EOMI, Normal appearance, PERRL Pupil Exam: NORMAL ACCOMODATION, PERRL - ENT Exam ENT Exam: Mucous Membranes Moist, Normal Exam - Neck Exam Neck Exam: Full ROM, Normal Inspection. absent: Lymphadenopathy - Respiratory Exam Respiratory Exam: Decreased Breath Sounds - Cardiovascular Exam Cardiovascular Exam: REGULAR RHYTHM, +S1, +S2 - GI/Abdominal Exam GI & Abdominal Exam: Soft, Diminished Bowel Sounds - Rectal Exam Rectal Exam: Deferred
[2018-11-07] MEDS: Digoxin 125 mcg (0.125 mg) Tab PO SCH (18:00)
[2018-11-08 07:39] LABS: BASO # 0.1 K/uL (0.0-0.2); BASO % 1.2 % (0.0-2.0); EOS # 0.3 K/uL (0.0-0.7); EOS % 5.2 % (0.0-4.0); HEMOGLOBIN 12.1 g/dL (11.0-16.0); LYMPH # 1.1 K/uL (1.0-4.3); LYMPH % 18.1 % (20.0-40.0); MEAN CELL VOLUME 78.4 fL (81.0-99.0); MEAN CORPUSCULAR HEMOGLOBIN 26.3 pg (27.0-31.0); MEAN CORPUSCULAR HGB CONC 33.5 g/dL (33.0-37.0); MEAN PLATELET VOLUME 8.9 fL (7.2-11.7); MONO # 0.5 K/uL (0.0-0.8); MONO % 8.7 % (0.0-10.0); NEUT # 4.1 K/uL (1.8-7.0); NEUT % 66.8 % (50.0-75.0); RBC 4.61 Mil/uL (3.80-5.20); RED CELL DISTRIBUTION WIDTH 14.6 % (11.5-14.5); WHITE BLOOD COUNT 6.2 K/uL (4.8-10.8)
[2018-11-08] MEDS: (Novolog) Insulin Aspart, Recombinant 100 u/ml 10 ml vial SC SCH ×4 (07:46→22:08)
[2018-11-08 07:50] LABS: BLOOD UREA NITROGEN 21 mg/dL (7-17); CALCIUM 8.7 mg/dl (8.6-10.4); GFR NON-AFRICAN AMERICAN 53
[2018-11-08] MEDS: Pantoprazole 40 mg EC Tab PO SCH (09:51)
[2018-11-08] MEDS: Aritificial Tears (15ml) OU SCH ×2 (09:52→17:40)
[2018-11-08] MEDS: Metoprolol Succinate 12.5 mg XL Tab PO SCH ×2 (09:52→17:41)
[2018-11-08 12:36] LABS: GLYCOMARK(R) 3.1 mcg/mL (7.5-28.4)
[2018-11-08] MEDS: Digoxin 125 mcg (0.125 mg) Tab PO SCH (17:40)
--- NOTE | 2018-11-08 17:43 | CP.PCM.PCO ---
<Errol Stanley - Last Filed: 11/08/18 17:42> Physician Communication Note - Physician Communication Note Physician Communication Note: Transfer of Care Addendum Addendum: 11/08/18 17:[address] Alejandro as outpt enchilada maker; Dr. Alejandro will resume care inpt. D/w son as well as primary - Dr. Stanley. <[place] Lauren - Last Filed: 11/08/18 18:14> Attending/Attestation - Attestation I have personally seen and examined this patient.: Yes I have fully participated in the care of the patient.: Yes I have reviewed all pertinent clinical information: Yes Notes (Text): 11/08/18 18:13 pt sees for his cardiovascular care informed to have evaluate and treat
--- NOTE | 2018-11-08 19:32 | CP.PCM.PN ---
Subjective - Date & Time of Evaluation Date of Evaluation: 11/08/18 Time of Evaluation: 10:15 - Subjective Subjective: clinically same Objective - Vital Signs/Intake and Output Vital Signs (last 24 hours): Temp Pulse Resp BP Pulse Ox 97.5 F L 78 20 155/79 H 92 L 11/08/18 15:00 11/08/18 15:00 11/08/18 15:00 11/08/18 15:00 11/08/18 15:00 - Medications Medications: Current Medications Acetaminophen (Tylenol 325mg Tab) 650 mg PO Q6 PRN PRN Reason: Pain, moderate (4-7) Last Admin: 11/07/18 18:05 Dose: 650 mg Apixaban (Eliquis) 2.5 mg PO BID [facility] Last Admin: 11/08/18 17:40 Dose: 2.5 mg Artificial Tears (Artificial Tears) 0.4 ml OU BID [facility] Last Admin: 11/08/18 17:40 Dose: 1 drop Dextrose (Dextrose 50% Inj) 0 ml IV STAT PRN; Protocol PRN Reason: Hypoglycemia Protocol Dextrose (Glutose 15) 0 gm PO ONCE PRN; Protocol PRN Reason: Hypoglycemia Protocol Digoxin (Digoxin) 0.125 mg PO DAILY@1800 [facility] Last Admin: 11/08/18 17:40 Dose: 0.125 mg Glucagon (Glucagen Diagnostic Kit) 0 mg IM STAT PRN; Protocol PRN Reason: Hypoglycemia Protocol Insulin Aspart (Novolog) 0 unit SC [facility]; Protocol Last Admin: 11/08/18 17:41 Dose: Not Given Metformin HCl (Glucophage) 500 mg PO BID [facility] Last Admin: 11/08/18 17:40 Dose: 500 mg Metoprolol Succinate (Toprol Xl) 12.5 mg PO BID [facility] Last Admin: 11/08/18 17:41 Dose: 12.5 mg Mupirocin (Bactroban Ointment) 1 gm TOP DAILY [facility] Last Admin: 11/08/18 09:52 Dose: 1 applic Pantoprazole Sodium (Protonix Ec Tab) 40 mg PO DAILY [facility] Last Admin: 11/08/18 09:51 Dose: 40 mg Rosuvastatin Calcium (Crestor) 10 mg PO [facility] Last Admin: 11/07/18 22:13 Dose: 10 mg Sitagliptin Phosphate (Januvia) 50 mg PO DAILY [facility] Last Admin: 11/08/18 09:51 Dose: 50 mg - Labs Labs: 11/08/18 07:17 11/08/18 07:17 PT 17.5 SECONDS (9.7-12.2) H 11/06/18 07:29 INR 1.6 11/06/18 07:29 - Constitutional Appears: Well - Head Exam Head Exam: ATRAUMATIC, NORMAL INSPECTION, NORMOCEPHALIC - Eye Exam Eye Exam: EOMI, Normal appearance, PERRL Pupil Exam: NORMAL ACCOMODATION, PERRL - ENT Exam ENT Exam: Mucous Membranes Moist, Normal Exam - Neck Exam Neck Exam: Full ROM, Normal Inspection. absent: Lymphadenopathy - Respiratory Exam Respiratory Exam: Decreased Breath Sounds - Cardiovascular Exam Cardiovascular Exam: REGULAR RHYTHM, +S1, +S2 - GI/Abdominal Exam GI & Abdominal Exam: Soft, Diminished Bowel Sounds - Rectal Exam Rectal Exam: Deferred
[2018-11-09] MEDS: (Novolog) Insulin Aspart, Recombinant 100 u/ml 10 ml vial SC SCH ×4 (07:48→21:37)
[2018-11-09] MEDS: Pantoprazole 40 mg EC Tab PO SCH (09:48)
[2018-11-09] MEDS: Metoprolol Succinate 12.5 mg XL Tab PO SCH ×2 (09:48→17:25)
[2018-11-09] MEDS: Aritificial Tears (15ml) OU SCH ×2 (09:48→17:25)
[2018-11-09] MEDS: Digoxin 125 mcg (0.125 mg) Tab PO SCH (17:25)
--- NOTE | 2018-11-09 17:51 | CP.PCM.PN ---
Subjective - Date & Time of Evaluation Date of Evaluation: 11/09/18 Time of Evaluation: 10:30 - Subjective Subjective: clinically same Objective - Vital Signs/Intake and Output Vital Signs (last 24 hours): Temp Pulse Resp BP Pulse Ox 97.3 F L 66 20 156/80 H 96 11/09/18 15:05 11/09/18 15:05 11/09/18 15:05 11/09/18 15:05 11/09/18 15:05 Intake and Output: 11/09/18 11/09/18 06:59 18:59 Intake Total 200 Balance 200 - Medications Medications: Current Medications Acetaminophen (Tylenol 325mg Tab) 650 mg PO Q6 PRN PRN Reason: Pain, moderate (4-7) Last Admin: 11/07/18 18:05 Dose: 650 mg Apixaban (Eliquis) 2.5 mg PO BID [facility] Last Admin: 11/09/18 17:25 Dose: 2.5 mg Artificial Tears (Artificial Tears) 0.4 ml OU BID [facility] Last Admin: 11/09/18 17:25 Dose: 1 drop Dextrose (Dextrose 50% Inj) 0 ml IV STAT PRN; Protocol PRN Reason: Hypoglycemia Protocol Dextrose (Glutose 15) 0 gm PO ONCE PRN; Protocol PRN Reason: Hypoglycemia Protocol Digoxin (Digoxin) 0.125 mg PO DAILY@1800 [facility] Last Admin: 11/09/18 17:25 Dose: 0.125 mg Glucagon (Glucagen Diagnostic Kit) 0 mg IM STAT PRN; Protocol PRN Reason: Hypoglycemia Protocol Insulin Aspart (Novolog) 0 unit [facility]; Protocol Last Admin: 11/09/18 16:49 Dose: Not Given Metformin HCl (Glucophage) 500 mg PO BID [facility] Last Admin: 11/09/18 17:25 Dose: 500 mg Metoprolol Succinate (Toprol Xl) 12.5 mg PO BID [facility] Last Admin: 11/09/18 17:25 Dose: 12.5 mg Mupirocin (Bactroban Ointment) 1 gm TOP DAILY [facility] Last Admin: 11/09/18 09:49 Dose: 1 applic Pantoprazole Sodium (Protonix Ec Tab) 40 mg PO DAILY [facility] Last Admin: 11/09/18 09:48 Dose: 40 mg Rosuvastatin Calcium (Crestor) 10 mg PO [facility] Last Admin: 11/08/18 23:00 Dose: 10 mg Sitagliptin Phosphate (Januvia) 50 mg PO DAILY [facility] Last Admin: 11/09/18 09:48 Dose: 50 mg - Labs Labs: 11/08/18 07:17 11/08/18 07:17 PT 17.5 SECONDS (9.7-12.2) H 11/06/18 07:29 INR 1.6 11/06/18 07:29 - Constitutional Appears: Well - Head Exam Head Exam: ATRAUMATIC, NORMAL INSPECTION, NORMOCEPHALIC - Eye Exam Eye Exam: EOMI, Normal appearance, PERRL Pupil Exam: NORMAL ACCOMODATION, PERRL - ENT Exam ENT Exam: Mucous Membranes Moist, Normal Exam - Neck Exam Neck Exam: Full ROM, Normal Inspection. absent: Lymphadenopathy - Respiratory Exam Respiratory Exam: Decreased Breath Sounds - Cardiovascular Exam Cardiovascular Exam: REGULAR RHYTHM, +S1, +S2 - GI/Abdominal Exam GI & Abdominal Exam: Soft, Diminished Bowel Sounds - Rectal Exam Rectal Exam: Deferred
[2018-11-10] MEDS: (Novolog) Insulin Aspart, Recombinant 100 u/ml 10 ml vial SC SCH ×4 (08:07→21:18)
[2018-11-10] MEDS: Pantoprazole 40 mg EC Tab PO SCH (09:45)
[2018-11-10] MEDS: Aritificial Tears (15ml) OU SCH ×2 (09:45→17:19)
[2018-11-10] MEDS: Metoprolol Succinate 12.5 mg XL Tab PO SCH ×2 (09:45→17:18)
[2018-11-10] MEDS: Digoxin 125 mcg (0.125 mg) Tab PO SCH (17:18)
--- NOTE | 2018-11-10 19:31 | CP.PCM.PN ---
Subjective - Date & Time of Evaluation Date of Evaluation: 11/10/18 Time of Evaluation: 09:15 - Subjective Subjective: clinically same Objective - Vital Signs/Intake and Output Vital Signs (last 24 hours): Temp Pulse Resp BP Pulse Ox 97.8 F 66 22 129/73 98 11/10/18 15:42 11/10/18 15:42 11/10/18 15:42 11/10/18 15:42 11/10/18 15:42 - Medications Medications: Current Medications Acetaminophen (Tylenol 325mg Tab) 650 mg PO Q6 PRN PRN Reason: Pain, moderate (4-7) Last Admin: 11/10/18 09:51 Dose: 650 mg Apixaban (Eliquis) 2.5 mg PO BID [facility] Last Admin: 11/10/18 17:19 Dose: 2.5 mg Artificial Tears (Artificial Tears) 0.4 ml OU BID [facility] Last Admin: 11/10/18 17:19 Dose: 1 drop Dextrose (Dextrose 50% Inj) 0 ml IV STAT PRN; Protocol PRN Reason: Hypoglycemia Protocol Dextrose (Glutose 15) 0 gm PO ONCE PRN; Protocol PRN Reason: Hypoglycemia Protocol Digoxin (Digoxin) 0.125 mg PO DAILY@1800 [facility] Last Admin: 11/10/18 17:18 Dose: 0.125 mg Glucagon (Glucagen Diagnostic Kit) 0 mg IM STAT PRN; Protocol PRN Reason: Hypoglycemia Protocol Insulin Aspart (Novolog) 0 unit SC [facility]; Protocol Last Admin: 11/10/18 17:38 Dose: 1 unit Metformin HCl (Glucophage) 500 mg PO BID [facility] Last Admin: 11/10/18 17:18 Dose: 500 mg Metoprolol Succinate (Toprol Xl) 12.5 mg PO BID [facility] Last Admin: 11/10/18 17:18 Dose: 12.5 mg Mupirocin (Bactroban Ointment) 1 gm TOP DAILY [facility] Last Admin: 11/10/18 09:45 Dose: 1 applic Pantoprazole Sodium (Protonix Ec Tab) 40 mg PO DAILY [facility] Last Admin: 11/10/18 09:45 Dose: 40 mg Rosuvastatin Calcium (Crestor) 10 mg PO HS [facility] Last Admin: 11/09/18 22:01 Dose: 10 mg Sitagliptin Phosphate (Januvia) 50 mg PO DAILY [facility] Last Admin: 02/08/19 09:45 Dose: 50 mg - Labs Labs: 11/08/18 07:17 11/08/18 07:17 PT 17.5 SECONDS (9.7-12.2) H 11/06/18 07:29 INR 1.6 11/06/18 07:29
[2018-11-11] MEDS: (Novolog) Insulin Aspart, Recombinant 100 u/ml 10 ml vial SC SCH ×4 (07:30→22:08)
[2018-11-11] MEDS: Pantoprazole 40 mg EC Tab PO SCH (09:49)
[2018-11-11] MEDS: Aritificial Tears (15ml) OU SCH ×2 (09:55→18:20)
[2018-11-11] MEDS: Metoprolol Succinate 12.5 mg XL Tab PO SCH ×2 (09:55→18:20)
--- NOTE | 2018-11-11 17:25 | CP.PCM.PN ---
Subjective - Date & Time of Evaluation Date of Evaluation: 11/11/18 Time of Evaluation: 10:30 - Subjective Subjective: clinically same Objective - Vital Signs/Intake and Output Vital Signs (last 24 hours): Temp Pulse Resp BP Pulse Ox 97.3 F L 73 18 123/81 100 11/11/18 16:30 11/11/18 16:30 11/11/18 16:30 11/11/18 16:30 11/11/18 16:30 - Medications Medications: Current Medications Acetaminophen (Tylenol 325mg Tab) 650 mg PO Q6 PRN PRN Reason: Pain, moderate (4-7) Last Admin: 11/10/18 09:51 Dose: 650 mg Apixaban (Eliquis) 2.5 mg PO BID [facility] Last Admin: 11/11/18 09:49 Dose: 2.5 mg Artificial Tears (Artificial Tears) 0.4 ml OU BID [facility] Last Admin: 11/11/18 09:55 Dose: 1 drop Dextrose (Dextrose 50% Inj) 0 ml IV STAT PRN; Protocol PRN Reason: Hypoglycemia Protocol Dextrose (Glutose 15) 0 gm PO ONCE PRN; Protocol PRN Reason: Hypoglycemia Protocol Digoxin (Digoxin) 0.125 mg PO DAILY@1800 [facility] Last Admin: 11/10/18 17:18 Dose: 0.125 mg Glucagon (Glucagen Diagnostic Kit) 0 mg IM STAT PRN; Protocol PRN Reason: Hypoglycemia Protocol Insulin Aspart (Novolog) 0 unit [facility]; Protocol Last Admin: 11/11/18 17:07 Dose: Not Given Metformin HCl (Glucophage) 500 mg PO BID [facility] Last Admin: 11/11/18 09:49 Dose: 500 mg Metoprolol Succinate (Toprol Xl) 12.5 mg PO BID [facility] Last Admin: 11/11/18 09:55 Dose: 12.5 mg Mupirocin (Bactroban Ointment) 1 gm TOP DAILY [facility] Last Admin: 11/11/18 11:58 Dose: 1 applic Pantoprazole Sodium (Protonix Ec Tab) 40 mg PO DAILY [facility] Last Admin: 11/11/18 09:49 Dose: 40 mg Rosuvastatin Calcium (Crestor) 10 mg PO HS [facility] Last Admin: 11/10/18 21:24 Dose: 10 mg Sitagliptin Phosphate (Januvia) 50 mg PO DAILY [facility] Last Admin: 11/11/18 09:49 Dose: 50 mg - Labs Labs: 11/08/18 07:17 11/08/18 07:17 PT 17.5 SECONDS (9.7-12.2) H 11/06/18 07:29 INR 1.6 11/06/18 07:29 - Constitutional Appears: Well - Head Exam Head Exam: ATRAUMATIC, NORMAL INSPECTION, NORMOCEPHALIC - Eye Exam Eye Exam: EOMI, Normal appearance, PERRL Pupil Exam: NORMAL ACCOMODATION, PERRL - ENT Exam ENT Exam: Mucous Membranes Moist, Normal Exam - Neck Exam Neck Exam: Full ROM, Normal Inspection. absent: Lymphadenopathy - Respiratory Exam Respiratory Exam: Decreased Breath Sounds - Cardiovascular Exam Cardiovascular Exam: REGULAR RHYTHM, +S1, +S2 - GI/Abdominal Exam GI & Abdominal Exam: Soft, Diminished Bowel Sounds - Rectal Exam Rectal Exam: Deferred
[2018-11-11] MEDS: Digoxin 125 mcg (0.125 mg) Tab PO SCH (18:20)
[2018-11-12] MEDS: (Novolog) Insulin Aspart, Recombinant 100 u/ml 10 ml vial SC SCH ×4 (07:55→22:21)
[2018-11-12] MEDS: Pantoprazole 40 mg EC Tab PO SCH (10:11)
[2018-11-12] MEDS: Aritificial Tears (15ml) OU SCH ×2 (10:12→17:54)
[2018-11-12] MEDS: Metoprolol Succinate 12.5 mg XL Tab PO SCH ×2 (12:00→17:55)
--- NOTE | 2018-11-12 16:29 | CP.PCM.PN ---
Subjective - Date & Time of Evaluation Date of Evaluation: 11/12/18 Time of Evaluation: 09:30 - Subjective Subjective: clinically same Objective - Vital Signs/Intake and Output Vital Signs (last 24 hours): Temp Pulse Resp BP Pulse Ox 97.4 F L 65 18 133/72 99 11/12/18 07:25 11/12/18 07:25 11/12/18 07:25 11/12/18 07:25 11/12/18 07:25 Intake and Output: 11/12/18 11/12/18 06:59 18:59 Intake Total 200 Balance 200 - Medications Medications: Current Medications Acetaminophen (Tylenol 325mg Tab) 650 mg PO Q6 PRN PRN Reason: Pain, moderate (4-7) Last Admin: 11/11/18 18:25 Dose: 650 mg Apixaban (Eliquis) 2.5 mg PO BID [facility] Last Admin: 11/12/18 10:11 Dose: 2.5 mg Artificial Tears (Artificial Tears) 0.4 ml OU BID [facility] 234 [facility]S [facility] Last Admin: 11/12/18 10:12 Dose: 1 drop Dextrose (Dextrose 50% Inj) 0 ml IV STAT PRN; Protocol PRN Reason: Hypoglycemia Protocol Dextrose (Glutose 15) 0 gm PO ONCE PRN; Protocol PRN Reason: Hypoglycemia Protocol Digoxin (Digoxin) 0.125 mg PO DAILY@1800 [facility]S [facility] Last Admin: 11/11/18 18:20 Dose: 0.125 mg Glucagon (Glucagen Diagnostic Kit) 0 mg IM STAT PRN; Protocol PRN Reason: Hypoglycemia Protocol Insulin Aspart (Novolog) 0 unit SC [facility]; Protocol Last Admin: 11/12/18 12:39 Dose: 2 unit Metformin HCl (Glucophage) 500 mg PO BID [facility] 234 [facility]S [facility] Last Admin: 11/12/18 10:11 Dose: 500 mg Metoprolol Succinate (Toprol Xl) 12.5 mg PO BID [facility] 234 [facility]S [facility] Last Admin: 11/12/18 12:00 Dose: 12.5 mg Mupirocin (Bactroban Ointment) 1 gm TOP DAILY [facility] 234 [facility]S [facility] Last Admin: 11/12/18 10:12 Dose: 1 applic Pantoprazole Sodium (Protonix Ec Tab) 40 mg PO DAILY [facility] 234 [facility]S [facility] Last Admin: 11/12/18 10:11 Dose: 40 mg Rosuvastatin Calcium (Crestor) 10 mg PO [facility] Last Admin: 11/11/18 22:08 Dose: 10 mg Sitagliptin Phosphate (Januvia) 50 mg PO DAILY [facility] Last Admin: 11/12/18 10:11 Dose: 50 mg - Labs Labs: 11/08/18 07:17 11/08/18 07:17 PT 17.5 SECONDS (9.7-12.2) H 11/06/18 07:29 INR 1.6 11/06/18 07:29 - Constitutional Appears: Well - Head Exam Head Exam: ATRAUMATIC, NORMAL INSPECTION, NORMOCEPHALIC - Eye Exam Eye Exam: EOMI, Normal appearance, PERRL Pupil Exam: NORMAL ACCOMODATION, PERRL - ENT Exam ENT Exam: Mucous Membranes Moist, Normal Exam - Neck Exam Neck Exam: Full ROM, Normal Inspection. absent: Lymphadenopathy - Respiratory Exam Respiratory Exam: Decreased Breath Sounds - Cardiovascular Exam Cardiovascular Exam: REGULAR RHYTHM, +S1, +S2 - GI/Abdominal Exam GI & Abdominal Exam: Soft, Diminished Bowel Sounds - Rectal Exam Rectal Exam: Deferred
[2018-11-12 17:15] VITALS: RESP 20
[2018-11-12] MEDS: Digoxin 125 mcg (0.125 mg) Tab PO SCH (17:54)
[2018-11-13] MEDS: (Novolog) Insulin Aspart, Recombinant 100 u/ml 10 ml vial SC SCH ×4 (07:51→22:09)
[2018-11-13] MEDS: Aritificial Tears (15ml) OU SCH ×2 (09:37→18:16)
[2018-11-13] MEDS: Metoprolol Succinate 12.5 mg XL Tab PO SCH ×2 (09:37→18:17)
[2018-11-13] MEDS: Pantoprazole 40 mg EC Tab PO SCH (09:37)
--- NOTE | 2018-11-13 14:57 | CP.PCM.PN ---
Subjective - Date & Time of Evaluation Date of Evaluation: 11/13/18 Time of Evaluation: 10:30 - Subjective Subjective: clinically same Objective - Vital Signs/Intake and Output Vital Signs (last 24 hours): Temp Pulse Resp BP Pulse Ox 98.1 F 80 20 153/75 H 97 11/13/18 07:00 11/13/18 07:00 11/13/18 07:00 11/13/18 07:00 11/13/18 07:00 Intake and Output: 11/13/18 11/13/18 06:59 18:59 Intake Total 200 Balance 200 - Medications Medications: Current Medications Acetaminophen (Tylenol 325mg Tab) 650 mg PO Q6 PRN PRN Reason: Pain, moderate (4-7) Last Admin: 11/11/18 18:25 Dose: 650 mg Apixaban (Eliquis) 2.5 mg PO BID [facility] Last Admin: 11/13/18 09:37 Dose: 2.5 mg Artificial Tears (Artificial Tears) 0.4 ml OU BID [facility] Last Admin: 11/13/18 09:37 Dose: 1 drop Dextrose (Dextrose 50% Inj) 0 ml IV STAT PRN; Protocol PRN Reason: Hypoglycemia Protocol Dextrose (Glutose 15) 0 gm PO ONCE PRN; Protocol PRN Reason: Hypoglycemia Protocol Digoxin (Digoxin) 0.125 mg PO DAILY@1800 [facility] Last Admin: 11/12/18 17:54 Dose: 0.125 mg Glucagon (Glucagen Diagnostic Kit) 0 mg IM STAT PRN; Protocol PRN Reason: Hypoglycemia Protocol Insulin Aspart (Novolog) 0 unit [facility]; Protocol Last Admin: 11/13/18 11:56 Dose: Not Given Metformin HCl (Glucophage) 500 mg PO BID [facility] Last Admin: 11/13/18 09:37 Dose: 500 mg Metoprolol Succinate (Toprol Xl) 12.5 mg PO BID [facility] Last Admin: 11/13/18 09:37 Dose: 12.5 mg Mupirocin (Bactroban Ointment) 1 gm TOP DAILY [facility] Last Admin: 11/13/18 09:37 Dose: 1 applic Pantoprazole Sodium (Protonix Ec Tab) 40 mg PO DAILY [facility] Last Admin: 11/13/18 09:37 Dose: 40 mg Rosuvastatin Calcium (Crestor) 10 mg PO [facility] Last Admin: 11/12/18 22:20 Dose: 10 mg - Labs Labs: 11/08/18 07:17 11/08/18 07:17 PT 17.5 SECONDS (9.7-12.2) H 11/06/18 07:29 INR 1.6 11/06/18 07:29 - Constitutional Appears: Well - Head Exam Head Exam: ATRAUMATIC, NORMAL INSPECTION, NORMOCEPHALIC - Eye Exam Eye Exam: EOMI, Normal appearance, PERRL Pupil Exam: NORMAL ACCOMODATION, PERRL - ENT Exam ENT Exam: Mucous Membranes Moist, Normal Exam - Neck Exam Neck Exam: Full ROM, Normal Inspection. absent: Lymphadenopathy - Respiratory Exam Respiratory Exam: Decreased Breath Sounds - Cardiovascular Exam Cardiovascular Exam: REGULAR RHYTHM, +S1, +S2 - GI/Abdominal Exam GI & Abdominal Exam: Soft, Diminished Bowel Sounds - Rectal Exam Rectal Exam: Deferred
[2018-11-13] MEDS: Digoxin 125 mcg (0.125 mg) Tab PO SCH (18:17)
[2018-11-13 18:18] VITALS: PULSE 70
[2018-11-14] MEDS: (Novolog) Insulin Aspart, Recombinant 100 u/ml 10 ml vial SC SCH ×2 (07:59→11:40)
[2018-11-14] MEDS: Metoprolol Succinate 12.5 mg XL Tab PO SCH (10:47)
[2018-11-14] MEDS: Aritificial Tears (15ml) OU SCH (10:47)
[2018-11-14] MEDS: Pantoprazole 40 mg EC Tab PO SCH (10:47)
[2018-11-14 11:31] LABS: BLOOD UREA NITROGEN 17 mg/dL (7-17); CALCIUM 9.4 mg/dl (8.6-10.4); GFR NON-AFRICAN AMERICAN 60
--- NOTE | 2018-11-14 12:27 | CP.PCM.PN ---
Subjective - Date & Time of Evaluation Date of Evaluation: 11/14/18 Time of Evaluation: 10:45 - Subjective Subjective: clinically same Objective - Vital Signs/Intake and Output Vital Signs (last 24 hours): Temp Pulse Resp BP Pulse Ox 97.3 F L 69 20 134/65 99 11/14/18 07:10 11/14/18 10:48 11/14/18 07:10 11/14/18 10:48 11/14/18 07:10 Intake and Output: 11/14/18 11/14/18 06:59 18:59 Intake Total 200 Balance 200 - Medications Medications: Current Medications Acetaminophen (Tylenol 325mg Tab) 650 mg PO Q6 PRN PRN Reason: Pain, moderate (4-7) Last Admin: 11/11/18 18:25 Dose: 650 mg Apixaban (Eliquis) 2.5 mg PO BID [facility] Last Admin: 11/14/18 10:47 Dose: 2.5 mg Artificial Tears (Artificial Tears) 0.4 ml OU BID [facility] Last Admin: 11/14/18 10:47 Dose: 1 drop Dextrose (Dextrose 50% Inj) 0 ml IV STAT PRN; Protocol PRN Reason: Hypoglycemia Protocol Dextrose (Glutose 15) 0 gm PO ONCE PRN; Protocol PRN Reason: Hypoglycemia Protocol Digoxin (Digoxin) 0.125 mg PO DAILY@1800 [facility] Last Admin: 11/13/18 18:17 Dose: 0.125 mg Glucagon (Glucagen Diagnostic Kit) 0 mg IM STAT PRN; Protocol PRN Reason: Hypoglycemia Protocol Insulin Aspart (Novolog) 0 unit SC [facility]; Protocol Last Admin: 11/14/18 11:40 Dose: Not Given Metformin HCl (Glucophage) 500 mg PO BID [facility] Last Admin: 11/14/18 10:47 Dose: 500 mg Metoprolol Succinate (Toprol Xl) 12.5 mg PO BID [facility] Last Admin: 11/14/18 10:47 Dose: 12.5 mg Mupirocin (Bactroban Ointment) 1 gm TOP DAILY [facility] Last Admin: 11/14/18 10:47 Dose: 1 applic Pantoprazole Sodium (Protonix Ec Tab) 40 mg PO DAILY [facility] Last Admin: 11/14/18 10:47 Dose: 40 mg Rosuvastatin Calcium (Crestor) 10 mg PO [facility] Last Admin: 11/13/18 23:02 Dose: 10 mg - Labs Labs: 11/08/18 07:17 11/14/18 11:09 PT 17.5 SECONDS (9.7-12.2) H 11/06/18 07:29 INR 1.6 11/06/18 07:29
[2018-11-14 17:48] VITALS: BP 160/71; PULSE 93; TEMP 97.8; O2SAT 100
== END 2018-11-14 18:00 | DRG 605 ==
LOC: C.ER 18:12 → C.6T 21:44 → OBSVTOIN 11-06 17:51
PROVIDERS: ADMIT Internal Medicine Nephrology; ATTEND Internal Medicine Nephrology
DX: S40.012A Contusion of left shoulder, initial encounter (principal); F07.81 Postconcussional syndrome; E11.9 Type 2 diabetes mellitus without complications; S60.212A Contusion of left wrist, initial encounter; G62.9 Polyneuropathy, unspecified; I11.0 Hypertensive heart disease with heart failure; I50.9 Heart failure, unspecified; M48.02 Spinal stenosis, cervical region; M47.9 Spondylosis, unspecified; M50.323 Other cervical disc degeneration at C6-C7 level; R56.9 Unspecified convulsions; M81.0 Age-related osteoporosis without current pathological fracture; R55 Syncope and collapse; W01.0XXA Fall on same level from slipping, tripping and stumbling without subsequent striking against object, initial encounter